=== PATIENT | female | born 1950 | race Two or more races ===

== ENCOUNTER 2020-10-02 12:38 | Emergency (ER) | payer MEDICARE, SELFPAY ==
--- NOTE | ~2020-10-02 | CT_ITS ---
EXAMINATION CT ABDOMEN AND PELVIS WITHOUT CONTRAST CT LUMBAR SPINE WITHOUT CONTRAST CLINICAL INFORMATION: Left back pain COMPARISON: CT abdomen/pelvis dated 05/14/2018c, 08/17/2013 and 06/09/2009. Abdominal ultrasound dated 07/09/2011. TECHNIQUE: Multidetector volumetric CT imaging of the abdomen and pelvis was obtained without the use of intravenous contrast. Coronal and sagittal reformats were reviewed. Dedicated reconstructions of the lumbar spine were created the primary data see. Coronal and sagittal reformats are reviewed. This CT examination was performed using dose optimization techniques as appropriate, variously including the following: *Automated exposure control *Adjustment of mA and/or kV according to patient size (this includes techniques or standardized protocols for targeted exams where dose is matched to indication/reason for exam; i.e. extremities or head) *Use of iterative reconstruction technique DLP: 348 mGy-cm. FINDINGS: IMAGED THORAX: Unremarkable. HEPATOBILIARY: Liver normal in size, contour and morphology. No suspicious lesions. No intra or extrahepatic biliary dilation. Gallbladder is abnormal in appearance demonstrating hyperdense nodular wall thickening (versus cholelithiasis) of the body and fundus, the largest nodular component measuring up to 9 mm. No pericholecystic fluid. PANCREAS: Unremarkable. SPLEEN: Unremarkable. ADRENAL GLANDS: Unremarkable. KIDNEYS, URETERS AND BLADDER: Kidneys normal in size, axis and morphology. No hydronephrosis or urinary calculi. Ureters normal in course and caliber. Bladder grossly unremarkable.. GASTROINTESTINAL TRACT: Left colonic diverticulosis most concentrated within sigmoid colon. No evidence of diverticulitis. PELVIC VISCERA: Calcified fibroid present within the left uterine fundus. Uterus and adnexa otherwise unremarkable. LYMPH NODES: No lymphadenopathy. PERITONEUM/BODY WALL: Unremarkable. VASCULAR STRUCTURES: Aorta is atherosclerotic. OSSEOUS STRUCTURES: No acute or suspicious osseous abnormalities. LUMBAR SPINE: No fracture or traumatic malalignment. Small endplate osteophytes present throughout the lumbar spine. Mild loss of disc space height at L2-L3. Mild facet arthropathy throughout the lumbar spine. Small diffuse disc bulges present at L2-L3, L3-L4, L4-L5 and L5-S1. No significant foraminal narrowing is evident. No significant central canal stenosis. Paraspinal soft tissues unremarkable. CT/CT abdomen pelvis wo con IMPRESSION: * No acute findings within the abdomen or pelvis to explain the patient's symptomatology. * Left colonic diverticulosis without evidence of diverticulitis. * Abnormal appearance of the gallbladder showing nodular hyperdense mural thickening of the body and fundus is stable since 2008, previously shown on ultrasound in 2010 to represent adenomyomatosis. Consider nonemergent repeat ultrasound to exclude underlying mass. * No acute fracture or traumatic malalignment with respect to the lumbar spine. There is mild discogenic degenerative disease with small disc bulges throughout the lumbar spine, however no significant foraminal or central canal stenosis.
[2020-10-02 12:56] VITALS: BP 159/64; PULSE 96; RESP 16; TEMP 36.7; O2SAT 99; BMI 25.5
--- NOTE | 2020-10-02 14:59 | ED_ITS ---
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 Pain has been constant, pressure sensation, radiating to her left lower quadrant. She states she had similar pain 2 years ago but is unsure what it was from. She denies injuries or falls. She denies fevers, chest pain, shortness of breath, vomiting, diarrhea, dysuria, hematuria, incontinence. She has not taken any medication for her pain. Onset (ago): day(s) (2) Radiation: back Severity: moderate Quality: constant Related Data Previous Rx's Medication Instructions Recorded famotidine 40 mg tablet 40 mg PO DAILY #30 tab 08/01/20 docusate sodium 100 mg capsule 100 mg PO DAILY 30 Days #30 cap 08/15/20 sennosides 8.6 mg tablet 17.2 mg PO BEDTIME PRN #60 tab 09/21/20 lidocaine [Lidoderm] 1 patch TOPICAL DAILY PRN 7 Days 10/02/20 #7 ea Allergies Allergy/AdvReac Type Severity Reaction Status Date / Time Penicillins [PENICILLINS] Allergy Severe THROAT Unverified 04/21/20 14:52 CLOSES/HIVES penicillin V Allergy Unknown hives and Verified 04/05/20 00:00 itching Review of Systems Constitutional: Constitutional: Denies fever(s) and Denies frequent falls Eyes: Eyes: Reports no additional eye complaints ENT: Denies dizziness Cardiovascular: Cardiovascular: Denies chest pain and Denies dyspnea Respiratory: Respiratory: Denies dyspnea Gastrointestinal: Gastrointestinal: Denies abdominal pain, Denies diarrhea and Denies vomiting Genitourinary: Genitourinary: Denies hematuria and Denies urinary incontinence Comments: denies dysuria Musculoskeletal: Musculoskeletal: Denies abnormal gait and Denies radiating pain into limb Neurologic: Denies abnormal gait, Denies dizziness and Denies frequent falls Hematologic/Lymphatic: Hematologic/Lymphatic: Denies easy bleeding [facility] Social History Social History (Updated 10/02/20 @ 17:35 by LAST Garcia) Use of substances other than those prescribed or required for medical reasons: No Advance Directives: No Advance Directives Information Provided: Yes Physical Exam Vital Signs: Vital Signs: Last Vital Signs Temp 98.0 F 10/02/20 12:56 Pulse 96 10/02/20 12:56 Resp 16 10/02/20 12:56 BP 159/64 H 10/02/20 12:56 Pulse Ox 99 10/02/20 12:56 Body Mass Index 25.5 Const: Other: sitting upright at the edge of the stretcher HENMT: Head: Yes atraumatic Eyes: Pupils: Equal, round and reactive pupils present Neck: Neck: Yes trachea midline and Yes supple Resp: Effort & Inspection: normal respiratory effort and able to speak in complete sentences Auscultation: clear to auscultation bilaterally Cardio: Rate: regular rate Rhythm: regular rhythm GI: Other: mild tenderness to left flank Inspection: No distended Palpation (GI): Soft to palpation and no guarding Back/Spine/Pelvis: Other: no midline thoracic or lumbar tenderness, tenderness to left paraspinous lumbar region, no rash, negative straight leg raise Skin: Other: warm, dry Neuro: Other: A&O x4, normal strength and sensation bilaterally, able to ambulate with a steady gait Cranial nerves: Yes Equal, round and reactive pupils present Extrem: General: Yes full ROM Psych: Appearance: well kempt Course Course Course Narrative: Patient ambulating in the ED, attempting to leave. I advised her to wait for her discharge instructions, pt. willing to stay. Discussed results. No acute findings, does have an abnormality to her gallbladder which she has had previously, recommended PCP follow up regarding this finding. Labs reveal nonspecific leukocytosis. UA negative. Will dc home with tylenol and lidocaine patches. Return precautions provided. Medical Decision Making [facility] Narrative Medical decision making narrative: 70-year-old female presenting to emergency department with lower back pain Vital significant for mild elevated blood pressure 159/64, nontoxic appearing, hemodynamically stable Will plan for basic labs to assess for leukocytosis, anemia, renal dysfunction. We will check UA for signs of infection. Given her age will plan for CT of her abdomen and pelvis to rule out underlying intra-abdominal process. Will obtain CT of her lumbar spine to rule out fracture. Reassuring she does not have midline tenderness. Pain is atraumatic. No red flags for cord compression. No IV drug use or spinal injections, afebrile, no history of diabetes, low concern for SEA. Renal stone is on the differential given left-sided pain, will assess for hematuria on her UA. Doubt this is AAA given she does not have midline tenderness, no pulsatile masses, will evaluate with CT. Will provide tylenol and lidocaine patch in the ED Lab Data Result diagrams: 10/02/20 15:41 10/02/20 15:41 Labs: Lab Results 10/02/20 10/02/20 10/02/20 Range/Units 15:41 15:41 15:41 WBC 12.0 H (4.8-10.8) X10*3/uL RBC 4.54 (4.20-5.50) X10*6/uL Hgb 12.7 (12.0-16.0) g/dl Hct 38.4 (37-47) % MCV 84.6 (80-98) fL MCH 28.0 (27.0-33.0) pg MCHC 33.1 (31.0-35.0) g/dl RDW 14.1 (11.0-16.0) % Plt Count 281 (160-400) X10*3/uL MPV 10.8 (9.4-12.3) fL Immature Gran % (Auto) 0.2 (0.0-0.4) % Neut % (Auto) 68.4 (45-73) % Lymph % (Auto) 18.1 L (20-40) % [place] % (Auto) 11.0 (2-11) % Eos % (Auto) 1.9 (0-4) % Baso % (Auto) 0.4 (0-2) % Lymph # (Auto) 2.2 (1.2-4.9) X10*3/uL [place] # (Auto) 1.3 H (0.1-1.2) X10*3/uL Eos # (Auto) 0.2 (0.0-0.4) X10*3/uL Baso # (Auto) 0.1 (0.0-0.2) X10*3/uL Abs Immat Gran (auto) 0.03 (0.00-0.03) X10*3/uL Absolute Neuts (auto) 8.2 (2.0-8.3) X10*3/uL Absolute Nucleated RBC 0.000 (0.0-0.012) X10*3/uL Nucleated RBC % (auto) 0.0 (0.0-0.2) /100WBC Sodium 138 (135-145) mmol/L Potassium 3.9 (3.3-5.1) mmol/L Chloride 107 (96-108) mmol/L Carbon Dioxide 21 L (22-29) mmol/L Anion Gap 14 (12-20) BUN 11 (9-16) mg/dL Creatinine 0.75 (0.5-1.4) mg/dL Estim Creat Clear Calc 48.1 Estimated GFR > 60 Random Glucose 94 (60-115) mg/dL Calcium 8.8 (8.4-10.2) mg/dL Urine Color YELLOW Urine Appearance CLEAR Urine pH 5.5 (5.0-8.0) Ur Specific [place] >= 1.030 H (1.005-1.025) Urine Protein NEG (NEG-TRACE) MG/DL Urine Glucose (UA) NEG (NEG) MG/DL Urine Ketones NEG (NEG) MG/DL Urine Blood NEG (NEG) Urine Nitrite NEG (NEG) Ur Leukocyte Esterase NEG (NEG) Urine RBC 0 (0) /HPF Urine WBC 1-4 (0-4) /HPF Ur Squamous Epith Cells 1+ /LPF Urine Bacteria NONE /LPF Urine Mucus TRACE /LPF Discharge Plan Discharge Clinical Impression: Back pain Patient Disposition: Home, Self-Care Instructions: Back Pain (ED) Additional Instructions: You were seen in the emergency department for back pain. Please call your doctor tomorrow to make a follow up appointment next week. Your lab test showed your white blood cell count was slightly elevated however this is nonspecific. Your urine showed you are a little bit dehydrated. Your CT imaging did not find a reason for your pain. Please return if your symptoms worsen, increased pain, fevers, vomiting, difficulty walking, weakness, numbness, tingling, loss of bladder/bowel function. Take tylenol for pain as directed if needed. Use lidocaine patches, remove after 12 hours, sent to your pharmacy. You will need to discuss with your doctor your abnormal appearance of your gallbladder to exclude a mass. Your CT findings: No acute findings within the abdomen or pelvis to explain the patient's symptomatology. * Left colonic diverticulosis without evidence of diverticulitis. * Abnormal appearance of the gallbladder showing nodular hyperdense mural thickening of the body and fundus is stable since 2008, previously shown on ultrasound in 2011 to represent adenomyomatosis. Consider nonemergent repeat ultrasound to exclude underlying mass. * No acute fracture or traumatic malalignment with respect to the lumbar spine. There is mild discogenic degenerative disease with small disc bulges throughout the lumbar spine, however no significant foraminal or central canal stenosis. Prescriptions: New lidocaine [Lidoderm] 5 % adhesive patch,medicated 1 patch topical DAILY PRN (Reason: pain ) 7 Days Qty: 7 RF: 0 No Action famotidine 40 mg tablet 40 mg PO DAILY Qty: 30 RF: 3 docusate sodium [Colace] 100 mg capsule 100 mg PO DAILY 30 Days Qty: 30 RF: 3 sennosides [senna] 8.6 mg tablet 17.2 mg PO BEDTIME PRN (Reason: for constipation) Qty: 60 RF: 2 Interventions: ED Discharge Assessment Last Done: 10/02/20 16:26 Discharge Date/Time: 10/02/20 16:26 Print Language: Croatian
[2020-10-02] MEDS: Lidocaine 4 % Patch ADH..PATCH 1 PATCH TRANSDERMA (15:19)
[2020-10-02] MEDS: Acetaminophen 325 MG TABLET 650 MG PO (15:19)
[2020-10-02 15:46] LABS: MANUAL DIFF FLAG NO
[2020-10-02 15:51] LABS: Basophils Absolute Auto 0.1 X10*3/uL (0.0-0.2); Basophils Percent Auto 0.4 % (0-2); Eosinophils Absolute Auto 0.2 X10*3/uL (0.0-0.4); Eosinophils Percent Auto 1.9 % (0-4); Hematocrit 38.4 % (37-47); Hemoglobin 12.7 g/dl (12.0-16.0); Imm Gran Abs Auto 0.03 X10*3/uL (0.00-0.03); Imm Gran Pct Auto 0.2 % (0.0-0.4); Lymphocytes Absolute Auto 2.2 X10*3/uL (1.2-4.9); Lymphocytes Percent Auto 18.1 % (20-40); Mean Corpuscular HGB Conc 33.1 g/dl (31.0-35.0); Mean Corpuscular Volume 84.6 fL (80-98); Mean Platelet Volume 10.8 fL (9.4-12.3); Monocytes Absolute Auto 1.3 X10*3/uL (0.1-1.2); Neutrophils Absolute Auto 8.2 X10*3/uL (2.0-8.3); Neutrophils Percent Auto 68.4 % (45-73); Platelet Count 281 X10*3/uL (160-400); Red Blood Count 4.54 X10*6/uL (4.20-5.50); Red Cell Distribution Width 14.1 % (11.0-16.0)
[2020-10-02 15:56] LABS: Glucose Urine UA NEG (NEG); Leukocyte Esterase Urine NEG (NEG); Nitrite Urine NEG (NEG); PH 5.5 (5.0-8.0); Specific Gravity - Urine >= 1.030 (1.005-1.025); Urine Blood NEG (NEG); Urine Ketones NEG (NEG); Urine Protein NEG (NEG-TRACE)
[2020-10-02 15:57] LABS: Appearance Urine CLEAR; Color Urine YELLOW
[2020-10-02 16:09] LABS: Anion Gap 14 (12-20); Blood Urea Nitrogen 11 mg/dL (9-16); Calcium 8.8 mg/dL (8.4-10.2); Carbon Dioxide 21 mmol/L (22-29); Chloride 107 mmol/L (96-108); Creatinine Clr Calc Pharmacy 48.1; Estimated Glomerular Filt Rate > 60; Glucose Random 94 mg/dL (60-115); Potassium 3.9 mmol/L (3.3-5.1); Sodium 138 mmol/L (135-145)
[2020-10-02 16:23] LABS: Mucus Urine TRACE /LPF; RBC Urine 0 /HPF (0); Squamous Epithelial Cell Urine 1+ /LPF
== END 2020-10-02 16:26 | disposition home or self-care (01) ==
PROVIDERS: Physician Assistant Medical; Emergency Provider Emergency Medicine Emergency Medical Services; PCP Internal Medicine
DX: M54.5 Low back pain (principal); Z79.899 Other long term (current) drug therapy
CPT/HCPCS: 36415; 72131; 74176; 80048; 81001; 85025; 99283

== ENCOUNTER → 2020-10-03 10:12 | Outpatient (BNVA) | payer MEDICARE, SELFPAY | PROVIDERS: PCP Internal Medicine; Visit Provider Nurse Practitioner | DX: Z13.89 Encounter for screening for other disorder (principal) | CPT/HCPCS: Q3014 ==

== ENCOUNTER 2020-10-04 18:24 | Emergency (ER) | payer MEDICARE, SELFPAY ==
--- NOTE | ~2020-10-04 | XR_ITS ---
EXAMINATION: XR ABDOMEN COMPLETE CLINICAL INDICATION: Abdominal pain COMPARISON: CT abdomen pelvis 10/02/2020 TECHNIQUE: 2 views of the abdomen. FINDINGS: The bowel gas pattern is normal with no evidence of ileus or obstruction. No unusual soft tissue calcifications are noted. Calcifications in left hemipelvis related to uterine fibroids seen on prior CT scan. The bones are unremarkable. XR/XR acute abdomen series IMPRESSION: Unremarkable examination. No acute disease.
--- NOTE | ~2020-10-04 | CT_ITS ---
EXAMINATION: CT ABDOMEN AND PELVIS WITH CONTRAST CLINICAL INFORMATION: Diffuse abdominal pain COMPARISON: CT abdomen 10/02/2020 TECHNIQUE: Multidetector volumetric images were obtained from the superior aspect of the liver through the pubic symphysis following administration 85 mL of Omnipaque 350 intravenous contrast. Sagittal and coronal reformatted images were obtained on the technologist's workstation. Oral contrast: No This CT examination was performed using dose optimization techniques as appropriate, variously including the following: *Automated exposure control *Adjustment of mA and/or kV according to patient size (this includes techniques or standardized protocols for targeted exams where dose is matched to indication/reason for exam; i.e. extremities or head) *Use of iterative reconstruction technique DLP: 375 mGy-cm FINDINGS: LUNG BASES: Findings of emphysema are present at the lung bases. No infiltrates or effusions. LIVER, GALLBLADDER, AND BILIARY TREE: The liver is normal in size, shape, and attenuation. No focal hepatic lesion or biliary ductal dilatation is present. Again seen is a nodular mass arising from the fundus of the gallbladder. Further workup with ultrasound is recommended as mentioned previously. PANCREAS: Unremarkable. SPLEEN: Unremarkable. ADRENAL GLANDS: Unremarkable. KIDNEYS AND URETERS: The kidneys are normal in size, shape, and attenuation. A tiny right renal cyst is present. No solid masses are seen. No hydronephrosis, hydroureter, or calculi seen. No perinephric stranding. BLADDER: Unremarkable. GASTROINTESTINAL TRACT: A small hiatal hernia is present. Of note, in the mid sigmoid there is an area of inflammatory change with wall thickening and pericolonic inflammatory change. There is one area where there appears to be a small 9 mm fluid collection in the lateral of the colon. These are new findings when compared to the 10/02/2020 study and are consistent with acute diverticulitis. The small and large bowel are otherwise unremarkable. The appendix is unremarkable. ABDOMINAL WALL: No significant hernia is appreciated. LYMPH NODES: No retroperitoneal lymphadenopathy. VASCULAR: Calcific plaque is present in the aorta and iliac vessels. No aneurysms. PELVIC VISCERA: Calcification in the uterus probably secondary to old fibroid. Ovaries are unremarkable. No free fluid is seen in the pelvis. OSSEOUS STRUCTURES: Unremarkable. CT/CT abdomen pelvis w con IMPRESSION: Acute uncomplicated sigmoid diverticulitis, Other incidental findings include emphysema, abnormal gallbladder which needs ultrasound follow-up, benign right renal cyst and old uterine fibroids
--- NOTE | ~2020-10-04 | XR_ITS ---
EXAMINATION: XR CHEST CLINICAL INFORMATION: Cough. Pain. COMPARISON: Chest x-ray 05/28/2012 TECHNIQUE: 2 views of the chest were obtained. FINDINGS: No significant abnormality is noted involving the heart, lungs, mediastinum, bony thorax or soft tissues. Orthopedic plate and screws at lower cervical spine. XR/XR chest 2V IMPRESSION: Unremarkable examination.
[2020-10-04 19:01] VITALS: BP 165/75; PULSE 96; RESP 20; TEMP 36.6; O2SAT 96; BMI 26.4
[2020-10-04 20:32] VITALS: BP 144/75; PULSE 92; RESP 14; TEMP 36.8; O2SAT 99
--- NOTE | 2020-10-04 21:26 | ED_ITS ---
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 She denies any associated fevers, chills, nausea, vomiting, diarrhea and states that she has continued to have regular bowel movements without noticing blood. She denies any shortness of breath, chest pain/palpitations, or urinary pain/burning/frequency. MD elicited complaint: abdominal pain Related Data Home Medications Medication Instructions Recorded Confirmed acetaminophen 500 mg tablet 500 mg PO Q6H PRN 10/03/20 atorvastatin 40 mg tablet 40 mg PO DAILY 10/03/20 quetiapine 25 mg tablet 25 mg PO BID 10/03/20 Previous Rx's Medication Instructions Recorded lidocaine [Lidoderm] 1 patch TOPICAL DAILY PRN 7 Days 10/02/20 #7 ea docusate sodium 100 mg capsule 100 mg PO DAILY 30 Days #30 cap 10/03/20 famotidine 40 mg tablet 40 mg PO DAILY #30 tab 10/03/20 xeupzd-[id number]-pionnit 1 cap PO QID 30 Days #120 cap 10/03/20 24,000-76,000-120,000 unit capsule,delayed rel sennosides 8.6 mg tablet 17.2 mg PO BEDTIME PRN #60 tab 10/03/20 sulfamethoxazole-trimethoprim 1 tab PO Q12H 7 Days #14 tab 10/05/20 [Bactrim DS] Allergies Allergy/AdvReac Type Severity Reaction Status Date / Time Penicillins [PENICILLINS] Allergy Severe THROAT Verified 10/03/20 10:13 CLOSES/HIVES Review of Systems Review of Systems Pertinent positives and negatives as stated in HPI 10 point review systems is otherwise negative. Physical Exam Vital Signs: Vital Signs: Last Vital Signs Temp 98.2 F 10/05/20 00:00 Pulse 94 10/05/20 04:00 Resp 15 10/05/20 04:00 BP 108/68 10/05/20 04:00 Pulse Ox 98 10/05/20 01:31 Body Mass Index 26.4 VITAL SIGNS: Reviewed. GENERAL: Initially patient appeared in no acute distress and sitting at the edge of the bed, well developed, well nourished. HEAD: Normocephalic/atraumatic, NOSE: Nares patent bilateral OROPHARYNX: no oral lesions noted, posterior pharynx clear NECK: Supple, no adenopathy LUNGS: Normal breath sounds. No adventitious sounds or accessory muscle use. SpO2<99> CARDIOVASCULAR: Regular rate and rhythm without noted murmurs ABDOMEN: Obese, Soft, diffusely tender on mild palpation, non-distended with bowel sounds. SKIN: Inspection of the skin reveals no rashes NEUROLOGIC: Alert and oriented x 4. Course Course Course Narrative: This is a 70-year-old female with history and clinical presentation of unclear etiology after a very extensive workup on 10/02. She was evaluated for the same complaints on 10/02 and on review all of her records it was an otherwise extensive, benign workup with the exception of a small leuko cytosis that was attributed as nonspecific. On review of all investigations at this visit the leukocytosis has increased and is accompanied by a left shift, but otherwise negative urinalysis. KUB was negative for pattern consistent with obstruction/constipation. Will evaluate with a two view chest x-ray although felt that this will not yield additional information. Unable to get adequate abdominal exam as patient jumps all over when the smallest amount of palpation is performed. On review of all investigations patient has acute diverticulitis (uncomplicated as per Radiology report) and will receive initial antibiotics here in the emergency department and then be discharged on remaining course. On re-evaluation patient states that she feels much better. MDM - Abdominal Pain Lab Data Result diagrams: 10/04/20 21:26 10/04/20 21:26 Labs: Lab Results 10/04/20 10/04/20 10/04/20 Range/Units 21:26 21:26 21:27 WBC 14.4 H (4.8-10.8) X10*3/uL RBC 4.49 (4.20-5.50) X10*6/uL Hgb 12.6 (12.0-16.0) g/dl Hct 38.5 (37-47) % MCV 85.7 (80-98) fL MCH 28.1 (27.0-33.0) pg MCHC 32.7 (31.0-35.0) g/dl RDW 13.8 (11.0-16.0) % Plt Count 309 (160-400) X10*3/uL MPV 11.0 (9.4-12.3) fL Immature Gran % (Auto) 0.3 (0.0-0.4) % Neut % (Auto) 75.4 H (45-73) % Lymph % (Auto) 12.8 L (20-40) % [place] % (Auto) 10.0 (2-11) % Eos % (Auto) 1.1 (0-4) % Baso % (Auto) 0.4 (0-2) % Lymph # (Auto) 1.9 (1.2-4.9) X10*3/uL [place] # (Auto) 1.4 H (0.1-1.2) X10*3/uL Eos # (Auto) 0.2 (0.0-0.4) X10*3/uL Baso # (Auto) 0.1 (0.0-0.2) X10*3/uL Abs Immat Gran (auto) 0.05 H (0.00-0.03) X10*3/uL Absolute Neuts (auto) 10.9 H (2.0-8.3) X10*3/uL Absolute Nucleated RBC 0.000 (0.0-0.012) X10*3/uL Nucleated RBC % (auto) 0.0 (0.0-0.2) /100WBC Sodium 139 (135-145) mmol/L Potassium 4.1 (3.3-5.1) mmol/L Chloride 106 (96-108) mmol/L Carbon Dioxide 22 (22-29) mmol/L Anion Gap 15 (12-20) BUN 8 L (9-16) mg/dL Creatinine 0.78 (0.5-1.4) mg/dL Estim Creat Clear Calc 44.7 Estimated GFR > 60 Random Glucose 112 (60-115) mg/dL Lactic Acid 1.1 (0.5-2.0) mmol/L Calcium 8.9 (8.4-10.2) mg/dL Total Bilirubin 0.6 (0.0-1.0) mg/dL AST 17 (5-31) U/L ALT 12 (0-31) U/L Alkaline Phosphatase 110 (39-117) U/L Total Protein 8.0 (6.5-8.0) g/dL Albumin 4.3 (3.5-5.0) g/dL Urine Color Urine Appearance Urine pH (5.0-8.0) Ur Specific [place] (1.005-1.025) Urine Protein (NEG-TRACE) MG/DL Urine Glucose (UA) (NEG) MG/DL Urine Ketones (NEG) MG/DL Urine Blood (NEG) Urine Nitrite (NEG) Ur Leukocyte Esterase (NEG) 10/04/20 Range/Units 21:52 WBC (4.8-10.8) X10*3/uL RBC (4.20-5.50) X10*6/uL Hgb (12.0-16.0) g/dl Hct (37-47) % MCV (80-98) fL MCH (27.0-33.0) pg MCHC (31.0-35.0) g/dl RDW (11.0-16.0) % Plt Count (160-400) X10*3/uL MPV (9.4-12.3) fL Immature Gran % (Auto) (0.0-0.4) % Neut % (Auto) (45-73) % Lymph % (Auto) (20-40) % [place] % (Auto) (2-11) % Eos % (Auto) (0-4) % Baso % (Auto) (0-2) % Lymph # (Auto) (1.2-4.9) X10*3/uL [place] # (Auto) (0.1-1.2) X10*3/uL Eos # (Auto) (0.0-0.4) X10*3/uL Baso # (Auto) (0.0-0.2) X10*3/uL Abs Immat Gran (auto) (0.00-0.03) X10*3/uL Absolute Neuts (auto) (2.0-8.3) X10*3/uL Absolute Nucleated RBC (0.0-0.012) X10*3/uL Nucleated RBC % (auto) (0.0-0.2) /100WBC Sodium (135-145) mmol/L Potassium (3.3-5.1) mmol/L Chloride (96-108) mmol/L Carbon Dioxide (22-29) mmol/L Anion Gap (12-20) BUN (9-16) mg/dL Creatinine (0.5-1.4) mg/dL Estim Creat Clear Calc Estimated GFR Random Glucose (60-115) mg/dL Lactic Acid (0.5-2.0) mmol/L Calcium (8.4-10.2) mg/dL Total Bilirubin (0.0-1.0) mg/dL AST (5-31) U/L ALT (0-31) U/L Alkaline Phosphatase (39-117) U/L Total Protein (6.5-8.0) g/dL Albumin (3.5-5.0) g/dL Urine Color YELLOW Urine Appearance CLEAR Urine pH 5.0 (5.0-8.0) Ur Specific [place] >= 1.030 H (1.005-1.025) Urine Protein NEG (NEG-TRACE) MG/DL Urine Glucose (UA) NEG (NEG) MG/DL Urine Ketones NEG (NEG) MG/DL Urine Blood NEG (NEG) Urine Nitrite NEG (NEG) Ur Leukocyte Esterase NEG (NEG) ECG Data Attestation: I personally reviewed and interpreted this ECG as follows: Prior ECG tracings: not available for review Interpretation: Normal sinus rhythm, HR-94, no evidence of acute ischemia, DE/QRS/QTC are within normal limits. Discharge Plan Discharge Clinical Impression: Diverticulitis Patient Disposition: Home, Self-Care Instructions: Diverticulitis (ED), Diverticulitis Diet (ED) Additional Instructions: 1. Reanude todos los medicamentos caseros seg?n lo prescrito. 2. Recomiende el uso de Tylenol o ibuprofeno de venta pool seg?n sea necesario para controlar el dolor y inderjit se indica en el empaque exterior. 3. Deber? regresar a gastroenterolog?a para informarles de ma nuevo diagn?stico de diverticulitis. No dude en volver al servicio de urgencias por cualquier empeoramiento corrina de jitendra s?ntomas, inderjit la imposibilidad de retener el agua o la comida. Prescriptions: New sulfamethoxazole-trimethoprim [Bactrim DS] 800-160 mg tablet 1 tab PO Q12H 7 Days Qty: 14 RF: 0 No Action lidocaine [Lidoderm] 5 % adhesive patch,medicated 1 patch topical DAILY PRN (Reason: pain ) 7 Days Qty: 7 RF: 0 Creon 24,000-76,000 -120,000 unit capsule,delayed release(DR/EC) 1 cap PO QID 30 Days Qty: 120 RF: 2 famotidine 40 mg tablet 40 mg PO DAILY Qty: 30 RF: 3 docusate sodium [Colace] 100 mg capsule 100 mg PO DAILY 30 Days Qty: 30 RF: 3 sennosides [senna] 8.6 mg tablet 17.2 mg PO BEDTIME PRN (Reason: for constipation) Qty: 60 RF: 6 Referrals: Chayo Yo ANP-C [Nurse Practitioner] - 2 days (Re-evaluation outpatient management after patient diagnosed with diverticulitis on 10/05 in the emergency department.) Anita Sarmiento MD [Primary Care Provider] - 2 days (Re-evaluation and outpatient management after diagnosed with diverticulitis on 10/05.) Print Language: Kinyarwanda [facility] Past Medical History Source: nursing notes reviewed Surgical History History of esophagogastroduodenoscopy (EGD) Hx of colonoscopy Hx of foot surgery Hx of laminectomy Hx of tubal ligation Family History Family History Family/Other No problems noted. Social History Social History Alcohol intake: never Smoking Status: Unknown if ever smoked Use of substances other than those prescribed or required for medical reasons: No Advance Directives: No Advance Directives Information Provided: Yes
[2020-10-04 21:36] LABS: MANUAL DIFF FLAG NO
[2020-10-04 21:38] LABS: Basophils Absolute Auto 0.1 X10*3/uL (0.0-0.2); Basophils Percent Auto 0.4 % (0-2); Eosinophils Absolute Auto 0.2 X10*3/uL (0.0-0.4); Eosinophils Percent Auto 1.1 % (0-4); Hematocrit 38.5 % (37-47); Hemoglobin 12.6 g/dl (12.0-16.0); Imm Gran Abs Auto 0.05 X10*3/uL (0.00-0.03); Imm Gran Pct Auto 0.3 % (0.0-0.4); Lymphocytes Absolute Auto 1.9 X10*3/uL (1.2-4.9); Lymphocytes Percent Auto 12.8 % (20-40); Mean Corpuscular HGB Conc 32.7 g/dl (31.0-35.0); Mean Corpuscular Hemoglobin 28.1 pg (27.0-33.0); Mean Corpuscular Volume 85.7 fL (80-98); Monocytes Absolute Auto 1.4 X10*3/uL (0.1-1.2); Neutrophils Absolute Auto 10.9 X10*3/uL (2.0-8.3); Neutrophils Percent Auto 75.4 % (45-73); Platelet Count 309 X10*3/uL (160-400); Red Blood Count 4.49 X10*6/uL (4.20-5.50); Red Cell Distribution Width 13.8 % (11.0-16.0); White Blood Count 14.4 X10*3/uL (4.8-10.8)
[2020-10-04 21:57] LABS: Lactic Acid 1.1 mmol/L (0.5-2.0)
[2020-10-04 22:01] LABS: Alanine Aminotransferase 12 U/L (0-31); Albumin Level 4.3 g/dL (3.5-5.0); Alkaline Phosphatase 110 U/L (39-117); Anion Gap 15 (12-20); Aspartate Amino Transferase 17 U/L (5-31); Bilirubin Total 0.6 mg/dL (0.0-1.0); Blood Urea Nitrogen 8 mg/dL (9-16); Calcium 8.9 mg/dL (8.4-10.2); Carbon Dioxide 22 mmol/L (22-29); Chloride 106 mmol/L (96-108); Creatinine Clr Calc Pharmacy 44.7; Estimated Glomerular Filt Rate > 60; Glucose Random 112 mg/dL (60-115); Potassium 4.1 mmol/L (3.3-5.1); Sodium 139 mmol/L (135-145)
[2020-10-04 22:06] LABS: Glucose Urine UA NEG (NEG); Leukocyte Esterase Urine NEG (NEG); Nitrite Urine NEG (NEG); Specific Gravity - Urine >= 1.030 (1.005-1.025); Urine Blood NEG (NEG); Urine Ketones NEG (NEG); Urine Protein NEG (NEG-TRACE)
[2020-10-04 22:07] LABS: Appearance Urine CLEAR; Color Urine YELLOW
[2020-10-04 22:37] VITALS: BP 147/60; PULSE 101; RESP 22; O2SAT 98
--- NOTE | 2020-10-04 23:16 | PC.NURSE ---
Addendum entered by Anni Flores 10/04/20 23:19: aware and will speak with patient. Original Note: Patient was informed that I need to put an iv in and that she needed a cat scan. Patient refused and stated she wanted to go home.
[2020-10-05] VITALS: PULSE 101; RESP 22; TEMP 36.8; O2SAT 98
[2020-10-05] MEDS: 0.9 % Sodium Chloride 1,000 ML 999 ML IV (00:16)
[2020-10-05] MEDS: iohexoL 350 MG/ML 100 ML INFUS..BTL 85 ML IV (00:19)
--- NOTE | 2020-10-05 00:54 | ECG_ITS ---
Test Reason : BASELINE Blood Pressure : / mmHG Vent. Rate : 094 BPM Atrial Rate : 094 BPM P-R Int : 128 ms QRS Dur : 066 ms QT Int : 368 ms P-R-T Axes : 070 081 074 degrees QTc Int : 460 ms Normal sinus rhythm Nonspecific ST abnormality Abnormal ECG When compared with ECG of 25-APR-2018 18:09, No significant change was found Referred By: Tangela Garcia Electronically Signed By:KRISTY MACIAS
[2020-10-05] MEDS: levoFLOXacin/D5W 750 MG/150 ML PIGGYBACK 100 MG IV (01:26)
[2020-10-05 01:31] VITALS: BP 113/69; PULSE 96; RESP 14; O2SAT 98
[2020-10-05] MEDS: ondansetron HCL 4 MG/2 ML VIAL IVPUSH (01:37)
[2020-10-05] MEDS: Ketorolac Tromethamine 15 MG/ML VIAL IVPUSH (01:37)
--- NOTE | 2020-10-05 01:58 | PC.NURSE ---
Patient complaint of pain and nausea. MD aware and patient medicated per emar as noted.
[2020-10-05] MEDS: metroNIDAZOLE/NS 500 MG/100 ML PIGGYBACK 100 MG IV (03:45)
--- NOTE | 2020-10-05 03:47 | PC.NURSE ---
Patient's first iv abx just finished due to it having to be paused so that she could use the bathroom x 6 times. 2nd antibiotc infusing now
[2020-10-05 04:00] VITALS: BP 108/68; PULSE 94; RESP 15
== END 2020-10-05 04:50 | disposition home or self-care (01) ==
PROVIDERS: Emergency Provider Student in an Organized Health Care Education/Training Program; PCP Internal Medicine
DX: K57.32 Diverticulitis of large intestine without perforation or abscess without bleeding (principal); R10.9 Unspecified abdominal pain; M54.5 Low back pain; Z79.899 Other long term (current) drug therapy
CPT/HCPCS: 36415; 71046; 74022; 74177; 80053; 81003; 83605; 85025; 93005; 96361; 96365; 96375; 99284; J1885; J1956; J2405; Q9967

== ENCOUNTER → 2020-10-13 13:38 | Outpatient (BNVA) | payer MEDICARE, SELFPAY | PROVIDERS: PCP Internal Medicine; Visit Provider Surgery | DX: D13.5 Benign neoplasm of extrahepatic bile ducts (principal); K57.92 Diverticulitis of intestine, part unspecified, without perforation or abscess without bleeding | CPT/HCPCS: 99202 ==

== ENCOUNTER 2020-10-24 08:40 | Outpatient (REF) | payer MEDICARE, SELFPAY ==
--- NOTE | ~2020-10-24 | US_ITS ---
EXAMINATION: US ABDOMEN LIMITED CLINICAL INFORMATION: Benign neoplasm of extrahepatic bile ducts. COMPARISON: CT abdomen and pelvis 10/05/2020. X-ray abdomen 10/04/2020. Ultrasound abdomen complete 07/09/2011. TECHNIQUE: Real-time imaging of the right upper quadrant abdominal viscera. FINDINGS: PANCREAS: Normal. LIVER: Normal. The liver is normal in size. The liver contour is normal. Parenchymal echogenicity is normal. No focal hepatic lesion. There is no intrahepatic biliary duct dilatation seen. GALLBLADDER: There is a small Phrygian cap seen. There is an echogenic lesion along the inner gallbladder wall with calcification and dirty shadowing, question adenomyomatosis. No echogenic stones or wall thickness seen. COMMON BILE DUCT: Normal in caliber measuring 0.5 cm in diameter. RIGHT KIDNEY: Normal. No hydronephrosis. No renal calculi or focal parenchymal lesions. The kidney measures 10.3 cm in maximum dimension. FREE FLUID: None. US/US abdomen limited IMPRESSION: Likely adenomyomatosis with echogenic wall calcification. 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 Visualized pancreas, liver, CBD, and right kidney are unremarkable.
== END 2020-10-24 08:41 | disposition home or self-care (01) ==
LOC: HO.US 08:40
PROVIDERS: Visit Provider Surgery
DX: D13.5 Benign neoplasm of extrahepatic bile ducts (principal)
CPT/HCPCS: 76705

== ENCOUNTER → 2020-10-31 10:47 | Outpatient (BNVA) | payer MEDICARE, SELFPAY | PROVIDERS: PCP Internal Medicine; Visit Provider Surgery | DX: D13.5 Benign neoplasm of extrahepatic bile ducts (principal) | CPT/HCPCS: 99212 ==

== ENCOUNTER 2021-01-03 08:50 | Outpatient (REF) | payer MEDICARE, SELFPAY ==
--- NOTE | ~2021-01-03 | XR_ITS ---
EXAMINATION: XR THORACOLUMBAR SPINE CLINICAL INFORMATION: Pain COMPARISON: None TECHNIQUE: 3 views of the thoracic spine including swimmer's view FINDINGS: Bone alignment is normal. No fracture or dislocation is seen. Disc spaces are normal. Paraspinal soft tissues are normal. There is postsurgical change with fusion hardware at C5-C6. There is degenerative spondylosis and degenerative disc disease at C4-C5 and C6-C7. XR/XR thoracic spine 2V IMPRESSION: Unremarkable thoracic spine. Postsurgical changes of the cervical spine.
== END 2021-01-03 08:51 | disposition home or self-care (01) ==
LOC: HO.XRAY 08:50
PROVIDERS: PCP Internal Medicine; Visit Provider Nurse Practitioner
DX: K21.9 Gastro-esophageal reflux disease without esophagitis (principal); D13.5 Benign neoplasm of extrahepatic bile ducts; K59.04 Chronic idiopathic constipation; M54.6 Pain in thoracic spine
CPT/HCPCS: 72070; Q3014

== ENCOUNTER → 2021-02-09 08:07 | Outpatient (REF) | payer MEDICARE, SELFPAY ==
--- NOTE | ~2021-02-09 | NM_ITS ---
EXAMINATION: NM BILIARY TRACT WITH ORAL FATTY MEAL CLINICAL INFORMATION: Nausea and abdominal pain. Gastroesophageal reflux disease without esophagitis. COMPARISON: The previous study dated 08/14/2011 performed with intravenous CCK analog is available for comparison. TECHNIQUE: Serial gamma scintillation camera images were obtained over the abdomen for a total observation period of 129 minutes following the intravenous administration of 5.0 mCi Tc-99m Mebrofenin. FINDINGS: There is good concentration of activity in the liver by 5 minutes post injection. Biliary activity is well visualized by 20 minutes postinjection and the gallbladder is well visualized by 30 minutes postinjection. There is no small bowel activity visualized up to 60 minutes. At 66 minutes post Mebrofenin injection, 8 ounces of Ensure-plus Brand was administered orally and an additional 60 minutes of images were obtained. Some gallbladder emptying occurs following ingestion of the fatty meal, but at the end of the study there is abnormal retention of activity in the gallbladder. At this time there is almost complete clearance of activity from the liver and visualization of diffuse small bowel activity. The calculated gallbladder ejection fraction is 26% (normal gallbladder ejection fraction using Ensure supplement orally is greater than 33%). NM/NM hepatobiliary wo pharm IMPRESSION: 1. Visualization of the gallbladder is evidence of a patent cystic duct and strong evidence against the diagnosis of acute cholecystitis. The common bile duct is patent. Liver function appears normal. 2. Poor gallbladder emptying and a low gallbladder ejection fraction are evidence of impaired gallbladder contractility and most likely due to chronic cholecystitis.
== END ==
LOC: HO.NUCMED 08:07
PROVIDERS: Visit Provider Nurse Practitioner
DX: K21.9 Gastro-esophageal reflux disease without esophagitis (principal)
CPT/HCPCS: 78226; A9537

== ENCOUNTER → 2021-03-17 12:58 | Outpatient (BNVA) | payer MEDICARE, SELFPAY | PROVIDERS: PCP Internal Medicine; Referring Provider Internal Medicine; Visit Provider Nurse Practitioner | DX: R10.9 Unspecified abdominal pain (principal); M54.6 Pain in thoracic spine; K57.92 Diverticulitis of intestine, part unspecified, without perforation or abscess without bleeding; K21.9 Gastro-esophageal reflux disease without esophagitis; D13.5 Benign neoplasm of extrahepatic bile ducts | CPT/HCPCS: 99212 ==

== ENCOUNTER 2021-05-12 07:30 | Outpatient (REF) | payer MEDICARE, SELFPAY ==
--- NOTE | ~2021-05-12 | XR_ITS ---
EXAMINATION: XR SHOULDER, LEFT CLINICAL INFORMATION: Pain COMPARISON: None TECHNIQUE: AP external rotation, Grashey, scapular Y, and axillary views of the left shoulder. FINDINGS: The bones and soft tissues are normal. No fracture. Glenohumeral and acromioclavicular alignment is anatomic with normal joint space. No abnormal soft tissue calcifications. XR/XR shoulder LT min 2V IMPRESSION: Unremarkable left shoulder.
== END 2021-05-12 07:31 | disposition home or self-care (01) ==
LOC: HO.HOSX 07:30
PROVIDERS: Visit Provider Physician Assistant
DX: M75.82 Other shoulder lesions, left shoulder (principal)
CPT/HCPCS: 20610; 73030; 99202; J1040

== ENCOUNTER → 2021-07-20 09:53 | Outpatient (BNVA) | payer MEDICARE, SELFPAY | PROVIDERS: Referring Provider Nurse Practitioner Primary Care; Visit Provider Nurse Practitioner | DX: K59.00 Constipation, unspecified (principal); K21.9 Gastro-esophageal reflux disease without esophagitis; D13.5 Benign neoplasm of extrahepatic bile ducts; D12.6 Benign neoplasm of colon, unspecified | CPT/HCPCS: 99212 ==

== ENCOUNTER 2021-07-25 11:35 | Outpatient (REF) | payer MEDICARE, SELFPAY ==
--- NOTE | ~2021-07-25 | MM_ITS ---
EXAMINATION: BONE DENSITOMETRY CLINICAL INDICATION: Menopause. COMPARISON: Previous BD dated 10/17/2010 and baseline BD dated 08/07/2005. TECHNIQUE: Using a [employer] DXA System (software version: 13.1) manufactured by [employer], dual-energy x-ray absorptiometry was performed of the lumbar spine and left hip. The images are of good technical quality. Summary results are attached. FINDINGS: AP SPINE L1-L4: Current: BMD 1.010 g/cm2, Z-score 0.6, T-score -1.4, osteopenia, 0.8% decrease from previous, 8.1% decrease from baseline (<5% change is not significant). Prior: BMD 1.018 g/cm2. Baseline: BMD 1.099 g/cm2. LEFT FEMUR, NECK: Current: BMD 0.871 g/cm2, Z-score 0.7, T-score -1.2, osteopenia. Prior: BMD 0.917 g/cm2. Baseline: BMD 0.961 g/cm2. LEFT FEMUR, TOTAL: Current: BMD 0.904 g/cm2, Z-score 0.9, T-score -0.8, normal, 4.6% decrease from previous, 5.9% decrease from baseline (<5% change is not significant). Prior: BMD 0.948 g/cm2. Baseline: BMD 0.961 g/cm2. IDENTIFIED RISK FACTORS: Menopause. HISTORY OF FRACTURE: None listed. MEDICATIONS: None listed. MM/XR DEXA axial skeleton IMPRESSION: 1. DIAGNOSIS: Osteopenia based on the lowest T-score value of -1.4 in the lumbar spine applying World Health Organization criteria. 2. 10-YEAR FRACTURE RISK PREDICTION, FRAX: Major osteoporotic fracture (clinical spine, forearm, hip or shoulder) 5.1%. Hip fracture 0.6%. 3. Treatment Recommendations: NOF guidelines recommend consideration for treatment in postmenopausal women and men age 50 and older presenting with the following: -A hip or vertebral (clinical or morphometric) fracture. -T-score less than or equal to -2.5 at the femoral neck or spine after appropriate evaluation to exclude secondary causes. -Low bone mass at the hip or spine and a 10-year fracture probability by FRAX of greater than or equal to 3% for hip fracture or greater than or equal to 20% for major osteoporotic fracture based on the [place] adapted WHO algorithm. 4. Other Recommendations: All treatment decisions require clinical judgment and consideration of individual patient factors, including patient preferences, comorbidities, previous drug use, risk factors not captured in the FRAX model (e.g. frailty, falls, vitamin D deficiency, increased bone turnover, interval significant decline in bone density) and possible under or overestimation of fracture risk by FRAX. Additional medical evaluation for secondary cause of low bone mineral density may be appropriate. FUTURE SCAN RECOMMENDATION: People with diagnosed cases of osteoporosis or at high risk for fracture should have regular bone mineral density tests. For patients eligible for Medicare, routine testing is allowed once every 2 years. The testing frequency can be increased to one year for patients who have rapidly progressing disease, those who are receiving or discontinuing medical therapy to restore bone mass, or have additional risk factors.
--- NOTE | ~2021-07-25 | MM_ITS ---
EXAMINATION: MM SCREENING DIGITAL BREAST TOMOSYNTHESIS, BILATERAL CLINICAL INFORMATION: Screening. Asymptomatic. The lifetime risk of breast cancer based on the Tyrer-Cuzick Model is 3%. COMPARISON: Mammography: 01/06/2019, 12/16/2017, 11/30/2016 TECHNIQUE: Digital breast tomosynthesis is performed in both the craniocaudal and mediolateral oblique views along with computer-aided detection (CAD). Synthesized 2D images are generated from the tomosynthesis. FINDINGS: There are scattered areas of fibroglandular density (ACR BI-RADS breast composition Category b). There are no significant masses, abnormal calcifications, or other abnormalities. Parenchymal pattern is similar to prior studies. There is no developing density or architectural abnormality. The axilla and skin contours are unremarkable. No significant changes. MM/MM tomosynthesis screening BI IMPRESSION: No mammographic evidence of malignancy. ASSESSMENT: BI-RADS 1: Negative RECOMMENDATION: Routine annual mammography screening. This patient's information was entered into a reminder system with a target due date for their next mammogram.
== END 2021-07-25 11:36 | disposition home or self-care (01) ==
LOC: HO.MAMMO 11:35
PROVIDERS: Visit Provider Nurse Practitioner Primary Care
DX: Z12.31 Encounter for screening mammogram for malignant neoplasm of breast (principal); Z13.820 Encounter for screening for osteoporosis; Z78.0 Asymptomatic menopausal state; M85.80 Other specified disorders of bone density and structure, unspecified site
CPT/HCPCS: 77063; 77067; 77080

== ENCOUNTER 2021-10-30 12:38 | Outpatient (REF) | payer MEDICARE, SELFPAY ==
--- NOTE | 2021-10-30 13:46 | MHC.AU.ANO ---
Adult Audiological Evaluation Date of Visit: 10/30/21 Piano Refinisher Used: Haitian- In Person Reason for Appointment: Patient reports long-standing difficulty hearing out of her right ear that is relieved by popping her ears. Ear History: Recent Ear Drainage: None Reported Recent Ear Pain: None Reported Family History of Hearing Loss?: No Recent Ear Infections: None Reported Ear Infections in Childhood: None Reported History of Ear Wax Buildup: Both Ears Bothersome Tinnitus/Ringing/Noises in Ears: None Reported Blocked/Full Sensation in Ear(s): Right Ear Medical History: Medical History: Per medical note, history of seizure disorder, migraine, GERD, allergies Otoscopy: Right Ear: Partially occluded with cerumen Left Ear: Partially occluded with cerumen Tympanometry: Tympanometry performed due to: To assess integrity of the middle ear system Right Ear: Normal Middle Ear System (Type A) Left Ear: Reduced Middle Ear Compliance (Type As) Hearing Evaluation: Transducer(s) Used: Circumaural Headphones Method: Conventional Audiometry Stimuli Used: Pure Tones Right Ear: Description of Hearing: Moderate to severe mixed hearing loss Left Ear: Description of Hearing: Moderate to severe mixed hearing loss Speech Recognition Threshold (SRT): Method Used: Recorded Lists Stimuli Used: Haitian Trisyllable Words Right Ear: 65 dBHL Left Ear: 70 dBHL Word Discrimination: Method: Recorded Lists Word Lists Used: Lista Bisil?bica (Haitian) Right Ear: 92% at 85 dBHL Left Ear: 96% at 85 dBHL Interpretation of Results: Patient presents with moderate to severe mixed hearing loss. Canals are partially occluded with deeply impacted cerumen. Patient also has history of allergies/congestion that contribute to fluctuations in hearing, worse in the right ear. Recommendations: Referral to Ear, Nose, and Throat is recommended. Audiological re-evaluation after medical management. Patient was advised to discontinue use of q-tips. Recommended ear drops, such as EarWaxMD or Debrox. Diagnosis: Primary Diagnosis: H90.6 Mixed Hearing Loss, Bilateral Signature: Provider: Velvet Paredes, [facility]
== END 2021-10-30 12:39 | disposition home or self-care (01) ==
LOC: HO.SH 12:38
PROVIDERS: Visit Provider Nurse Practitioner Primary Care
DX: Z01.118 Encounter for examination of ears and hearing with other abnormal findings (principal); H90.6 Mixed conductive and sensorineural hearing loss, bilateral
CPT/HCPCS: 92557; 92567

== ENCOUNTER → 2022-01-18 09:54 | Outpatient (BNVA) | payer MEDICARE, SELFPAY | PROVIDERS: Visit Provider Nurse Practitioner | DX: K21.9 Gastro-esophageal reflux disease without esophagitis (principal); K59.00 Constipation, unspecified; Z79.899 Other long term (current) drug therapy | CPT/HCPCS: 99212 ==

== ENCOUNTER → 2022-06-19 13:00 | Outpatient (BNVA) | payer MEDICARE, SELFPAY | PROVIDERS: PCP Nurse Practitioner Primary Care; Visit Provider Nurse Practitioner | DX: K21.9 Gastro-esophageal reflux disease without esophagitis (principal); K59.00 Constipation, unspecified; D13.5 Benign neoplasm of extrahepatic bile ducts | CPT/HCPCS: 99212 ==

== ENCOUNTER → 2022-07-31 09:01 | Outpatient (BNVA) | payer MEDICARE, SELFPAY | PROVIDERS: PCP Nurse Practitioner Primary Care; Visit Provider Nurse Practitioner | DX: K21.9 Gastro-esophageal reflux disease without esophagitis (principal); K58.9 Irritable bowel syndrome, unspecified; R10.9 Unspecified abdominal pain; Z79.899 Other long term (current) drug therapy | CPT/HCPCS: 99212 ==

== ENCOUNTER 2022-09-19 10:54 | Outpatient (REF) | payer MEDICARE, SELFPAY ==
--- NOTE | ~2022-09-19 | US_ITS ---
EXAMINATION: US EXTRACRANIAL CAROTID DUPLEX, BILATERAL CLINICAL INFORMATION: Carotid bruit. COMPARISON: None TECHNIQUE: Real-time ultrasound and Doppler techniques (integrating B-mode 2-D vascular images, Doppler spectral analysis and color-flow Doppler imaging) were utilized to interrogate the extracranial carotid arteries, the vertebral arteries and proximal subclavian arteries bilaterally. The degree of stenosis is determined by criteria similar to NASCET. FINDINGS: Right Side: 1. There is mild atherosclerotic plaque seen in the bifurcation/proximal ICA region. 2. The common carotid artery PSV proximally is 99 cm/s and distally 106 cm/s. There is soft plaque in the distal common carotid artery. 3. The proximal internal carotid artery velocities are 105 cm/s systolic and 40 cm/s diastolic. 4. The proximal external carotid artery PSV is 104 cm/s. 5. The vertebral artery shows antegrade flow. 6. The subclavian artery waveforms are normal. Left Side: 1. There is no atherosclerotic plaque seen in the bifurcation/proximal ICA region. 2. The common carotid artery PSV proximally is 122 cm/s and distally 113 cm/s. 3. The proximal internal carotid artery velocities are 165 cm/s systolic and 66 cm/s diastolic. 4. The proximal external carotid artery PSV is 118 cm/s. 5. The vertebral artery shows antegrade flow. 6. The subclavian artery waveforms are normal. US/US carotid duplex BI IMPRESSION: 1. RIGHT: Minimal, non-hemodynamically significant stenosis of the proximal right internal carotid artery corresponding to a 0-49% stenosis by velocity criteria. 2. LEFT: Normal left internal carotid artery without atherosclerotic plaque or hemodynamically significant stenosis.
== END 2022-09-19 10:55 | disposition home or self-care (01) ==
LOC: HO.US 10:54
PROVIDERS: PCP Nurse Practitioner Primary Care; Visit Provider Nurse Practitioner Primary Care
DX: R09.89 Other specified symptoms and signs involving the circulatory and respiratory systems (principal)
CPT/HCPCS: 93880

== ENCOUNTER 2022-10-27 08:04 | Inpatient (IN) | payer OTHER, SELFPAY ==
[2022-10-27] VITALS (11 sets, daily range): BP systolic 124–150; BP diastolic 57–78; PULSE 70–95; RESP 16–20; TEMP 36.1–36.8; O2SAT 97–100; BMI 25.4; BMI 26.1
--- NOTE | ~2022-10-27 | CT_ITS ---
EXAMINATION: CT ABDOMEN AND PELVIS WITHOUT CONTRAST CLINICAL INFORMATION: Anemia. Evaluate for colon mass, bleeding. COMPARISON: 10/05/2020. TECHNIQUE: Multidetector volumetric imaging was performed from the superior aspect of the liver through the pubic symphysis. Sagittal and coronal reformatted images were obtained on the technologist's workstation. This CT examination was performed using dose optimization techniques as appropriate, variously including the following: *Automated exposure control *Adjustment of mA and/or kV according to patient size (this includes techniques or standardized protocols for targeted exams where dose is matched to indication/reason for exam; i.e. extremities or head) *Use of iterative reconstruction technique DLP: 416 mGy-cm FINDINGS: LUNG BASES: The bronchial hickman within the visualized bases appear to be chronically thickened. The lung bases chronically have mosaic attenuation. Scattered linear opacities of mild atelectasis in the bases. No pulmonary consolidation or pleural effusion. LIVER: The liver has normal size, shape, and attenuation. No evidence of liver mass. GALLBLADDER AND BILIARY TREE: There appear to be a few small calcified stones of the gallbladder. Also, there are old nodular-appearing foci of wall thickening that remain similar in appearance compared to prior exams, including 05/14/2018. The long-term stability suggests that this is likely a benign observation and could represent changes related to adenomyomatosis and/or stable polyps. PANCREAS: Normal. No edema, pancreatic ductal dilatation or mass. SPLEEN: Normal. ADRENAL GLANDS: Normal. KIDNEYS AND URETERS: The kidneys have normal size and cortical thickness. No perinephric edema or fluid collection. No urolithiasis or hydroureteronephrosis. BLADDER: Normal. No calculi or wall thickening. BOWEL AND PERITONEUM: There appears to be a very small sliding-type hiatal hernia of the stomach. No dilated bowel loops. No focal bowel wall thickening, mesenteric fat stranding or free fluid. The appendix is normal. There are diverticula of the sigmoid colon without evidence of diverticulitis. ABDOMINAL WALL: Chronic diastases of rectus abdominis muscles without focal abdominal wall hernia. VASCULATURE: Atherosclerotic calcification of the abdominal aorta without aneurysm. LYMPH NODES: No pathologic sized lymph nodes in the abdomen or pelvis. No inguinal lymphadenopathy. PELVIC VISCERA: 1 cm calcified leiomyoma of the uterine fundus. No adnexal mass. No pelvic free fluid. MUSCULOSKELETAL: Unremarkable. CT/CT abdomen pelvis wo IV con IMPRESSION: * No acute imaging abnormalities in the abdomen or pelvis. No intraperitoneal or retroperitoneal hemorrhage. * Chronic foci of nodular-appearing wall thickening of the gallbladder and likely mild cholelithiasis. The nodularity of the gallbladder wall might be secondary to stable polyps and/or foci of adenomyomatosis. The stability since 05/14/2018 is reassuring this is likely benign. If not already performed, obtain correlation with gallbladder ultrasound and if necessary intermittent sonographic surveillance to ensure continued stability. * Diverticulosis of the sigmoid colon without diverticulitis. No overt colonic mass.
--- NOTE | 2022-10-27 09:22 | ED_ITS ---
HPI - General Adult General Chief complaint: Recheck/Abnormal Lab/Rx Stated complaint: hemoglobin low - pt tired feeling Time Seen by Provider: 10/27/22 08:47 Source: patient Mode of arrival: ambulatory Limitations: no limitations History of Present Illness HPI narrative: This is a 72 years old female presented to the emergency department because of normal outpatient labs she was told that she has low hemoglobin. Patient denies any chest pain shortness of breath, she denies any hematochezia any melena. Onset (ago): day(s) (2) Radiation: non-radiation Severity: moderate Relieving factors: none Exacerbating factors: none Associated symptoms: denies other symptoms Related Data Home Medications Medication Instructions Recorded Confirmed acetaminophen 500 mg tablet 500 mg PO Q6H PRN 10/03/20 10/31/20 (Tylenol Extra Strength) atorvastatin 40 mg tablet 40 mg PO DAILY 10/03/20 10/31/20 quetiapine 25 mg tablet 25 mg PO BID 10/03/20 10/31/20 fluticasone propionate 50 1 spray intranasal DAILY 10/13/20 10/31/20 mcg/actuation nasal spray,suspension calcium carbonate 600 mg-vitamin 1 tab PO BID 06/19/22 D3 5 mcg (200 unit) tablet Previous Rx's Medication Instructions Recorded lidocaine 5 % topical patch 1 patch topical DAILY PRN pain 7 10/02/20 (Lidoderm) days #7 ea docusate sodium 100 mg capsule 100 mg PO DAILY 30 days #30 caps 07/31/22 (Colace) [id number]-[id number] 1 cap PO QID #120 caps 07/31/22 24,000-76,000-120,000 unit capsule,delayed rel (Creon) omeprazole 40 mg capsule,delayed 40 mg PO QAM #90 caps 07/31/22 release sennosides 8.6 mg capsule (senna) 17.2 mg PO BEDTIME constipation 30 07/31/22 days #60 caps Allergies Allergy/AdvReac Type Severity Reaction Status Date / Time Penicillins [PENICILLINS] Allergy Severe THROAT Verified 07/31/22 09:07 CLOSES/HIVES [facility]LY [facility] Past Medical History Medical History Diverticulitis GERD (gastroesophageal reflux disease) Hyperlipidemia Surgical History History of esophagogastroduodenoscopy (EGD) Hx of colonoscopy Hx of foot surgery Hx of laminectomy Hx of tubal ligation Family History Family History Family/Other No problems noted. Social History Social History Alcohol intake: never Patient Tobacco Use Status: Never used Tobacco Smoked in Last 30 Days: No Use of substances other than those prescribed or required for medical reasons: No Advance Directives: No Physical Exam ED Vital Signs: Vital Signs - 24 hr 10/27/22 08:27 10/27/22 08:54 10/27/22 10:00 Temperature 97.7 F 97.9 F Pulse Rate 95 93 86 Respiratory Rate 16 18 18 Blood Pressure 142/75 H 150/61 H 140/57 H Pulse Oximetry 98 99 100 Oxygen Delivery Method Room Air Room Air Room Air BMI result Body Mass Index 25.4 Const General: cooperative and healthy appearing Orientation/consciousness: patient oriented x3 HENMT Head: Yes normal to inspection General nose exam: Normal external nose present Face and sinus: Yes normal facial exam Mouth: Normal oral and palatal mucosa present Throat: Yes posterior oropharynx normal Neck Neck: Yes normal visual inspection Chest Chest palpation & inspection: normal inspection of the chest Resp Effort & Inspection: normal respiratory effort Auscultation: clear to auscultation bilaterally Cardio Rate: regular rate Rhythm: regular rhythm GI Inspection: Yes normal to inspection Palpation (GI): Soft to palpation Rectal Exam - Female: visual inspection normal, normal sphincter tone and No Abnormal stool present Neuro General: patient oriented x3 Course Reevaluation(s) Reevaluation #1: Remained hemodynamically stable will proceed with admission and transfusion Time: 11:15 Medical Decision Making Medical Decision Making MDM Narrative: Patient presented with anemia low H&H negative stool for blood, hemoglobin 6.1, the anemia is microcytic and hypochromic most likely consistent with iron deficiency anemia. Differential Diagnosis Differential Diagnoses: The differential diagnosis associated with the presentation includes GI loss/iron deficiency Admission/Observation Consideration of admission/observation: Escalation of care including admission/observation considered Consult Healthcare Provider Management of the patient was discussed with: Hospitalist Lab Data [facility] Lab Attestation statement: I reviewed the patient's lab results. 10/27/22 10:23 10/27/22 10:23 Labs: Lab Results 10/27/22 10/27/22 10/27/22 Range/Units 09:45 10:23 10:23 WBC 8.7 (4.8-10.8) X10*3/uL RBC 3.76 L (4.20-5.50) X10*6/uL Hgb 6.1 L* (12.0-16.0) g/dl Hct 21.3 L (37.0-47.0) % MCV 56.6 L (80.0-98.0) fL MCH 16.2 L (27.0-33.0) pg MCHC 28.6 L (31.0-35.0) g/dl RDW 19.5 H (11.0-16.0) % Plt Count 426 H (160-400) X10*3/uL MPV 10.0 (9.4-12.3) fL Immature Gran % (Auto) 0.5 H (0.0-0.4) % Neut % (Auto) 61.3 (45-73) % Lymph % (Auto) 22.4 (20-40) % [place] % (Auto) 12.3 H (2-11) % Eos % (Auto) 2.5 (0-4) % Baso % (Auto) 1.0 (0-2) % Lymph # (Auto) 1.9 (1.2-4.9) X10*3/uL [place] # (Auto) 1.1 (0.1-1.2) X10*3/uL Eos # (Auto) 0.2 (0.0-0.4) X10*3/uL Baso # (Auto) 0.1 (0.0-0.2) X10*3/uL Abs Immat Gran (auto) 0.04 H (0.00-0.03) X10*3/uL Absolute Neuts (auto) 5.3 (2.0-8.3) x10*3/uL Absolute Nucleated RBC 0.000 (0.0-0.012) X10*3/uL Nucleated RBC % (auto) 0.0 (0.0-0.2) /100WBC PT (10.0-13.1) SEC INR (0.9-1.1) APTT (26.0-36.4) SEC Sodium 140 (135-145) mmol/L Potassium 4.0 (3.3-5.1) mmol/L Chloride 110 H (96-108) mmol/L Carbon Dioxide 18 L (22-29) mmol/L Anion Gap 16 (12-20) BUN 11 (9-16) mg/dL Creatinine 0.76 (0.5-1.4) mg/dL Estim Creat Clear Calc 53.0 Estimated GFR > 60 Random Glucose 105 (60-115) mg/dL Calcium 9.2 (8.4-10.2) mg/dL Total Bilirubin 0.5 (0.0-1.0) mg/dL AST 28 (5-31) U/L ALT 20 (0-31) U/L Alkaline Phosphatase 98 (39-117) U/L Total Protein 7.8 (6.5-8.0) g/dL Albumin 4.1 (3.5-5.0) g/dL Stool Occult Blood NEGATIVE (NEGATIVE) Blood Type Antibody Screen Crossmatch 10/27/22 10/27/22 Range/Units 10:23 10:23 WBC (4.8-10.8) X10*3/uL RBC (4.20-5.50) X10*6/uL Hgb (12.0-16.0) g/dl Hct (37.0-47.0) % MCV (80.0-98.0) fL MCH (27.0-33.0) pg MCHC (31.0-35.0) g/dl RDW (11.0-16.0) % Plt Count (160-400) X10*3/uL MPV (9.4-12.3) fL Immature Gran % (Auto) (0.0-0.4) % Neut % (Auto) (45-73) % Lymph % (Auto) (20-40) % [place] % (Auto) (2-11) % Eos % (Auto) (0-4) % Baso % (Auto) (0-2) % Lymph # (Auto) (1.2-4.9) X10*3/uL [place] # (Auto) (0.1-1.2) X10*3/uL Eos # (Auto) (0.0-0.4) X10*3/uL Baso # (Auto) (0.0-0.2) X10*3/uL Abs Immat Gran (auto) (0.00-0.03) X10*3/uL Absolute Neuts (auto) (2.0-8.3) x10*3/uL Absolute Nucleated RBC (0.0-0.012) X10*3/uL Nucleated RBC % (auto) (0.0-0.2) /100WBC PT 12.0 (10.0-13.1) SEC INR 1.0 (0.9-1.1) APTT 26.7 (26.0-36.4) SEC Sodium (135-145) mmol/L Potassium (3.3-5.1) mmol/L Chloride (96-108) mmol/L Carbon Dioxide (22-29) mmol/L Anion Gap (12-20) BUN (9-16) mg/dL Creatinine (0.5-1.4) mg/dL Estim Creat Clear Calc Estimated GFR Random Glucose (60-115) mg/dL Calcium (8.4-10.2) mg/dL Total Bilirubin (0.0-1.0) mg/dL AST (5-31) U/L ALT (0-31) U/L Alkaline Phosphatase (39-117) U/L Total Protein (6.5-8.0) g/dL Albumin (3.5-5.0) g/dL Stool Occult Blood (NEGATIVE) Blood Type A Positive Antibody Screen NEGATIVE Crossmatch See Detail Independent Historian daughter External Record Review External record reviewed: Inpatient record Discharge Plan Discharge Clinical Impression: Anemia Patient Disposition: Admitted As Inpatient
[2022-10-27 10:03] LABS: OBS Int Ctl Valid YES; OBS1 NEGATIVE (NEGATIVE)
--- NOTE | 2022-10-27 10:14 | PC.NURSE ---
this nurse assisted provider while doing rectal exam sample obtained to sent to lab
--- NOTE | 2022-10-27 10:26 | PC.NURSE ---
pt aox3, burmese speaking. reports for recheck after labs drawn yesterday indicated low hgb. labs drawn. call bates within reach, will cont to latesha.
[2022-10-27 10:27] LABS: MANUAL DIFF FLAG NO
[2022-10-27 10:29] LABS: Lymphocytes Percent Auto 22.4 % (20-40)
[2022-10-27 10:33] LABS: Basophils Absolute Auto 0.1 X10*3/uL (0.0-0.2); Eosinophils Absolute Auto 0.2 X10*3/uL (0.0-0.4); Eosinophils Percent Auto 2.5 % (0-4); Hematocrit 21.3 % (37.0-47.0); Imm Gran Abs Auto 0.04 X10*3/uL (0.00-0.03); Imm Gran Pct Auto 0.5 % (0.0-0.4); Lymphocytes Absolute Auto 1.9 X10*3/uL (1.2-4.9); Mean Corpuscular HGB Conc 28.6 g/dl (31.0-35.0); Mean Corpuscular Hemoglobin 16.2 pg (27.0-33.0); Monocytes Absolute Auto 1.1 X10*3/uL (0.1-1.2); Monocytes Percent Auto 12.3 % (2-11); Neutrophils Absolute Auto 5.3 x10*3/uL (2.0-8.3); Neutrophils Percent Auto 61.3 % (45-73); Platelet Count 426 X10*3/uL (160-400); Red Blood Count 3.76 X10*6/uL (4.20-5.50); Red Cell Distribution Width 19.5 % (11.0-16.0); White Blood Count 8.7 X10*3/uL (4.8-10.8)
[2022-10-27 10:34] LABS: Mean Corpuscular Volume 56.6 fL (80.0-98.0)
[2022-10-27 10:37] LABS: Hemoglobin 6.1 g/dl (12.0-16.0)
[2022-10-27 10:44] LABS: Partial Thromboplastin Time 26.7 SEC (26.0-36.4)
[2022-10-27 11:04] LABS: Alanine Aminotransferase 20 U/L (0-31); Albumin Level 4.1 g/dL (3.5-5.0); Alkaline Phosphatase 98 U/L (39-117); Anion Gap 16 (12-20); Aspartate Amino Transferase 28 U/L (5-31); Bilirubin Total 0.5 mg/dL (0.0-1.0); Blood Urea Nitrogen 11 mg/dL (9-16); Calcium 9.2 mg/dL (8.4-10.2); Carbon Dioxide 18 mmol/L (22-29); Chloride 110 mmol/L (96-108); Estimated Glomerular Filt Rate > 60; Glucose Random 105 mg/dL (60-115); Sodium 140 mmol/L (135-145); Total Protein 7.8 g/dL (6.5-8.0)
[2022-10-27 12:08] LABS: COVID-19 Test Negative (Negative); IDNOW Serial# BCCEAD1C
--- NOTE | 2022-10-27 12:11 | PC.NURSE ---
IV inserted. blood transfusion consent signed. Vitals stable.
--- NOTE | 2022-10-27 12:24 | PM.IMHP ---
History of Present Illness Date of Service: 10/27/22 Attending physician on admission: Isauro Pratt Chief Complaint: Abnormal labs/anemia This is a 72 year old female with history of gerd who was sent to the ED after routine lab work revealed anemia. Patient was seen in follow-up by her PCP earlier in the week who ordered routine lab work. She was call last evening and told that she had anemia and she should present herself to the emergency department. H/H was noted to be 6.1/21.3. She denies any rectal or vaginal bleeding. She denies any changes in stool color or caliber. She denies recent weight loss. She denies use of alcohol and rarely uses Aleve for mild pain. Her last colonoscopy was in September of 2019 which showed focal AVMs of ascending colon, internal hemorrhoids. Does have history of tubular adenoma. EGD done 2018 with small hiatal hernia, early shcatzki's ring. She has no previous history of anemia and has never taken iron replacement. For the past one month she reports generalized fatigue and some dyspnea with exertion. He does report some mild, intermittent epigastric abdominal pain. Stool occult from ED was negative. Review of Systems Review of Systems: Yes all other systems are reviewed and are negative Constitutional: Constitutional: Denies chills and Denies fever(s) ENT: Denies dizziness Cardiovascular: Cardiovascular: Denies chest pain and Denies dyspnea Respiratory: Respiratory: Denies dyspnea Gastrointestinal: Gastrointestinal: Denies melena, Denies change in stool character, Denies coffee ground emesis, Reports constipation, Denies nausea and Denies vomiting Neurologic: Denies dizziness [facility] Medical History (Updated 10/27/22 @ 12:31 by LAST Metz) Adenomyomatosis of gallbladder Constipation Diverticulitis GERD (gastroesophageal reflux disease) Hyperlipidemia IBS (irritable bowel syndrome) Tubular adenoma of colon Family History Family/Other No problems noted. Pertinent family history: denies history of bleeding or clotting disorders Surgical History History of esophagogastroduodenoscopy (EGD) Hx of colonoscopy Hx of foot surgery Hx of laminectomy Hx of tubal ligation Social History Alcohol intake: never Patient Tobacco Use Status: Never used Tobacco Smoked in Last 30 Days: No Use of substances other than those prescribed or required for medical reasons: No Advance Directives: No Meds Allergies Allergy/AdvReac Type Severity Reaction Status Date / Time Penicillins [PENICILLINS] Allergy Severe THROAT Verified 07/31/22 09:07 CLOSES/HIVES Active Medications: Current Medications Acetaminophen (Acetaminophen 325 Mg Tablet) 650 mg PO Q6H PRN PRN Reason: Pain, Mild (Pain Scale 1-3) Docusate Sodium (Docusate Sodium 100 Mg Capsule) 100 mg PO DAILY PRN PRN Reason: Constipation Pharmacy Consult (Consult Rx Perform Med Rec) 1 each MISCELLANE ONCE PRN PRN Reason: Consult order Sodium Chloride (0.9 % Sodium Chloride Flush 3 Ml Syringe) [facility] Medications Medication Instructions Recorded Confirmed Last Taken Type acetaminophen 500 mg tablet 500 mg PO Q6H PRN Pain 10/03/20 10/27/22 10/26/22 History (Tylenol Extra Strength) atorvastatin 40 mg tablet 40 mg PO BEDTIME 10/03/20 10/27/22 10/26/22 History quetiapine 25 mg tablet 12.5 mg PO BEDTIME 10/03/20 10/27/22 10/26/22 History fluticasone propionate 50 1 spray intranasal DAILY 10/13/20 10/27/22 10/26/22 History mcg/actuation nasal spray,suspension calcium carbonate 600 mg-vitamin 1 tab PO DAILY 06/19/22 10/27/22 10/26/22 History D3 5 mcg (200 unit) tablet omeprazole 40 mg capsule,delayed 40 mg PO DAILY@0630 10/27/22 10/27/22 10/27/22 History release Physical Exam Vital Signs and Narrative: Vital Signs: Last Vital Signs Temp 97.8 F 10/27/22 12:00 Pulse 77 10/27/22 12:00 Resp 20 10/27/22 12:00 BP 138/61 10/27/22 12:00 Pulse Ox 100 10/27/22 12:00 O2 Del Method Room Air 10/27/22 12:00 BMI result Body Mass Index 25.4 Const: General: cooperative, comfortable, no acute distress, alert and awake Nutritional Appearance: average body habitus Resp: Effort & Inspection: normal respiratory effort and able to speak in complete sentences Auscultation: clear to auscultation bilaterally Cardio: Rate: regular rate Heart sounds: S1 normal heart sound present and S2 normal heart sound present GI: Inspection: No distended Palpation (GI): Soft to palpation and nontender Neuro: General: CN's II-XI intact bilaterally Extrem: General: Yes no pedal edema Results Labs 10/27/22 10:23 10/27/22 10:23 Labs: Laboratory Results - last 24 hr 10/27/22 10/27/22 10/27/22 09:45 10:23 10:23 MCV 56.6 L MCH 16.2 L MCHC 28.6 L RDW 19.5 H Plt Count 426 H MPV 10.0 Immature Gran % (Auto) 0.5 H Neut % (Auto) 61.3 Lymph % (Auto) 22.4 [place] % (Auto) 12.3 H Eos % (Auto) 2.5 Baso % (Auto) 1.0 Lymph # (Auto) 1.9 [place] # (Auto) 1.1 Eos # (Auto) 0.2 Baso # (Auto) 0.1 Abs Immat Gran (auto) 0.04 H Absolute Neuts (auto) 5.3 Absolute Nucleated RBC 0.000 Nucleated RBC % (auto) 0.0 PT INR APTT Anion Gap 16 Estim Creat Clear Calc 53.0 Estimated GFR > 60 Random Glucose 105 Calcium 9.2 Total Bilirubin 0.5 AST 28 ALT 20 Alkaline Phosphatase 98 Total Protein 7.8 Albumin 4.1 Stool Occult Blood NEGATIVE COVID-19 (JADE) COVID-19 Clin Com Blood Type Antibody Screen Crossmatch 10/27/22 10/27/22 10/27/22 10:23 10:23 11:52 MCV MCH MCHC RDW Plt Count MPV Immature Gran % (Auto) Neut % (Auto) Lymph % (Auto) [place] % (Auto) Eos % (Auto) Baso % (Auto) Lymph # (Auto) [place] # (Auto) Eos # (Auto) Baso # (Auto) Abs Immat Gran (auto) Absolute Neuts (auto) Absolute Nucleated RBC Nucleated RBC % (auto) PT 12.0 INR 1.0 APTT 26.7 Anion Gap Estim Creat Clear Calc Estimated GFR Random Glucose Calcium Total Bilirubin AST ALT Alkaline Phosphatase Total Protein Albumin Stool Occult Blood COVID-19 (JADE) Negative COVID-19 Clin Com See Note Blood Type A Positive Antibody Screen NEGATIVE Crossmatch See Detail Assessment and Plan (1) Anemia: Status: Acute Plan This is a 72-year-old Qatari-speaking female who was sent to the emergency department after routine lab work revealed anemia Symptomatic microcytic anemia no recent baseline for comparison h/o AVMs - last colonoscopy 2019 will check iron studies, b12, folate, LDH stool occult done in ED negative CT abdomen to eval for possible source of bleeding 1U RBC ordered in ED follow CBC GI eval gerd continue omeprazole chronic constipation continue colace, senna HLD continue statin h/o IBS follows [facility] continue creon dvt ppx - mechanical devices HCP - sonyen Castillo Code status - full code Attending-Dr. García Patient requires 2 midnight stay in the hospital for further workup associated with symptomatic anemia Time Spent With Patient Time: Total time managing care of this patient today ____ minutes. Quality Stroke Does the patient have a stroke diagnosis?: No VTE Prior VTE?: No VTE Risk Level:: Medical - moderate - high VTE Device Contraindication: N/A - Device Ordered VTE Drug Contraindication: Treatment Not Indicated
[2022-10-27 12:39] LABS: Iron 12 mcg/dL (30-160); Lactate Dehydrogenase 192 U/L (122-220); Percent Iron Saturation 3 % (15-50); Total Iron Binding Capacity 403 mcg/dL (228-428); Unsaturated Iron Binding 391 ug/dL
--- NOTE | 2022-10-27 12:54 | PC.NURSE ---
transfusion started per [facility]. vitals stable. will continue to monitor.
--- NOTE | 2022-10-27 13:23 | PHA.MEDREC ---
Pharmacy Consult ? Medication Reconciliation Pharmacy has completed the medication reconciliation. Utilized automotive collision repair instructor services. Confirmed meds with patient, son at bedside had photo of med list as well.
--- NOTE | 2022-10-27 13:36 | PM.GICN ---
History of Present Illness Data of Consult Service Date: 10/27/22 Requesting physician: Jess Sandhu Primary Care Provider: Aster Valle NP HPI Reason for consult: Iron deficiency anemia 72 YF with GERD sent to [facility] ED after routine lab work revealed anemia.? Patient was by her PCP earlier in the week and routine lab work was ordered.? She was called yesterday evening and advised to go to the ER since H/H was noted to be 6.1/21.3.? History obtained with the help of patient's daughter who was at the bedside Pt has noted worsening fatigue with shortness of breath on exertion for the past 3 months. She complains of intermittent periumbilical pain and was prescribed Creon by her instructor extension work (Chayo Yo NP). Pt takes Omeprazole 40 mg daily for GERD and denies dysphagia symptoms. Pt denies recent change in bowel habits, black stools, rectal or vaginal bleeding, changes in stool color or caliber or weight loss.? She admits to chronic constipation and takes a stool softener and senna. Patient quitted smoking several years ago and denies EtOH use. She rarely uses Aleve for mild hip pain.? She has no previous history of anemia and has never taken iron replacement.? Patient denies major cardiac or pulmonary problems. Patient reports she is unable to breathe when sleeping on her back so on her side. Patient is single and lives independently by herself. She has 3 children Her son helps with grocery shopping and drives her to her appointments. One of her sons, Luciano, works in housekeeping at [facility] Stool occult from ED was negative. ENDOSCOPIC STUDIES: September of 2019 colonoscopy was performed by Dr. Dixon and showed focal AVMs in the cecum and ascending colon, melanosis coli and 1+ internal hemorrhoids Of note pt has a history of tubular adenomas removed during colonoscopies in 2008 and 2014.? 2017 EGD was performed by Dr. Dixon and showed a small hiatal hernia, early schatzki's ring. IMAGING STUDIES: 10/[address] SCAN SHOWED: LIVER, GALLBLADDER, AND BILIARY TREE: The liver is normal in size, shape, and attenuation. No focal hepatic lesion or biliary ductal dilatation is present. Again seen is a nodular mass arising from the fundus of the gallbladder. Further workup with ultrasound is recommended as mentioned previously.? KIDNEYS AND URETERS: The kidneys are normal in size, shape, and attenuation. A tiny right renal cyst is present. No solid masses are seen. No hydronephrosis, hydroureter, or calculi seen. No perinephric stranding. ? GASTROINTESTINAL TRACT: A small hiatal hernia is present. Of note, in the mid sigmoid there is an area of inflammatory change with wall thickening and pericolonic inflammatory change. There is one area where there appears to be a small 9 mm fluid collection in the lateral of the colon. These are new findings when compared to the 10/02/2020 study and are consistent with acute diverticulitis. The small and large bowel are otherwise unremarkable. The appendix is unremarkable.? 10/2020 ABD US SHOWED: Likely adenomyomatosis with echogenic wall calcification. 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 ? Visualized pancreas, liver, CBD, and right kidney are unremarkable. Review of Systems Review of Systems: Yes all other systems are reviewed and are negative Constitutional: Constitutional: Denies chills and Denies fever(s) ENT: Denies dizziness Cardiovascular: Cardiovascular: Denies chest pain and Denies dyspnea Respiratory: Respiratory: Denies dyspnea Gastrointestinal: Gastrointestinal: Denies melena, Denies change in stool character, Denies coffee ground emesis, Reports constipation, Denies nausea and Denies vomiting Neurologic: Denies dizziness [facility] Past Medical History Medical History (Updated 10/28/22 @ 17:11 by Abbey Underwood MD) Adenomyomatosis of gallbladder Constipation Diverticulitis GERD (gastroesophageal reflux disease) Hyperlipidemia IBS (irritable bowel syndrome) Tubular adenoma of colon Family History Family History Family/Other No problems noted. Surgical History Surgical History History of esophagogastroduodenoscopy (EGD) Hx of colonoscopy Hx of foot surgery Hx of laminectomy Hx of tubal ligation Social History Social History Household Members: None Housing: Apartment Do you presently have visiting nurse or other home services: Yes Alcohol intake: never Patient Tobacco Use Status: Never used Tobacco service: No Current occupational status: retired [employer] Allergies Allergy/AdvReac Type Severity Reaction Status Date / Time Penicillins [PENICILLINS] Allergy Severe THROAT Verified 07/31/22 09:07 CLOSES/HIVES Active Medications: Current Medications Acetaminophen (Acetaminophen 325 Mg Tablet) 650 mg PO Q6H PRN PRN Reason: Pain, Mild (Pain Scale 1-3) Lipase/Protease/Amylase (Lipase/Prot/Amylase 24/76/120k 1 Cap Capsule.) 1 cap PO QID [facility] Atorvastatin Calcium (Atorvastatin Calcium 40 Mg Tablet) 40 mg PO BEDTIME [facility] Docusate Sodium (Docusate Sodium 100 Mg Capsule) 100 mg PO DAILY [facility] Fluticasone Propionate (Fluticasone Propionate Nasal 16 Gm [place]) 1 spray NOSTRIL-B DAILY [facility] Non-Formulary Medication (Sennosides [Senna]) 17.2 mg PO BEDTIME [facility] Omeprazole (Omeprazole 40 Mg Capsule.) 40 mg PO DAILY@0630 [facility] Pharmacy Consult (Consult Rx Perform Med Rec) 1 each MISCELLANE ONCE PRN PRN Reason: Consult order Quetiapine Fumarate (Quetiapine Fumarate 25 Mg Tablet) 12.5 mg PO BEDTIME [facility] Sodium Chloride (0.9 % Sodium Chloride Flush 3 Ml Syringe) 3 ml IVFLUSH QSHIFT [facility] Home Medications Medication Instructions Recorded Confirmed Last Taken Type acetaminophen 500 mg tablet 500 mg PO Q6H PRN Pain 10/03/20 10/27/22 10/26/22 History (Tylenol Extra Strength) atorvastatin 40 mg tablet 40 mg PO BEDTIME 10/03/20 10/27/22 10/26/22 History quetiapine 25 mg tablet 12.5 mg PO BEDTIME 10/03/20 10/27/22 10/26/22 History fluticasone propionate 50 1 spray intranasal DAILY 10/13/20 10/27/22 10/26/22 History mcg/actuation nasal spray,suspension calcium carbonate 600 mg-vitamin 1 tab PO DAILY 06/19/22 10/27/22 10/26/22 History D3 5 mcg (200 unit) tablet omeprazole 40 mg capsule,delayed 40 mg PO DAILY@0630 10/27/22 10/27/22 10/27/22 History release Physical Exam Vital Signs: Vital Signs: Last Vital Signs Temp 98.3 F 10/27/22 12:52 Pulse 81 10/27/22 12:52 Resp 20 10/27/22 12:52 BP 124/64 10/27/22 12:52 Pulse Ox 100 10/27/22 12:00 O2 Del Method Room Air 10/27/22 12:00 BMI result Body Mass Index 25.4 Const: General: healthy appearing and no acute distress Nutritional Appearance: overweight Orientation/consciousness: patient oriented x3 Limitations: language barrier HEENT: Head: Yes normal to inspection Ears: hearing grossly normal bilaterally Eyes: Sclerae: sclerae normal Pupils: Equal, round and reactive pupils present Neck: Neck: Yes normal visual inspection Chest: Chest palpation & inspection: normal inspection of the chest Resp: Effort & Inspection: normal respiratory effort Auscultation: clear to auscultation bilaterally Cardio: Palpation: normal PMI Rate: regular rate Rhythm: regular rhythm Heart sounds: S1 normal heart sound present, S2 normal heart sound present and no murmurs GI: Palpation (GI): Soft to palpation, nontender and No hepatosplenomegaly present Auscultation: normal bowel sounds Rectal Exam - Female: deferred Skin: General skin exam: no rashes or lesions noted Neuro: General: patient oriented x3, gait normal and moves all extremities Cranial nerves: Yes Equal, round and reactive pupils present Psych: Appearance: grossly normal Mental Status: mental status grossly normal Results Labs 10/27/22 10:23 10/27/22 10:23 Labs: Short CBC 10/27/22 Range/Units 10:23 WBC 8.7 (4.8-10.8) X10*3/uL Hgb 6.1 L* (12.0-16.0) g/dl Hct 21.3 L (37.0-47.0) % Plt Count 426 H (160-400) X10*3/uL BMP 10/27/22 10:23 Sodium 140 Potassium 4.0 Chloride 110 H Carbon Dioxide 18 L BUN 11 Creatinine 0.76 Calcium 9.2 Liver Function 10/27/22 Range/Units 10:23 Total Bilirubin 0.5 (0.0-1.0) mg/dL AST 28 (5-31) U/L ALT 20 (0-31) U/L Alkaline Phosphatase 98 (39-117) U/L Albumin 4.1 (3.5-5.0) g/dL Assessment and Plan (1) Anemia: Status: Acute (2) GERD (gastroesophageal reflux disease): Status: Acute (3) Chronic constipation: Status: Acute Plan 72 YF with GERD sent to [facility] ED after routine lab work revealed severe iron def anemia.? Patient was by her PCP earlier in the week and routine lab work was ordered.? She was called yesterday evening and advised to go to the ER since H/H was noted to be 6.1/21.3.? Pt has noted worsening fatigue with shortness of breath on exertion for the past 3 months. Pt denies overt bleeding and Stool occult from ED was negative yesterday and positive today on repeat testing. PEDRO PABLO is likely due to Upper (PUD, erosive esophagitis or gastritis, AVMs) or LGI source (colon polyp, or possble slow blood loss from AVMs seen on past colonoscopy). September of 2019 colonoscopy was performed by Dr. Dixon and showed focal AVMs in the cecum and ascending colon, melanosis coli and 1+ internal hemorrhoids Of note pt has a history of tubular adenomas removed during colonoscopies in 2008 and 2014.? 2018 EGD was performed by Dr. Dixon and showed a small hiatal hernia, early schatzki's ring. RECOMMENDATIONS 1. Transfuse 1 more Unit of PRBC and monitor CBC daily 2. Continue omeprazole p.o. daily. 3. Colonoscopy prep today for EGD and colon on 10/29/2022. Both procedures and potential complications including bleeding, perforation, reaction to anesthetic and aspiration were reviewed with the patient and her daughter. Time Spent With Patient Time: Total time managing care of this patient today ____ minutes. Procedures Date of Service Date of Service: 10/27/22
[2022-10-27 13:57] LABS: Ferritin < 2 ng/mL (10-250); Folate 14.4 ng/mL (> or = 4.0); Vitamin B12 534 pg/mL (200-900)
--- NOTE | 2022-10-27 14:57 | MHC.CM.PN ---
CM met with Patient and her Son/HCP at bedside and addressed IMM with them, providing them with the original and placing a copy on the chart. 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 CM has initiated and will follow for dc planning. Patient is Kofi watson and her PCP is Dr. Aster Valle.
[2022-10-27] MEDS: Lipase/Prot/Amylase 24/76/120K 1 CAP CAPSULE.DR PO (18:22)
[2022-10-27] MEDS: 0.9 % Sodium Chloride Flush 3 ML SYRINGE IVFLUSH ×2 (18:22→20:52)
[2022-10-27] MEDS: QUEtiapine Fumarate 25 MG TABLET 12.5 MG PO (20:51)
[2022-10-27] MEDS: Sennosides 8.6 MG TABLET 17.2 MG PO (20:51)
[2022-10-27] MEDS: Atorvastatin Calcium 40 MG TABLET PO (20:51)
[2022-10-28] VITALS (7 sets, daily range): BP systolic 132–149; BP diastolic 59–74; PULSE 79–94; RESP 16–18; TEMP 36.6–37; O2SAT 98–99
[2022-10-28 04:27] LABS: OBS Int Ctl Valid YES; OBS1 POSITIVE (NEGATIVE)
[2022-10-28] MEDS: Omeprazole 40 MG CAPSULE.DR PO (05:52)
[2022-10-28 05:55] LABS: Hematocrit 24.5 % (37.0-47.0); Hemoglobin 7.1 g/dl (12.0-16.0); Mean Corpuscular Hemoglobin 17.4 pg (27.0-33.0); Mean Corpuscular Volume 60.2 fL (80.0-98.0); Mean Platelet Volume 10.2 fL (9.4-12.3); NRBC Pct Auto 0.5 /100WBC (0.0-0.2); Platelet Count 379 X10*3/uL (160-400); Red Blood Count 4.07 X10*6/uL (4.20-5.50); White Blood Count 11.4 X10*3/uL (4.8-10.8)
--- NOTE | 2022-10-28 06:18 | PC.NURSE ---
Pt transferred to unit at beginning of the shift. Belongings list completed. VSS. Pt slept comfortably throughout night with no c/o dizziness/weakness/comfort. Pt ambulates independently with a steady gait. Will continue to monitor.
[2022-10-28] MEDS: Lipase/Prot/Amylase 24/76/120K 1 CAP CAPSULE.DR PO ×4 (08:38→20:21)
[2022-10-28] MEDS: Docusate Sodium 100 MG CAPSULE PO (08:38)
[2022-10-28] MEDS: 0.9 % Sodium Chloride Flush 3 ML SYRINGE IVFLUSH ×3 (08:39→20:24)
--- NOTE | 2022-10-28 08:56 | HO.PM.IMPN ---
Subjective Subjective Date of Service: 10/28/22 Physical Exam Vital Signs: Vital Signs: Last Vital Signs Temp 98.3 F 10/28/22 07:18 Pulse 86 10/28/22 07:18 Resp 16 10/28/22 07:18 BP 148/67 H 10/28/22 07:18 Pulse Ox 98 10/28/22 07:18 O2 Del Method Room Air 10/28/22 07:18 BMI result Body Mass Index 26.1 Objective Data Active Medications Acetaminophen (Acetaminophen 325 Mg Tablet) 650 mg PO Q6H PRN PRN Reason: Pain, Mild (Pain Scale 1-3) Lipase/Protease/Amylase (Lipase/Prot/Amylase 24/76/120k 1 Cap Capsule.) 1 cap PO QID [facility] Last Admin: 10/28/22 08:38 Dose: 1 cap Documented By: STACY Atorvastatin Calcium (Atorvastatin Calcium 40 Mg Tablet) 40 mg PO BEDTIME [facility] Last Admin: 10/27/22 20:51 Dose: 40 mg Documented By: ADMARIS Docusate Sodium (Docusate Sodium 100 Mg Capsule) 100 mg PO DAILY [facility] Last Admin: 10/28/22 08:38 Dose: 100 mg Documented By: STACY Fluticasone Propionate (Fluticasone Propionate Nasal 16 Gm [place]) 1 spray NOSTRIL-B DAILY [facility] Last Admin: 10/28/22 08:33 Dose: Not Given Documented By: STACY Non-Admin Reason: Med Not Available Omeprazole (Omeprazole 40 Mg Capsule.) 40 mg PO DAILY@0630 [facility] Last Admin: 10/28/22 05:52 Dose: 40 mg Documented By: DAMARIS Pharmacy Consult (Consult Rx Perform Med Rec) 1 each MISCELLANE ONCE PRN PRN Reason: Consult order Quetiapine Fumarate (Quetiapine Fumarate 25 Mg Tablet) 12.5 mg PO BEDTIME [facility] Last Admin: 10/27/22 20:51 Dose: 12.5 mg Documented By: DAMARIS Senna (Sennosides 8.6 Mg Tablet) 17.2 mg PO BEDTIME [facility] Last Admin: 10/27/22 20:51 Dose: 17.2 mg Documented By: DAMARIS Sodium Chloride (0.9 % Sodium Chloride Flush 3 Ml Syringe) 3 ml IVFLUSH QSHIFT [facility] Last Admin: 10/28/22 08:39 Dose: 3 ml Documented By: URBANOEMA Labs 10/28/22 05:11 10/27/22 10:23 Labs: Laboratory Results - last 24 hr 10/27/22 10/27/22 10/27/22 09:45 10:23 10:23 MCV 56.6 L MCH 16.2 L MCHC 28.6 L RDW 19.5 H Plt Count 426 H MPV 10.0 Immature Gran % (Auto) 0.5 H Neut % (Auto) 61.3 Lymph % (Auto) 22.4 [place] % (Auto) 12.3 H Eos % (Auto) 2.5 Baso % (Auto) 1.0 Lymph # (Auto) 1.9 [place] # (Auto) 1.1 Eos # (Auto) 0.2 Baso # (Auto) 0.1 Abs Immat Gran (auto) 0.04 H Absolute Neuts (auto) 5.3 Absolute Nucleated RBC 0.000 Nucleated RBC % (auto) 0.0 PT INR APTT Anion Gap 16 Estim Creat Clear Calc 53.0 Estimated GFR > 60 Random Glucose 105 Calcium 9.2 Iron 12 L TIBC 403 % Saturation 3 L Unsat Iron Binding 391 Ferritin < 2 L Total Bilirubin 0.5 AST 28 ALT 20 Alkaline Phosphatase 98 Lactate Dehydrogenase 192 Total Protein 7.8 Albumin 4.1 Vitamin B12 534 Folate 14.4 Stool Occult Blood NEGATIVE COVID-19 (JADE) COVID-[facility] Clin Com Blood Type Antibody Screen Crossmatch 10/27/22 10/27/22 10/27/22 10:23 10:23 11:52 MCV MCH MCHC RDW Plt Count MPV Immature Gran % (Auto) Neut % (Auto) Lymph % (Auto) [place] % (Auto) Eos % (Auto) Baso % (Auto) Lymph # (Auto) [place] # (Auto) Eos # (Auto) Baso # (Auto) Abs Immat Gran (auto) Absolute Neuts (auto) Absolute Nucleated RBC Nucleated RBC % (auto) PT 12.0 INR 1.0 APTT 26.7 Anion Gap Estim Creat Clear Calc Estimated GFR Random Glucose Calcium Iron TIBC % Saturation Unsat Iron Binding Ferritin Total Bilirubin AST ALT Alkaline Phosphatase Lactate Dehydrogenase Total Protein Albumin Vitamin B12 Folate Stool Occult Blood COVID-19 (JADE) Negative COVID-19 Clin Com See Note Blood Type A Positive Antibody Screen NEGATIVE Crossmatch See Detail 10/28/22 10/28/22 04:01 05:11 MCV 60.2 L MCH 17.4 L MCHC 29.0 L RDW 22.0 H Plt Count 379 MPV 10.2 Immature Gran % (Auto) Neut % (Auto) Lymph % (Auto) [place] % (Auto) Eos % (Auto) Baso % (Auto) Lymph # (Auto) [place] # (Auto) Eos # (Auto) Baso # (Auto) Abs Immat Gran (auto) Absolute Neuts (auto) Absolute Nucleated RBC 0.060 H Nucleated RBC % (auto) 0.5 H PT INR APTT Anion Gap Estim Creat Clear Calc Estimated GFR Random Glucose Calcium Iron TIBC % Saturation Unsat Iron Binding Ferritin Total Bilirubin AST ALT Alkaline Phosphatase Lactate Dehydrogenase Total Protein Albumin Vitamin B12 Folate Stool Occult Blood POSITIVE COVID-19 (JADE) COVID-19 Clin Com Blood Type Antibody Screen Crossmatch Assessment and Plan (1) Anemia: Status: Acute Plan This is a 72-year-old Burkinan-speaking female who was sent to the emergency department after routine lab work revealed anemia Symptomatic microcytic Iron deficiency anemia, +occult blood Acute and chronic blood loss anemia no recent baseline for comparison h/o AVMs - last colonoscopy 2019 iron 12, nl folate and B12 CT abdomen --no source of bleed s/p 1U RBC ordered in ED, H/H is better follow CBC GI to perform EGD/Colonoscopy 10/29 GERD continue omeprazole chronic constipation continue colace, senna HLD continue statin h/o IBS follows with [facility] [place] GI continue creon dvt ppx - mechanical devices HCP - son's Monica Castillo Code status - full code Need for inpatient: severe anemia, awaiting EGD and colonoscopy Time Spent With Patient Time: Total time managing care of this patient today ____ minutes. Quality Stroke Does the patient have a stroke diagnosis?: No VTE Prior VTE?: No VTE Risk Level:: Medical - moderate - high VTE Device Contraindication: N/A - Device Ordered VTE Drug Contraindication: Treatment Not Indicated
[2022-10-28] MEDS: bisacodyL 5 MG TABLET.DR 10 MG PO (14:04)
[2022-10-28] MEDS: PEG 3350/Na Sulf,Bicarb,Cl/KCL 4,000 ML SOLN.RECON 4000 ML PO ×7 (14:05→18:32)
[2022-10-28] MEDS: Atorvastatin Calcium 40 MG TABLET PO (20:21)
[2022-10-28] MEDS: QUEtiapine Fumarate 25 MG TABLET 12.5 MG PO (20:21)
[2022-10-28] MEDS: Sennosides 8.6 MG TABLET 17.2 MG PO (20:21)
[2022-10-29 04:00] VITALS: BP 138/75; PULSE 94; RESP 18; TEMP 36.9; O2SAT 97
[2022-10-29] MEDS: Omeprazole 40 MG CAPSULE.DR PO (05:54)
[2022-10-29 06:20] LABS: Red Cell Distribution Width 27.6 % (11.0-16.0)
[2022-10-29 06:21] LABS: Hematocrit 30.3 % (37.0-47.0); Hemoglobin 9.1 g/dl (12.0-16.0); Mean Corpuscular Hemoglobin 19.3 pg (27.0-33.0); Mean Platelet Volume 10.2 fL (9.4-12.3); NRBC Pct Auto 0.4 /100WBC (0.0-0.2); Platelet Count 364 X10*3/uL (160-400); Red Blood Count 4.71 X10*6/uL (4.20-5.50); White Blood Count 10.7 X10*3/uL (4.8-10.8)
[2022-10-29 06:28] LABS: Mean Corpuscular Volume 64.3 fL (80.0-98.0)
[2022-10-29 07:28] VITALS: BP 127/68; PULSE 79; RESP 18; TEMP 37; O2SAT 98
--- NOTE | 2022-10-29 09:51 | HO.PM.IMPN ---
Subjective Subjective Date of Service: 10/29/22 Interval History: f/u on gib acute blood loss anemia Physical Exam Vital Signs: Vital Signs: Last Vital Signs Temp 98.6 F 10/29/22 07:28 Pulse 79 10/29/22 07:28 Resp 18 10/29/22 07:28 BP 127/68 10/29/22 07:28 Pulse Ox 98 10/29/22 07:28 O2 Del Method Room Air 10/29/22 07:28 BMI result Body Mass Index 26.1 Const: Other: General: AO X 3, no acute distress Resp: CTA bilateral CVS: S1,S2,RRR GI: +BS, NT, no distention Skin: No rash Neuro: motor grossly intact Psych: appropriate affect Objective Data Active Medications Acetaminophen (Acetaminophen 325 Mg Tablet) 650 mg PO Q6H PRN PRN Reason: Pain, Mild (Pain Scale 1-3) Lipase/Protease/Amylase (Lipase/Prot/Amylase 24/76/120k 1 Cap Capsule.) 1 cap PO QID [facility] Last Admin: 10/29/22 09:38 Dose: Not Given Documented By: GABRIELA Non-Admin Reason: NPO Atorvastatin Calcium (Atorvastatin Calcium 40 Mg Tablet) 40 mg PO BEDTIME [facility] Last Admin: 10/28/22 20:21 Dose: 40 mg Documented By: REYNALDO Bisacodyl (Bisacodyl 5 Mg Tablet.) 10 mg PO ONCE ONE Stop: 10/29/22 13:01 Last Admin: 10/28/22 14:04 Dose: 10 mg Documented By: STACY Comments: per to give now Docusate Sodium (Docusate Sodium 100 Mg Capsule) 100 mg PO DAILY [facility] Last Admin: 10/29/22 09:24 Dose: Not Given Documented By: GABRIELA Non-Admin Reason: NPO Fluticasone Propionate (Fluticasone Propionate Nasal 16 Gm [place]) 1 spray NOSTRIL-B DAILY [facility] Last Admin: 10/29/22 09:24 Dose: Not Given Documented By: GABRIELA Non-Admin Reason: Patient Refused Omeprazole (Omeprazole 40 Mg Capsule.) 40 mg PO DAILY@0630 [facility] Last Admin: 10/29/22 05:54 Dose: 40 mg Documented By: REYNALDO Pharmacy Consult (Consult Rx Perform Med Rec) 1 each MISCELLANE ONCE PRN PRN Reason: Consult order Quetiapine Fumarate (Quetiapine Fumarate 25 Mg Tablet) 12.5 mg PO BEDTIME [facility] Last Admin: 10/28/22 20:21 Dose: 12.5 mg Documented By: REYNALDO Senna (Sennosides 8.6 Mg Tablet) 17.2 mg PO BEDTIME [facility] Last Admin: 10/28/22 20:21 Dose: 17.2 mg Documented By: REYNALDO Sodium Chloride (0.9 % Sodium Chloride Flush 3 Ml Syringe) 3 ml IVFLUSH QSHIFT [facility] Last Admin: 10/29/22 07:23 Dose: Not Given Documented By: VERONICA-SOFFA Non-Admin Reason: See Note Labs 10/29/22 05:34 10/27/22 10:23 Labs: Laboratory Results - last 24 hr 10/27/22 10/29/22 10:23 05:34 MCV 64.3 L MCH 19.3 L MCHC 30.0 L RDW 27.6 H Plt Count 364 MPV 10.2 Absolute Nucleated RBC 0.040 H Nucleated RBC % (auto) 0.4 H Blood Type A Positive Antibody Screen NEGATIVE Crossmatch See Detail Assessment and Plan (1) Anemia: Status: Acute Plan This is a 72-year-old Swedish-speaking female who was sent to the emergency department after routine lab work revealed anemia Symptomatic microcytic Iron deficiency anemia, +occult blood Acute and chronic blood loss anemia no recent baseline for comparison h/o AVMs - last colonoscopy 2019 iron 12, nl folate and B12 CT abdomen --no source of bleed s/p 2 U RBC ordered in ED, H/H is better follow CBC GI to perform EGD/Colonoscopy 10/29 GERD continue omeprazole chronic constipation continue colace, senna HLD continue statin h/o IBS follows with [facility] [place] GI continue creon dvt ppx - mechanical devices HCP - son's Monica Castillo Code status - full code Need for inpatient: severe anemia, awaiting EGD and colonoscopy Time Spent With Patient Time: Total time managing care of this patient today ____ minutes. Quality Stroke Does the patient have a stroke diagnosis?: No VTE Prior VTE?: No VTE Risk Level:: Medical - moderate - high VTE Device Contraindication: N/A - Device Ordered VTE Drug Contraindication: Treatment Not Indicated
--- NOTE | 2022-10-29 10:30 | MHC.CLN ---
NUTRITION CONSULT FOR WEIGHT GAIN. REVIEW OF WEIGHT HX SHOWS WEIGHT GAIN+10.4% X 9 MONTHS. CURRENTLY NPO FOR EGD/COLONOSCOPY TODAY. WILL FOLOW UP 10/31
--- NOTE | 2022-10-29 12:47 | MHC.CM.PN ---
EGD AND COLONOSCOPY TODAY
[2022-10-29 14:42] VITALS: BP 152/65; PULSE 83; RESP 18; TEMP 36.6; O2SAT 100
--- NOTE | 2022-10-29 15:09 | P.CONAN_ITS ---
HPI - Anesthesia Eval Consult details Narrative: 72 F for EGD and colonoscopy no chest pain , SOB PMFSH Active Problems Active Problems: All Active Problems (Updated 10/28/22 @ 17:11 by Abbey Underwood MD) Chronic constipation (Acute) Anemia (Acute) Tendinitis of left rotator cuff (Acute) Thoracic back pain (Acute) Abdominal cramping (Acute) Diverticulitis (Acute) GERD (gastroesophageal reflux disease) (Acute) Hyperlipidemia (Acute) Past Medical History Medical History (Updated 10/28/22 @ 17:11 by Abbey Underwood MD) Adenomyomatosis of gallbladder Constipation Diverticulitis GERD (gastroesophageal reflux disease) Hyperlipidemia IBS (irritable bowel syndrome) Tubular adenoma of colon Functional capacity: independent ambulation Family History Family History Family/Other No problems noted. Family history of problems with anesthesia: No Surgical History Surgical History History of esophagogastroduodenoscopy (EGD) Hx of colonoscopy Hx of foot surgery Hx of laminectomy Hx of tubal ligation History of Problems with Anesthesia: No Social History Social History Household Members: None Housing: Apartment Do you presently have visiting nurse or other home services: Yes Alcohol intake: never Patient Tobacco Use Status: Never used Tobacco service: No Current occupational status: retired Meds Allergies Allergy/AdvReac Type Severity Reaction Status Date / Time Penicillins [PENICILLINS] Allergy Severe THROAT Verified 07/31/22 09:07 CLOSES/HIVES Active Medications: Current Medications Acetaminophen (Acetaminophen 325 Mg Tablet) 650 mg PO Q6H PRN PRN Reason: Pain, Mild (Pain Scale 1-3) Lipase/Protease/Amylase (Lipase/Prot/Amylase 24/76/120k 1 Cap Capsule.Dr) 1 cap PO QID [facility] Last Admin: 10/29/22 10:43 Dose: Not Given Atorvastatin Calcium (Atorvastatin Calcium 40 Mg Tablet) 40 mg PO BEDTIME [facility] Last Admin: 10/28/22 20:21 Dose: 40 mg Docusate Sodium (Docusate Sodium 100 Mg Capsule) 100 mg PO DAILY [facility] Last Admin: 10/29/22 09:24 Dose: Not Given Fluticasone Propionate (Fluticasone Propionate Nasal 16 Gm [place]) 1 spray NOSTRIL-B DAILY [facility] Last Admin: 10/29/22 09:24 Dose: Not Given Lactated Ringer's (Lr) 1,000 mls @ 50 mls/hr IVCONT .Q20H [facility] Omeprazole (Omeprazole 40 Mg Capsule.) 40 mg PO DAILY@0630 [facility] Last Admin: 10/29/22 05:54 Dose: 40 mg Pharmacy Consult (Consult Rx Perform Med Rec) 1 each MISCELLANE ONCE PRN PRN Reason: Consult order Quetiapine Fumarate (Quetiapine Fumarate 25 Mg Tablet) 12.5 mg PO BEDTIME [facility] Last Admin: 10/28/22 20:21 Dose: 12.5 mg Senna (Sennosides 8.6 Mg Tablet) 17.2 mg PO BEDTIME [facility] Last Admin: 10/28/22 20:21 Dose: 17.2 mg Sodium Chloride (0.9 % Sodium Chloride Flush 3 Ml Syringe) 3 ml IVFLUSH QSHIFT [facility] Last Admin: 10/29/22 14:33 Dose: Not Given Home Medications Medication Instructions Recorded Confirmed Last Taken Type acetaminophen 500 mg tablet 500 mg PO Q6H PRN Pain 10/03/20 10/27/22 10/26/22 History (Tylenol Extra Strength) atorvastatin 40 mg tablet 40 mg PO BEDTIME 10/03/20 10/27/22 10/26/22 History quetiapine 25 mg tablet 12.5 mg PO BEDTIME 10/03/20 10/27/22 10/26/22 History fluticasone propionate 50 1 spray intranasal DAILY 10/13/20 10/27/22 10/26/22 History mcg/actuation nasal spray,suspension calcium carbonate 600 mg-vitamin 1 tab PO DAILY 06/19/22 10/27/22 10/26/22 History D3 5 mcg (200 unit) tablet omeprazole 40 mg capsule,delayed 40 mg PO DAILY@0630 10/27/22 10/27/22 10/27/22 History release Exam Exam Date and Time: October 29, 2022 1509 Height,Weight and Vital Signs: Height 4 ft 11 in Weight 58.6 kg Last Vital Signs Temp 97.9 F 10/29/22 14:42 Pulse 83 10/29/22 14:42 Resp 18 10/29/22 14:42 BP 152/65 H 10/29/22 14:42 Pulse Ox 100 10/29/22 14:42 O2 Del Method Room Air 10/29/22 14:42 Pertinent Lab Results Pertinent Lab Results: Laboratory Tests 10/27/22 10/27/22 10/27/22 09:45 10:23 10:23 WBC 8.7 RBC 3.76 L Hgb 6.1 L* Hct 21.3 L MCV 56.6 L MCH 16.2 L MCHC 28.6 L RDW 19.5 H Plt Count 426 H MPV 10.0 Immature Gran % (Auto) 0.5 H Neut % (Auto) 61.3 Lymph % (Auto) 22.4 [place] % (Auto) 12.3 H Eos % (Auto) 2.5 Baso % (Auto) 1.0 Lymph # (Auto) 1.9 [place] # (Auto) 1.1 Eos # (Auto) 0.2 Baso # (Auto) 0.1 Abs Immat Gran (auto) 0.04 H Absolute Neuts (auto) 5.3 Absolute Nucleated RBC 0.000 Nucleated RBC % (auto) 0.0 Smear Path Review SEE NOTE PT INR APTT Sodium 140 Potassium 4.0 Chloride 110 H Carbon Dioxide 18 L Anion Gap 16 BUN 11 Creatinine 0.76 Estim Creat Clear Calc 53.0 Estimated GFR > 60 Random Glucose 105 Calcium 9.2 Iron 12 L TIBC 403 % Saturation 3 L Unsat Iron Binding 391 Ferritin < 2 L Total Bilirubin 0.5 AST 28 ALT 20 Alkaline Phosphatase 98 Lactate Dehydrogenase 192 Total Protein 7.8 Albumin 4.1 Vitamin B12 534 Folate 14.4 Stool Occult Blood NEGATIVE COVID-19 (JADE) COVID-19 Clin Com Blood Type Antibody Screen Crossmatch 10/27/22 10/27/22 10/27/22 10:23 10:23 11:52 WBC RBC Hgb Hct MCV MCH MCHC RDW Plt Count MPV Immature Gran % (Auto) Neut % (Auto) Lymph % (Auto) [place] % (Auto) Eos % (Auto) Baso % (Auto) Lymph # (Auto) [place] # (Auto) Eos # (Auto) Baso # (Auto) Abs Immat Gran (auto) Absolute Neuts (auto) Absolute Nucleated RBC Nucleated RBC % (auto) Smear Path Review PT 12.0 INR 1.0 APTT 26.7 Sodium Potassium Chloride Carbon Dioxide Anion Gap BUN Creatinine Estim Creat Clear Calc Estimated GFR Random Glucose Calcium Iron TIBC % Saturation Unsat Iron Binding Ferritin Total Bilirubin AST ALT Alkaline Phosphatase Lactate Dehydrogenase Total Protein Albumin Vitamin B12 Folate Stool Occult Blood COVID-19 (JADE) Negative COVID-19 Clin Com See Note Blood Type A Positive Antibody Screen NEGATIVE Crossmatch See Detail 10/28/22 10/28/22 10/29/22 04:01 05:11 05:34 WBC 11.4 H 10.7 RBC 4.07 L 4.71 Hgb 7.1 L 9.1 L D Hct 24.5 L 30.3 L D MCV 60.2 L 64.3 L MCH 17.4 L 19.3 L MCHC 29.0 L 30.0 L RDW 22.0 H 27.6 H Plt Count 379 364 MPV 10.2 10.2 Immature Gran % (Auto) Neut % (Auto) Lymph % (Auto) [place] % (Auto) Eos % (Auto) Baso % (Auto) Lymph # (Auto) [place] # (Auto) Eos # (Auto) Baso # (Auto) Abs Immat Gran (auto) Absolute Neuts (auto) Absolute Nucleated RBC 0.060 H 0.040 H Nucleated RBC % (auto) 0.5 H 0.4 H Smear Path Review PT INR APTT Sodium Potassium Chloride Carbon Dioxide Anion Gap BUN Creatinine Estim Creat Clear Calc Estimated GFR Random Glucose Calcium Iron TIBC % Saturation Unsat Iron Binding Ferritin Total Bilirubin AST ALT Alkaline Phosphatase Lactate Dehydrogenase Total Protein Albumin Vitamin B12 Folate Stool Occult Blood POSITIVE COVID-19 (JADE) COVID-19 Clin Com Blood Type Antibody Screen Crossmatch Narrative Narrative: Date of Service: 10/05/20 Procedure(s): ECG 12 lead EKG Vent. Rate : 094 BPM ? ? Atrial Rate : 094 BPM ?? P-R Int : 128 ms? QRS Dur : 066 ms ? ? QT Int : 368 ms ? ? ? P-R-T Axes : 070 081 074 degrees ?? QTc Int : 460 ms ? Normal sinus rhythm Nonspecific ST abnormality Abnormal ECG When compared with ECG of 25-APR-2018 18:09, No significant change was found Airway Mallampati Class: IV TM Dist: >3cm Neck ROM: Full Loose/Missing/Broken Teeth: Yes (poor ) Heart: S1,S2 Lungs: b/l breath sounds Assessment and Plan Assessment Anesthesia Assessment: Anesthesia Plan Discussed and Chart Reviewed Final Anesthetic Review Family History of Problems with Anesthesia: No History of Problems with Anesthesia: No NPO: Yes ASA Class: III and Emergency Final Preanesthetic Review: Meds/Allgs Chart Reviewed, Consent Obtained/Reviewed and Anes Risks/Benef Reviewed Patient Risk: Intermediate Procedure Risk: Intermediate Anesthetic Plan Anesthetic Plan: MAC: Disposition: Standard PACU
--- NOTE | 2022-10-29 15:17 | MHC.SHP ---
Pre-Procedural Eval Section A Date of Service: 10/29/22 The patient is an INPATIENT: Yes Changes since office visit: Yes New Medical Problems, Yes Changes in Medication and Yes Patient answered all questions; No Cold of Flu in the past 2 weeks The History & Physical has been completed within 30 days and I have reviewed it.: Yes Section B Chief Complaint: Anemia Allergies: Allergies Allergy/AdvReac Type Severity Reaction Status Date / Time Penicillins [PENICILLINS] Allergy Severe THROAT Verified 07/31/22 09:07 CLOSES/HIVES Plan I have reviewed the history and physical and performed a pertinent physical examination on my patient. No changes have occurred unless specified. Time Spent With Patient Time: Total time managing care of this patient today ____ minutes.
--- NOTE | 2022-10-29 15:18 | PM.OP ---
Brief Operative Note Date of Service: 10/29/22 Pre-op diagnosis: iron deficiency anemia, abdominal pain Post-op diagnosis: other ( hiatal hernia, gastritis, gastric antral nodule, colon polyp, diverticulosis, hemorrhoids) Procedure: FLEXIBLE TRANSORAL UPPER GASTROINTESTINAL ENDOSCOPY WITH BIOPSIES AND COLONOSCOPY TILL CECUM WITH BIOPSIES AND APC OF RT COLON AVMS Surgeon: Abbey Underwood MD Anesthesia: MAC Was an Manager Cosmetic used for this Procedure?: Yes Manager Cosmetic: Steve French Estimated blood loss (mL): 2 Pathology: other (A) BX Small Bowel (R/O Celiac's) B) BX Gastric Antrum (R/O H.Pylori) C) BX Gastric Antrum Nodule D) BX Right Colon (R/O Microscopic Colitis) E) BX Left Colon (R/O Microscopic Colitis) ) Condition: stable Disposition: PACU
[2022-10-29] MEDS: Lactated Ringers 1,000 ML 50 ML IVCONT (15:22)
--- NOTE | 2022-10-29 15:50 | W.PM.OPN ---
Operative Note Operative Note Date of Service: 10/29/22 Narrative: FLEXIBLE TRANSORAL UPPER GASTROINTESTINAL ENDOSCOPY WITH BIOPSIES AND COLONOSCOPY TILL CECUM WITH BIOPSIES AND APC OF RT COLON AVMS Pre-op diagnosis: Iron deficiency anemia,? abdominal pain Post-op diagnosis: hiatal hernia, gastritis, gastric antral nodule, colon polyp, diverticulosis, hemorrhoids Surgeon: Abbey Underwood MD Anesthesia: MAC UPPER ENDOSCOPY Consent: Indications for the procedure and potential complications of bleeding, perforation, reaction to medications and missed diagnosis were discussed with the patient and informed consent was obtained. Instrument: Olympus GIF H 190 mid size upper endoscope Monitoring: Vital signs and clinical assessment, continuous EKG monitoring, Pulse oximetry, Carbon Dioxide monitoring and blood pressure monitoring were done throughout the procedure. Procedure: The patient was placed in the left lateral decubitis position and pre-procedure medications were administered and a bite block was placed. The endoscope was inserted into the mouth and advanced under direct vision to the third part of duodenum. A careful inspection was made as the upper endoscope was withdrawn including a retroflexed examination of the proximal stomach; Findings and interventions are described below. Findings: Larynx: Normal Esophagus: GE junction at 32 cms, hiatal hernia 32 to 35 cms. A non-obstructing Schatzki's ring at GE junction. No esophagitis or Bob's. Stomach: Mild gastric erythema. Biopsies were obtained. A 9 to 10 mm benign appearing nodule in the antrum - biopsied. Grade 2 flap valve on retroflexed examination of the cardia. Duodenum: Normal bulb and descending duodenum. Biopsies obtained from 3rd part of the duodenum to check for celiac sprue. Intervention: Biopsies as noted above COLONOSCOPY PROCEDURE NOTE Consent: Indications for the procedure and potential complications of bleeding, perforation, reaction to medications and missed diagnosis were discussed with the patient and informed consent was obtained. Instrument: Olympus PCF H 190 L variable stiffness pediatric colonoscope Monitoring: Vital signs and clinical assessment, intermittent blood pressure monitoring, continuous EKG monitoring, Pulse oximetry and Carbon Dioxide monitoring were done throughout the procedure. Colon withdrawl time was 19 minutes. Procedure: The patient was placed in the left lateral decubitis position and pre-procedure medications were administered. After a digital rectal examination of the ano-rectum, the video colonoscope was inserted into the rectum and advanced through the colon to the cecum. The colonoscope was slowly withdrawn in a retrograde panoramic fashion and the colon mucosa was carefully examined including a retroflexed view of the rectum. Findings and interventions are described below. Procedure Difficulty: Colon was long and tortuous and there was spasm and recurrent loop formation. No maneuvers were required. Findings: Terminal Ileum: Not evaluated Cecum: A cluster of three 9 to 10 mm AVMs - ablated with APC Ascending Colon: Two clusters of three to four 8 to 9 mm AVMs in the proximal AC - ablated with APC Transverse Colon: Moderate diverticulosis Descending Colon: Moderate diverticulosis Sigmoid Colon: A 3-4 mm diminutive appearing polyp removed with a cold biopsy Severe diverticulosis with luminal narrowing. Rectum: Normal Ano-rectum: Small internal hemorrhoids Colon preparation: Good after copious irrigation Impression and Post Procedure Diagnosis: Endoscopy Findings: ESOPHAGUS: GE junction at 32 cms, small hiatal hernia 32 to 35 cms. A non-obstructing Schatzki's ring at GE junction. No esophagitis or Bob's. STOMACH: Gastritis and benign appearing gastric antral nodule DUODENUM: Normal - biopsied to check for celiac sprue Colonoscopy Findings: One diminutive appearing polyp removed Random biopsies were obtained from right and left colon to check for microscopic colitis. Moderate diverticulosis seen in the transverse and left colon Small hemorrhoids on retroflexed exam. Plan: Ok to discharge home on oral iron and FU with PCP in 1-2 weeks with repeat CBC and ferritin. I will contact the patient with pathology results Patient has an appointment on 01/29/23 in the GI Clinic with Chayo Yo NP. Repeat Colonoscopy interval based on path results - in 5 years if polyp is adenomatous and can discontinue colon cancer screening if polyps are hyperplastic. Above findings were reviewed with the patient's son. BIOPSIES SHOWED: A.? Small bowel, biopsy:? Small bowel mucosa with preserved villi and no specific change; no evidence of celiac disease. B.? Gastric antrum, biopsy:? Gastric antral mucosa with reactive changes and focal minimal chronic inactive inflammation; negative for H pylori, intestinal metaplasia and dysplasia. C.? Gastric antrum, nodule, biopsy:? Superficial fragments of gastric antral mucosa with reactive changes and minimal chronic inactive inflammation; negative for intestinal metaplasia and dysplasia. D.? Colon, right, biopsy:? Colonic mucosa with pigmented lamina propria macrophages suggesting melanosis coli, otherwise no specific change; no evidence of microscopic colitis.? E.? Colon, left, biopsy:? Colonic mucosa with pigmented lamina propria macrophages suggesting melanosis coli, otherwise no specific change; no evidence of microscopic colitis. F.? Colon, sigmoid, polyp:? Benign polypoid colonic mucosa with pigmented lamina propria macrophages suggesting melanosis coli; negative for adenomatous dysplasia.
[2022-10-29 17:15] VITALS: BP 133/53; PULSE 87; RESP 16; TEMP 36.6; O2SAT 99
[2022-10-29 17:30] VITALS: BP 129/63; PULSE 81; RESP 16; TEMP 36.7; O2SAT 94
[2022-10-29 17:46] VITALS: BP 142/67; PULSE 79; RESP 16; O2SAT 94
--- NOTE | 2022-10-29 18:13 | PM.DS ---
DS: Providers Provider Date of Service: 10/29/22 Date of admission: 10/27/22 12:09 Primary care physician: Aster Valle NP Consults: 10/27/22 13:26 Consult to Gastroenterology Routine Consulting Provider: Abbey Underwood Reason for consultation: iron deficiency anemia Has provider been notified: No DS: Diagnosis Discharge Diagnosis (1) Anemia: Status: Acute DS: Summary Hospital Course Hospital Course: Admission HPI Chief Complaint: Abnormal labs/anemia This is a 72 year old female with history of gerd who was sent to the ED after routine lab work revealed anemia.? Patient was seen in follow-up by her PCP earlier in the week who ordered routine lab work.? She was call last evening and told that she had anemia and she should present herself to the emergency department.? H/H was noted to be 6.1/21.3.? She denies any rectal or vaginal bleeding.? She denies any changes in stool color or caliber.? She denies recent weight loss.? She denies use of alcohol and rarely uses Aleve for mild pain.? Her last colonoscopy was in September of 2019 which showed focal AVMs of ascending colon, internal hemorrhoids. Does have history of tubular adenoma.? EGD done 2018 with small hiatal hernia, early shcatzki's ring. She has no previous history of anemia and has never taken iron replacement.? For the past one month she reports generalized fatigue and some dyspnea with exertion. He does report some mild, intermittent epigastric abdominal pain. Stool occult from ED was negative. Hospital course: Symptomatic microcytic Iron deficiency anemia, +occult blood on top of chronic anenia. Hemoglobin was 6. She was transfused 2 units of RBCs and hemoglobin is now 9. Iron study showed Iron deficiency, B12, Folate were normal. EGD and Colonoscopy on 10/[address] Underwood revealed the following finding and recommendation: EGD showed gastritis and a hiatal hernia. Colon showed diverticulosis. AVMs in the right colon were ablated. She can be discharged on oral iron and fu with PCP in 1-2 weeks with repeat cbc. She's been discharged with Iron, colace to prevent constipation and vitaminc to increase iron absorption. GERD continue omeprazole chronic constipation continue colace, senna HLD continue statin h/o IBS follows with [facility] continue creon for pancreatic insuficiency Time Spent with Patient Time attestation: Total time managing care of this patient today ____ minutes. Discharge coordination time: Greater than 30 minutes Quality: Safe Use of Opioids Does Pt have an Active Cancer Diagnosis on the Problem List?: No Quality: Stroke Does the patient have a stroke diagnosis?: No Physical Exam Vital Signs: Vital Signs: Last Vital Signs Temp 98.0 F 10/29/22 17:30 Pulse 79 10/29/22 17:46 Resp 16 10/29/22 17:46 BP 142/67 H 10/29/22 17:46 Pulse Ox 94 10/29/22 17:46 O2 Del Method Room Air 10/29/22 17:46 BMI result Body Mass Index 26.1 Const: Other: see progress note DS: Data Data Completed and Pending Pending studies at discharge: Pending at discharge 10/29/22 16:24 Surgical [PTH] Routine Labs on day of discharge: Laboratory Results - last 24 hr 10/27/22 10/27/22 10/29/22 10:23 10:23 05:34 WBC 10.7 RBC 4.71 Hgb 9.1 L D Hct 30.3 L D MCV 64.3 L MCH 19.3 L MCHC 30.0 L RDW 27.6 H Plt Count 364 MPV 10.2 Absolute Nucleated RBC 0.040 H Nucleated RBC % (auto) 0.4 H Smear Path Review SEE NOTE Blood Type A Positive Antibody Screen NEGATIVE Crossmatch See Detail Discharge Plan Discharge Anticipated Discharge Date/Time: 10/29/22 18:05 Patient Disposition: Home, Self-Care Discharge Diagnosis: Acute blood loss anemia, gib, gastritis, diverticulosis Referrals: Abbey Underwood MD [Physician] - 2 Weeks (Call for appointment) Aster Valle NP [Primary Care Provider] - 1 Week Discharge Medications: New ferrous sulfate [Iron (ferrous sulfate)] 325 mg (65 mg iron) tablet 325 mg PO DAILY Qty: 30 1RF ascorbic acid (vitamin C) [Vitamin C] 500 mg capsule, extended release 500 mg PO DAILY Qty: 30 0RF docusate sodium [DOK] 100 mg capsule 100 mg PO BID Qty: 60 1RF Continued omeprazole 40 mg capsule,delayed release(DR/EC) 40 mg PO DAILY@0630 fluticasone propionate 50 mcg/actuation spray,suspension 1 spray intranasal DAILY Rx Instructions: administer into each nostril atorvastatin 40 mg tablet 40 mg PO BEDTIME acetaminophen [Tylenol Extra Strength] 500 mg tablet 500 mg PO Q6H PRN (Reason: Pain) quetiapine 25 mg tablet 12.5 mg PO BEDTIME calcium carbonate-vitamin D3 600 mg-5 mcg (200 unit) tablet 1 tab PO DAILY Creon 24,000-76,000 -120,000 unit capsule,delayed release(DR/EC) 1 cap PO QID Qty: 120 6RF docusate sodium [Colace] 100 mg capsule 100 mg PO DAILY 30 Days Qty: 30 6RF senna 8.6 mg capsule 17.2 mg PO BEDTIME 30 Days Qty: 60 6RF Discharge Orders: Discharge Order (Routine); Ordered 10/29/22 Ordered By: Sukh Arroyo Diet: Regular diet Activity on Discharge: As tolerated Stand Alone Forms: Patient Portal Discharge page Care Plan Goals: Resolution of anenia, GI bleeding Health Concerns: iron deficiency anemiam Gastritis, diverticulosis Plan of Treatment: Take Iron, Vitamin C and colace as directed, Follow up with Dr Underwood in 1 to 2 weeks, call office Avoid Motrin or Advil or other over the counter pain medications besides tylenol Assessment: As above
[2022-10-30 15:04] LABS: Immunoglobulin A 363 mg/dL (70-320)
[2022-11-02 09:18] LABS: Transglutaminase IgA <1.0 U/mL
== END 2022-10-29 18:49 | disposition home or self-care (01) | DRG 394 ==
LOC: HO.ED 11:14 → HO.EDOVER 12:20 → HO.IMC 13:14 → HO.S3 19:24
PROVIDERS: Internal Medicine Gastroenterology; Admitting Provider Physician Assistant Medical; Emergency Provider Emergency Medicine; PCP Nurse Practitioner Primary Care; Visit Provider Internal Medicine
PROC: 0DB98ZX Excision of Duodenum, Via Natural or Artificial Opening Endoscopic, Diagnostic (ICD-10-PCS; CPT 43239; principal; 2022-10-29 16:00)
DX: K55.20 Angiodysplasia of colon without hemorrhage (principal); D62 Acute posthemorrhagic anemia; K21.9 Gastro-esophageal reflux disease without esophagitis; K29.70 Gastritis, unspecified, without bleeding; K44.9 Diaphragmatic hernia without obstruction or gangrene; K64.8 Other hemorrhoids; K63.5 Polyp of colon; K59.09 Other constipation; E78.5 Hyperlipidemia, unspecified; Z20.822 Contact with and (suspected) exposure to COVID-19; Z88.0 Allergy status to penicillin; Z79.51 Long term (current) use of inhaled steroids; Z79.899 Other long term (current) drug therapy
CPT/HCPCS: 43239; 45388; 45380; 36415; 74176; 80053; 82272; 82607; 82728; 82746; 82784; 83540; 83615; 85025; 85027; 85610; 85730; 86364; 86850; 86900; 86901; 86923; 87635; 88305; 88342; 99221; 99285; J3010; P9016

== ENCOUNTER → 2022-11-21 11:12 | Outpatient (BNVA) | payer OTHER, SELFPAY | PROVIDERS: PCP Nurse Practitioner Primary Care; Visit Provider Nurse Practitioner | DX: D12.6 Benign neoplasm of colon, unspecified (principal); K21.9 Gastro-esophageal reflux disease without esophagitis; K58.9 Irritable bowel syndrome, unspecified | CPT/HCPCS: 99212 ==

== ENCOUNTER 2023-02-28 13:39 | Emergency (ER) | payer OTHER, SELFPAY ==
--- NOTE | ~2023-02-28 | XR_ITS ---
EXAMINATION: XR LUMBOSACRAL SPINE CLINICAL INFORMATION: Back pain. COMPARISON: Lumbar spine radiographs dated 02/21/2015. TECHNIQUE: Three views of the lumbosacral spine. FINDINGS: The vertebral bodies and posterior elements are normal. The disc spaces are preserved and the vertebral alignment is normal. The paraspinal soft tissues are normal. Moderate to severe atherosclerosis in the inferior abdominal aorta and common iliac vessels. XR/XR lumbar spine 2-3V IMPRESSION: Unremarkable lumbar spine.
--- NOTE | ~2023-02-28 | XR_ITS ---
EXAMINATION: XR SACRUM AND COCCYX CLINICAL INFORMATION: Back pain. COMPARISON: None available. TECHNIQUE: 2 views of the sacrum and 2 views of the coccyx were obtained. FINDINGS: There are no fractures. No bone, joint or soft tissue abnormality is demonstrated. XR/XR sacrum coccyx min 2V IMPRESSION: Unremarkable sacrum/coccyx.
--- NOTE | ~2023-02-28 | CT_ITS ---
EXAMINATION: CT ABDOMEN AND PELVIS WITH CONTRAST CLINICAL INFORMATION: Left pelvic pain, question hernia COMPARISON: CT abdomen and pelvis from 10/27/2022 TECHNIQUE: Multidetector volumetric images were obtained from the superior aspect of the liver through the pubic symphysis following administration 85 mL of Omnipaque 350 intravenous contrast. Sagittal and coronal reformatted images were obtained on the technologist's workstation. Oral contrast: No This CT examination was performed using dose optimization techniques as appropriate, variously including the following: *Automated exposure control *Adjustment of mA and/or kV according to patient size (this includes techniques or standardized protocols for targeted exams where dose is matched to indication/reason for exam; i.e. extremities or head) *Use of iterative reconstruction technique DLP: 375 mGy-cm FINDINGS: LUNG BASES: Emphysematous changes. LIVER, GALLBLADDER, AND BILIARY TREE: The liver is normal in size and shape. Slightly decreased hepatic attenuation suggesting hepatic steatosis. No focal hepatic lesion or biliary ductal dilatation is present. Redemonstration of gallbladder wall thickening with calcifications suggesting elements of adenomyomatosis, stable. PANCREAS: Unremarkable. SPLEEN: Unremarkable. 6 mm splenule. ADRENAL GLANDS: Unremarkable. KIDNEYS AND URETERS: Bilateral renal hypodense foci demonstrating fluid attenuation statistically representing cysts. No right-sided nephrolithiasis or hydronephrosis. Left extrarenal pelvis. No left-sided nephrolithiasis or hydronephrosis. BLADDER: Decompressed, limiting evaluation. GASTROINTESTINAL TRACT: Colonic diverticulosis with bowel wall thickening and trace pericolonic inflammatory changes involving the sigmoid colon suggesting diverticulitis. The small and large bowel are unremarkable. The appendix is unremarkable. ABDOMINAL WALL: Diastases rectae. LYMPH NODES: Normal. VASCULAR: Abdominal aorta is nonaneurysmal. Atherosclerotic calcifications of the abdominal aorta and its branches. PELVIC VISCERA: Anteverted uterus. Redemonstration of calcified uterine fibroid involving the fundus. OSSEOUS STRUCTURES: Multilevel degenerative changes of the thoracolumbar lumbosacral spine. Degenerative changes of the left sacroiliac joint. CT/CT abdomen pelvis w IV con IMPRESSION: 1. Colonic diverticulosis with bowel wall thickening and trace pericolonic inflammatory changes involving the sigmoid colon suggesting diverticulitis. 2. Slightly decreased hepatic attenuation suggesting hepatic steatosis. 3. Redemonstration of gallbladder wall thickening with calcifications suggesting elements of adenomyomatosis, stable. 4. Bilateral renal hypodense foci demonstrating fluid attenuation statistically representing cysts. 5. Redemonstration of calcified uterine fibroid involving the fundus.
--- NOTE | 2023-02-28 13:42 | ED.GENADULT ---
HPI - General Adult General Chief complaint: Back Pain/Injury Stated complaint: back pain Time Seen by Provider: 02/28/23 15:23 Source: patient Mode of arrival: ambulatory Limitations: no limitations History of Present Illness HPI narrative: 73 year old female with history significant for IBS, diverticulitis, tubular adenoma of colon, GERD, HDL, and left rotator cuff tendinitis presents to the ED today with atraumatic left-sided low back pain with radiation to the left groin x2 days. States the left groin area will swell up and then go down . Reports previous left inguinal hernia diagnosed by per GI doctor which did not require surgery. Denies fever, chills, abdominal pain, dysuria, hematuria, saddle paraesthesias, bowel/ bladder incontinence or retention, IVDU. Patients son at bedside to assist with slovak interpretation. MD complaint: left lower back pain radiating to the left groin Onset (ago): day(s) (2) Location: back Radiation: other (groin) Severity: severe Severity scale (1-10): 10 Quality: sharp Pain Consistency: intermittent Relieving factors: movement Exacerbating factors: rest Associated symptoms: other ( left anterior thigh pain) Treatments prior to arrival: NSAID Related Data Home Medications Medication Instructions Recorded Confirmed acetaminophen 500 mg tablet 500 mg PO Q6H PRN Pain 10/03/20 10/27/22 (Tylenol Extra Strength) atorvastatin 40 mg tablet 40 mg PO BEDTIME 10/03/20 10/27/22 quetiapine 25 mg tablet 12.5 mg PO BEDTIME 10/03/20 10/27/22 fluticasone propionate 50 1 spray intranasal DAILY 10/13/20 10/27/22 mcg/actuation nasal spray,suspension Previous Rx's Medication Instructions Recorded ascorbic acid (vitamin C) 500 mg 500 mg PO DAILY #30 caps 10/29/22 capsule,extended release (Vitamin C) ferrous sulfate 325 mg (65 mg 325 mg PO DAILY #30 tabs 10/29/22 iron) tablet (Iron (ferrous sulfate)) docusate sodium 100 mg capsule 100 mg PO BID #60 caps 11/21/22 (DOK) [id number] 1 cap PO QID #120 caps 11/21/22 24,000-76,000-120,000 unit capsule,delayed rel (Creon) omeprazole 40 mg capsule,delayed 40 mg PO DAILY@0630 #30 caps 11/21/22 release sennosides 8.6 mg capsule (senna) 17.2 mg PO BEDTIME constipation 30 11/21/22 days #60 caps levofloxacin 750 mg tablet 750 mg PO DAILY #6 tabs 02/28/23 metronidazole 500 mg tablet 500 mg PO TID 7 days #20 tabs 02/28/23 Allergies Allergy/AdvReac Type Severity Reaction Status Date / Time Penicillins [PENICILLINS] Allergy Severe THROAT Verified 11/21/22 11:23 CLOSES/HIVES Review of Systems Review of Systems: Yes all other systems are reviewed and are negative [facility] Past Medical History Attestation statement: The following information was validated with the patient. Source: old records reviewed and nursing notes reviewed Medical History Adenomyomatosis of gallbladder Constipation Diverticulitis GERD (gastroesophageal reflux disease) Hyperlipidemia IBS (irritable bowel syndrome) Tubular adenoma of colon Surgical History History of esophagogastroduodenoscopy (EGD) Hx of colonoscopy Hx of foot surgery Hx of laminectomy Hx of tubal ligation Family History Family History Family/Other No problems noted. Social History Social History Household Members: None Housing: Apartment Do you presently have visiting nurse or other home services: Yes Alcohol intake: never Patient Tobacco Use Status: Never used Tobacco Smoked in Last 30 Days: Yes Use of substances other than those prescribed or required for medical reasons: No Advance Directives: No Advance Directives Information Provided: No service: No Current occupational status: retired Physical Exam ED Vital Signs: Vital Signs - 24 hr 02/28/23 13:43 02/28/23 17:34 02/28/23 18:48 Temperature 98.2 F 97.7 F 98.2 F Pulse Rate 102 H 78 66 Respiratory Rate 18 16 18 Blood Pressure 176/90 H 142/60 H 150/68 H Pulse Oximetry 96 100 99 Oxygen Delivery Method Room Air Room Air Room Air BMI result Body Mass Index 24.8 Appearance: Alert. Oriented X3. No acute distress. Head: normocephalic, atraumatic. Eyes: Pupils equal, round and reactive to light. ENT: Pharynx normal. No tonsillar swelling or exudate. Neck: Normal inspection. Neck supple. CVS: Normal heart rate and rhythm. Pulses normal. Respiratory: No respiratory distress. Breath sounds normal. Abdomen: Soft with moderate tenderness of the left pubic area, no palpable mass or hernia. +BS x4 Back: normal inspection, no midline tenderness. There is left-sided upper lumbar and lower thoracic soft tissue tenderness. No CVA tenderness. Skin: Skin warm and dry. Normal skin color. Normal skin turgor. No rashes. Extremities: No lower extremity edema. No joint swelling. Neuro/psych: Oriented X 3. No motor deficit. No sensory deficit. CN II-XII intact. Normal speech and cognition. Course Course Course Narrative: This is an RME: Additional HPI, ROS, PE not included below will be deferred to primary provider. This is a 65-[id number]-female, past medical history of hyperlipidemia and GERD, presenting to the ER with complaints of left low back pain x 2 days. No urinary symptoms. VSS. Tenderness to palpation in the left lumbar musculature. VSS. Plan: X-rays Reevaluation(s) Reevaluation #1: signed out to Wilma SHAIKH who will f/u CT scan results and determine dispo plan Time: 18:53 Reevaluation #2: CT of the abdomen and pelvis reveals diverticulitis of the sigmoid colon. Patient is tolerating oral intake. ABD is without rigidity or guarding. Discussed plan of care for discharge home, received 1st dose of metronidazole and Levaquin in the emergency department, sent additional prescription to pharmacy. Advised outpatient follow-up with her primary care provider. Reviewed worrisome signs and symptoms that would warrant re-evaluation in the emergency department. All questions answered. Stable for discharge. Time: 22:01 Medications Administered Discontinued Medications Generic Name Dose Route Start Last Admin Trade Name Toña PRN Reason Stop Dose Admin Acetaminophen 975 mg 02/28/23 16:38 02/28/23 17:26 Acetaminophen 325 Mg Tablet PO 02/28/23 16:39 975 mg ONCE ONE Administration Iohexol 100 ml 02/28/23 18:34 02/28/23 18:35 Iohexol 350 Mg/Ml 100 Ml Infus..Btl IV 02/28/23 18:35 85 ml ONCE ONE Administration Lidocaine 1 patch 02/28/23 16:38 02/28/23 17:27 Lidocaine 4 % Patch Adh..Patch TRANSDERMA 02/28/23 16:39 1 patch ONCE ONE Administration Protocol Medical Decision Making Medical Decision Making [facility] Narrative: 73 year old female with history significant for IBS, diverticulitis, tubular adenoma of colon, GERD, HDL, and left rotator cuff tendinitis presents to the ED today with atraumatic left-sided low back pain with radiation to the left groin x2 days. States the left groin area will swell up and then go down . Reports previous left inguinal hernia diagnosed by per GI doctor which did not require surgery. Vital signs stable. Physical exam significant for tenderness to palpation of the left lumbar and left sacral region without midline spinous tenderness, abdomen soft and TTP to the left suprapubic region without palpable mass. Plan: labs, UA, lumbar and sacral xrays Patient reports history of left inguinal hernia, no mass palpated, will order CT abd pelvis w/ contrast given tenderness in the area. Differential Diagnosis Differential Diagnoses: The differential diagnosis associated with the presentation includes diverticulitis, muscle sprain/ strain, nerve compression, spinal stenosis, nephrolithiasis, cauda equina, inguinal hernia Admission/Observation Consideration of admission/observation: Escalation of care including admission/observation considered severe pain in elderly female, considered admission Lab Data [facility] Lab Attestation statement: I reviewed the patient's lab results. CBC with mild leukocytosis, no anemia. CMP without acute electrolyte abnormalities. UA without infection or blood. 02/28/23 14:55 02/28/23 14:55 Labs: Lab Results 02/28/23 02/28/23 02/28/23 Range/Units 14:55 14:55 16:29 WBC 11.5 H (4.8-10.8) X10*3/uL RBC 4.95 (4.20-5.50) X10*6/uL Hgb 14.0 D (12.0-16.0) g/dl Hct 41.4 D (37.0-47.0) % MCV 83.6 (80.0-98.0) fL MCH 28.3 (27.0-33.0) pg MCHC 33.8 (31.0-35.0) g/dl RDW 13.8 (11.0-16.0) % Plt Count 271 D (160-400) X10*3/uL MPV 10.5 (9.4-12.3) fL Immature Gran % (Auto) 0.5 H (0.0-0.4) % Neut % (Auto) 72.9 (45-73) % Lymph % (Auto) 15.0 L (20-40) % [place] % (Auto) 10.3 (2-11) % Eos % (Auto) 0.9 (0-4) % Baso % (Auto) 0.4 (0-2) % Lymph # (Auto) 1.7 (1.2-4.9) X10*3/uL [place] # (Auto) 1.2 (0.1-1.2) X10*3/uL Eos # (Auto) 0.1 (0.0-0.4) X10*3/uL Baso # (Auto) 0.1 (0.0-0.2) X10*3/uL Abs Immat Gran (auto) 0.06 H (0.00-0.03) X10*3/uL Absolute Neuts (auto) 8.4 H (2.0-8.3) x10*3/uL Absolute Nucleated RBC 0.000 (0.0-0.012) X10*3/uL Nucleated RBC % (auto) 0.0 (0.0-0.2) /100WBC Sodium 140 (135-145) mmol/L Potassium 3.9 (3.3-5.1) mmol/L Chloride 109 H (96-108) mmol/L Carbon Dioxide 19 L (22-29) mmol/L Anion Gap 16 (12-20) BUN 9 (9-16) mg/dL Creatinine 0.71 (0.5-1.4) mg/dL Estim Creat Clear Calc 57.7 Estimated GFR > 60 Random Glucose 103 (60-115) mg/dL Calcium 10.0 D (8.4-10.2) mg/dL Urine Color Yellow Urine Appearance Clear Urine pH 5.5 (5.0-9.0) Ur Specific [place] <= 1.005 (1.005-1.025) Urine Protein Negative (Neg-Trace) mg/dL Urine Glucose (UA) Negative (Negative) mg/dL Urine Ketones Negative (Negative) mg/dL Urine Blood Negative (Negative) Urine Nitrite Negative (Negative) Ur Leukocyte Esterase Negative (Negative) Independent Interpretation I performed an independent interpretation of an: Plain X-Ray Interpretation: Xray lumbar spine: no fracture or soft tissue abnormality noted, agree with radiologists interpretation. Xray sacrum: no fracture or soft tissue abnormality noted, agree with radiologists interpretation. Radiology Impression Discussion of test interpretation with radiology: I have reviewed the radiologist's reading. Radiologist Impression: XR lumbar spine 2-3V IMPRESSION: Unremarkable lumbar spine. XR sacrum coccyx min 2V IMPRESSION: Unremarkable sacrum/coccyx. CT/CT abdomen pelvis w IV con IMPRESSION: 1.? Colonic diverticulosis with bowel wall thickening and trace pericolonic inflammatory changes involving the sigmoid colon suggesting diverticulitis. 2.? Slightly decreased hepatic attenuation suggesting hepatic steatosis. 3.? Redemonstration of gallbladder wall thickening with calcifications suggesting elements of adenomyomatosis, stable. 4.? Bilateral renal hypodense foci demonstrating fluid attenuation statistically representing cysts. 5.? Redemonstration of calcified uterine fibroid involving the fundus. Independent Historian Clinical information obtained from an independent historian. History obtained from or confirmed by: Other (son) External Record Review External record reviewed: Inpatient record and Outpatient record Prescription Management I considered prescription management with: Pain Medication Chronic Conditions Patient?s care impacted by: Other (diverticulitis) Critical Care Time Critical Care Time Critical Care Time: No Discharge Plan Discharge Clinical Impression: Diverticulitis Patient Disposition: Home, Self-Care Instructions: Diverticulitis (ED), Diverticulitis Diet (ED) Prescriptions: New metronidazole 500 mg tablet 500 mg PO TID 7 Days Qty: 20 0RF levofloxacin 750 mg tablet 750 mg PO DAILY Qty: 6 0RF No Action ferrous sulfate [Iron (ferrous sulfate)] 325 mg (65 mg iron) tablet 325 mg PO DAILY Qty: 30 1RF ascorbic acid (vitamin C) [Vitamin C] 500 mg capsule, extended release 500 mg PO DAILY Qty: 30 0RF fluticasone propionate 50 mcg/actuation spray,suspension 1 spray intranasal DAILY Rx Instructions: administer into each nostril atorvastatin 40 mg tablet 40 mg PO BEDTIME acetaminophen [Tylenol Extra Strength] 500 mg tablet 500 mg PO Q6H PRN (Reason: Pain) quetiapine 25 mg tablet 12.5 mg PO BEDTIME omeprazole 40 mg capsule,delayed release(DR/EC) 40 mg PO DAILY@0630 Qty: 30 6RF Creon 24,000-76,000 -120,000 unit capsule,delayed release(DR/EC) 1 cap PO QID Qty: 120 6RF senna 8.6 mg capsule 17.2 mg PO BEDTIME 30 Days Qty: 60 6RF docusate sodium [DOK] 100 mg capsule 100 mg PO BID Qty: 60 6RF Referrals: Aster Valle [employer] [Primary Care Provider] - Interventions: ED Discharge Assessment Last Done: 02/28/23 21:57
[2023-02-28 13:43] VITALS: BP 176/90; PULSE 102; RESP 18; TEMP 36.8; O2SAT 96; BMI 24.8
[2023-02-28 15:01] LABS: MANUAL DIFF FLAG NO
[2023-02-28 15:04] LABS: Basophils Absolute Auto 0.1 X10*3/uL (0.0-0.2); Basophils Percent Auto 0.4 % (0-2); Eosinophils Absolute Auto 0.1 X10*3/uL (0.0-0.4); Eosinophils Percent Auto 0.9 % (0-4); Hematocrit 41.4 % (37.0-47.0); Imm Gran Abs Auto 0.06 X10*3/uL (0.00-0.03); Imm Gran Pct Auto 0.5 % (0.0-0.4); Lymphocytes Absolute Auto 1.7 X10*3/uL (1.2-4.9); Mean Corpuscular HGB Conc 33.8 g/dl (31.0-35.0); Mean Corpuscular Hemoglobin 28.3 pg (27.0-33.0); Mean Corpuscular Volume 83.6 fL (80.0-98.0); Mean Platelet Volume 10.5 fL (9.4-12.3); Monocytes Absolute Auto 1.2 X10*3/uL (0.1-1.2); Monocytes Percent Auto 10.3 % (2-11); Neutrophils Absolute Auto 8.4 x10*3/uL (2.0-8.3); Neutrophils Percent Auto 72.9 % (45-73); Platelet Count 271 X10*3/uL (160-400); Red Blood Count 4.95 X10*6/uL (4.20-5.50); Red Cell Distribution Width 13.8 % (11.0-16.0); White Blood Count 11.5 X10*3/uL (4.8-10.8)
[2023-02-28 16:28] LABS: Anion Gap 16 (12-20); Blood Urea Nitrogen 9 mg/dL (9-16); Carbon Dioxide 19 mmol/L (22-29); Chloride 109 mmol/L (96-108); Creatinine Clr Calc Pharmacy 57.7; Estimated Glomerular Filt Rate > 60; Glucose Random 103 mg/dL (60-115); Potassium 3.9 mmol/L (3.3-5.1); Sodium 140 mmol/L (135-145)
[2023-02-28 16:42] LABS: Appearance Urine Clear; Color Urine Yellow; Glucose Urine UA Negative (Negative); Leukocyte Esterase Urine Negative (Negative); Nitrite Urine Negative (Negative); PH 5.5 (5.0-9.0); Specific Gravity - Urine <= 1.005 (1.005-1.025); Urine Blood Negative (Negative); Urine Ketones Negative (Negative); Urine Protein Negative (Neg-Trace)
[2023-02-28] MEDS: Acetaminophen 325 MG TABLET 975 MG PO ×2 (17:26→22:03)
[2023-02-28] MEDS: Lidocaine 4 % Patch ADH..PATCH 1 PATCH TRANSDERMA (17:27)
[2023-02-28 17:34] VITALS: BP 142/60; PULSE 78; RESP 16; TEMP 36.5; O2SAT 100
[2023-02-28] MEDS: iohexoL 350 MG/ML 100 ML INFUS..BTL IV (18:35)
[2023-02-28 18:48] VITALS: BP 150/68; PULSE 66; RESP 18; TEMP 36.8; O2SAT 99
--- NOTE | 2023-02-28 21:06 | PC.NURSE ---
waiting for provider with ct result. sitting on stretcher/calm/cooperative. anxious to be dc. family at bedside.
[2023-02-28] MEDS: levoFLOXacin 750 MG TABLET PO (22:16)
[2023-02-28] MEDS: metroNIDAZOLE 500 MG TABLET PO (22:16)
== END 2023-02-28 22:25 | disposition home or self-care (01) ==
PROVIDERS: Physician Assistant Medical; Emergency Provider Emergency Medicine Emergency Medical Services; PCP Nurse Practitioner Primary Care
DX: K57.32 Diverticulitis of large intestine without perforation or abscess without bleeding (principal); M54.50 Low back pain, unspecified; R10.2 Pelvic and perineal pain; M53.3 Sacrococcygeal disorders, not elsewhere classified; Z79.899 Other long term (current) drug therapy
CPT/HCPCS: 36415; 72100; 72220; 74177; 80048; 81003; 85025; 99284; Q9967

== ENCOUNTER 2023-03-27 10:33 | Outpatient (AMB) | payer OTHER, SELFPAY ==
--- NOTE | 2023-03-27 10:36 | A.OFFVIS_ITS ---
Intake Vital Signs 03/27/23 10:39 Height 4 ft 11 in Weight 118 lb 9.739 oz BMI 24.0 BP 139/74 Blood Pressure Location Lt brachial Position Sitting Pulse 69 Intake Visit Reasons: Follow Up Intake Note: Pt presents in office today for her 6 months follow up appointment. CC: Patient was seen in the ER on 03/01 with abdominal and was diagnosed with diverticulitis. Denies having any GI symptoms. Coverstitch Machine Operator Required: Yes Coverstitch Machine Operator Name: Son Information Interpreted: clinical only Accompanied by: Son Allergies Penicillins [PENICILLINS] Allergy (Severe, Verified 03/27/23 10:43) THROAT CLOSES/HIVES HPI Follow Up HPI Details Assessment & Plan (1) Tubular adenoma of colon: Comment: 2022 equals negative scope repeat in 5 years Code(s): D12.6 - Benign neoplasm of colon, unspecified Plan: Bah[place]ian #Stella Live She is here today with a male family member who is supportive. She is agreeable to the 5 year repeat of her colonoscopy since she had a TA in 2019. The procedure was well tolerated. The results were explained and the patient is agreeable to the follow-up interval as stated. The bowel pattern has returned to normal. Education was provided to tell any 1st degree relatives about their findings to be sure that they are screened by age 45. Educated that they will be put on a recall list when it is time for their repeat scope but should they move out of state or away from the hospital they will need to remember along with their primary to repeat the procedure in a timely fashion to avoid any adverse complications. She continues to be stable and doing well on her Creon, omeprazole, colace, and senna. ROV 6 mos. (2) GERD (gastroesophageal reflux disease): Code(s): K21.9 - Gastro-esophageal reflux disease without esophagitis (3) IBS (irritable bowel syndrome): Comment: Well controlled on Creon Code(s): K58.9 - Irritable bowel syndrome without diarrhea Medications: New omeprazole 40 mg PO DAILY@0630 30 caps 6RF Refilled amuczp-acugypny-hxikdie 24,000-76,000 -120,000 unit (Creon) 1 cap PO QID 120 caps 6RF K58.9 - Irritable bowel syndrome without diarrhea sennosides (senna) 17.2 mg (2 x 8.6 mg) PO BEDTIME 30 days 60 caps 6RF constipation K59.00 - Constipation, unspecified docusate sodium (DOK) 100 mg PO BID 60 caps 6RF Discontinued omeprazole 40 mg PO QAM 90 caps 2RF. K21.9 - Gastro-esophageal reflux disease without esophagitis REVIEW OF 02/28/2023 ER NOTES MPRESSION: Unremarkable sacrum/coccyx. CT/CT abdomen pelvis w IV con IMPRESSION: 1.? Colonic diverticulosis with bowel wall thickening and trace pericolonic inflammatory changes involving the sigmoid colon suggesting diverticulitis. 2.? Slightly decreased hepatic attenuation suggesting hepatic steatosis. 3.? Redemonstration of gallbladder wall thickening with calcifications suggesting elements of adenomyomatosis, stable. 4.? Bilateral renal hypodense foci demonstrating fluid attenuation statistically representing cysts. 5.? Redemonstration of calcified uterine fibroid involving the fundus. Independent Historian Clinical information obtained from an independent historian. History obtained from or confirmed by: Other (son) External Record Review External record reviewed: Inpatient record and Outpatient record Prescription Management I considered prescription management with: Pain Medication Chronic Conditions Patient?s care impacted by: Other (diverticulitis) Critical Care Time Critical Care Time Critical Care Time: No Discharge Plan Discharge Clinical Impression: ?Diverticulitis Patient Disposition: Home, Self-Care Instructions:? Diverticulitis (ED), Diverticulitis Diet (ED) Prescriptions: New ? metronidazole 500 mg tablet ?? 500 mg PO TID 7 Days Qty: 20 0RF ? levofloxacin 750 mg tablet ?? 750 mg PO DAILY Qty: 6 0RF TODAY'S VISIT Bahamian #son translates per pt request She is feeling well now and had completed the abx. I have her literature on tics and possible foods to avoid. She likes nuts in chocolate so this is part of the possible problem. They are educated to call the office if she has a return of sx and I will send abx to try to spare her an ER visit. She is PCN allergic. She continues on Creon, omeprazole, colace, and senna. She is [place] and they are having trouble getting them, the [facility] provider mistakenly thought they cancelled. I will try referring them to our speech and Hearing Department; hopefully her insurance will be covered here as that seems to be a limiting factor. Keep May appt. [facility] Medical History (Updated 03/27/23 @ 11:02 by LUZ Stahl) Adenomyomatosis of gallbladder Constipation Diverticulitis GERD (gastroesophageal reflux disease) Hyperlipidemia IBS (irritable bowel syndrome) Tubular adenoma of colon Surgical History History of esophagogastroduodenoscopy (EGD) Hx of colonoscopy Hx of foot surgery Hx of laminectomy Hx of tubal ligation Family History Family/Other No problems noted. Social History Household Members: None Housing: Apartment Do you presently have visiting nurse or other home services: Yes Alcohol intake: never Patient Tobacco Use Status: Never used Tobacco service: No Current occupational status: retired Review of Systems Const Denies fatigue, Denies fever(s), Denies night sweats, Denies poor appetite and Denies weight loss ENT Denies dental pain, Denies dysphagia, Reports hearing loss, Denies mouth pain, Denies odynophagia, Denies throat swelling, Denies tongue swelling and Reports other (Dentition adequate) Card Reports no additional complaints Resp Reports no additional complaints GI Denies abdominal pain, Denies melena, Denies bloating, Denies hematochezia, Reports constipation, Denies GI cramping, Denies dysphagia, Denies excessive flatus, Denies early satiety, Reports heartburn, Denies diarrhea, Denies nausea, Denies odynophagia, Denies vomiting and Denies hematemesis Skin/Breast Denies pruritus, Denies lesions, Denies rash and Denies jaundice Neuro Denies Abnormal speech present Endo Denies fatigue Aller/Immun Denies throat swelling and Denies tongue swelling Physical Exam Vital Signs: Last Vital Signs Pulse 69 03/27/23 10:39 BP 139/74 03/27/23 10:39 BMI result Body Mass Index 24.0 Const General: cooperative, no acute distress, well developed and well groomed Nutritional Appearance: average body habitus and well nourished Orientation/consciousness: oriented to person, oriented to place and oriented to time Limitations: language barrier HEENT Head: Yes normocephalic and Yes atraumatic Eyes General: appearance normal, both eyes and all related structures Pupils: Equal, round and reactive pupils present Neck Neck: Yes normal visual inspection and Yes no lymphadenopathy Thyroid: Thyroid normal Resp Effort & Inspection: normal respiratory effort and able to speak in complete sentences Auscultation: clear to auscultation bilaterally Cardio Rate: regular rate Rhythm: regular rhythm Heart sounds: Normal, physiologic split S2 sound present Peripheral pulses: radial pulses present and posterior tibial pulses present GI Inspection: No distended and No Abdominal panniculus present Palpation (GI): Soft to palpation, nontender, no guarding, not rigid and No hepatosplenomegaly present Percussion: Yes normal to percussion Auscultation: normal bowel sounds Rectal Exam - Female: deferred Skin General skin exam: no rashes or lesions noted, turgor normal, skin not dry, no jaundice, No spider nevi and no striae Rashes: no rashes Nails: normal Neuro General: oriented to person, oriented to place and oriented to time Cranial nerves: Yes Equal, round and reactive pupils present Speech: No Abnormal speech present Extrem General: Yes normal to inspection, No clubbing, No cyanosis and No edema Psych Appearance: grossly normal and well kempt Mental Status: mental status grossly normal Speech and movement: Normal speech and movement present Affect: normal affect Attitude: cooperative Thought process: Normal thought process present and not confabulating Thought content: Normal thought content present Insight: Limited insight present (Psych) Judgement: Limited judgement present (Psych) Assessment & Plan Assessment & Plan (1) Diverticulitis: Code(s): K57.92 - Diverticulitis of intestine, part unspecified, without perforation or abscess without bleeding Plan: Bahamian #son translates per pt request She is feeling well now and had completed the abx. I have her literature on tics and possible foods to avoid. She likes nuts in chocolate so this is part of the possible problem. They are educated to call the office if she has a return of sx and I will send abx to try to spare her an ER visit. She is PCN allergic. She continues on Creon, omeprazole, colace, and senna. I thoroughly review her stooling and she says that she has multiple soft stools and that she is compliant with both her senna and her Colace twice a day. I educate them that keeping the stool moving as 1 of the ways prevented diverticulitis and that the research is mixed but some people find that helpful to avoid things that her difficult to digest such as seeds or nuts. She is [place] and they are having trouble getting them, the [facility] provider mistakenly thought they cancelled. I will try referring them to our speech and Hearing Department; hopefully her insurance will be covered here as that seems to be a limiting factor. Keep May appt. (2) IBS (irritable bowel syndrome): Comment: Well controlled on Creon Code(s): K58.9 - Irritable bowel syndrome without diarrhea (3) GERD (gastroesophageal reflux disease): Code(s): K21.9 - Gastro-esophageal reflux disease without esophagitis (4) Abdominal cramping: Code(s): R10.9 - Unspecified abdominal pain (5) Constipation: Code(s): K59.00 - Constipation, unspecified (6) Hearing loss: Code(s): H91.90 - Unspecified hearing loss, unspecified ear Orders: Referrals Speech and Hearing Referral H91.90 - Unspecified hearing loss, unspecified ear Medications: New sennosides (senna) 17.2 mg (2 x 8.6 mg) PO BEDTIME 60 tabs 6RF constipation K59.00 - Constipation, unspecified Refilled dgchoi-fwhkjpgg-nsauhip 24,000-76,000 -120,000 unit (Creon) 1 cap PO QID 120 caps 6RF K58.9 - Irritable bowel syndrome without diarrhea sennosides (senna) 17.2 mg (2 x 8.6 mg) PO BEDTIME 30 days 60 caps 6RF constipation K59.00 - Constipation, unspecified omeprazole 40 mg PO DAILY@0630 30 caps 6RF Discontinued levofloxacin Discontinued Reason: Patient Completed Course 750 mg PO DAILY 6 tabs 0RF omeprazole 40 mg PO QAM 90 caps 2RF K21.9 - Gastro-esophageal reflux disease without esophagitis Coding Level of Care Code Est Pt Level 3 (35690) Diagnoses Diverticulitis K57.92 IBS (irritable bowel syndrome) K58.9 GERD (gastroesophageal reflux disease) K21.9 Abdominal cramping R10.9 Constipation K59.00 Hearing loss H91.90
[2023-03-27 10:39] VITALS: BP 139/74; PULSE 69; BMI 24.0
== END 2023-03-27 11:12 | disposition home or self-care (01) ==
PROVIDERS: PCP Nurse Practitioner Primary Care; Visit Provider Nurse Practitioner
DX: K57.92 Diverticulitis of intestine, part unspecified, without perforation or abscess without bleeding (principal); K58.9 Irritable bowel syndrome, unspecified; K21.9 Gastro-esophageal reflux disease without esophagitis; R10.9 Unspecified abdominal pain; K59.00 Constipation, unspecified; H91.90 Unspecified hearing loss, unspecified ear
CPT/HCPCS: 99213

== ENCOUNTER → 2023-03-27 10:33 | Outpatient (BNVA) | payer OTHER, SELFPAY | PROVIDERS: PCP Nurse Practitioner Primary Care; Visit Provider Nurse Practitioner | DX: K57.92 Diverticulitis of intestine, part unspecified, without perforation or abscess without bleeding (principal); K58.9 Irritable bowel syndrome, unspecified; K21.9 Gastro-esophageal reflux disease without esophagitis; K59.00 Constipation, unspecified; R10.9 Unspecified abdominal pain; H91.90 Unspecified hearing loss, unspecified ear | CPT/HCPCS: 99212 ==

== ENCOUNTER 2023-05-15 11:09 | Outpatient (AMB) | payer OTHER, SELFPAY ==
--- NOTE | 2023-05-15 11:15 | A.OFFVIS_ITS ---
Intake Vital Signs 05/15/23 11:17 Height 4 ft 11 in Weight 114 lb 3.191 oz BMI 23.1 BP 142/67 H Blood Pressure Location Lt brachial Position Sitting Pulse 66 Intake Visit Reasons: 6 month follow up Intake Note: Pt presents in office today for her 6 months follow up of IBS. CC: Patient reports doing well today. Denies having any new GI symptoms or concerns. National Business Director Required: Yes National Business Director Name: Son Information Interpreted: clinical only Accompanied by: Son Allergies Penicillins [PENICILLINS] Allergy (Severe, Verified 05/15/23 11:19) THROAT CLOSES/HIVES HPI 6 month follow up HPI Details Assessment & Plan (1) Diverticulitis: Code(s): K57.92 - Diverticulitis of intestine, part unspecified, without perforation or abscess without bleeding Plan: Korean #son translates per pt request She is feeling well now and had completed the abx. I have her literature on tics and possible foods to avoid. She likes nuts in chocolate so this is part of the possible problem. They are educated to call the office if she has a return of sx and I will send abx to try to spare her an ER visit. She is PCN allergic. She continues on Creon, omeprazole, colace, and senna. I thoroughly review her stooling and she says that she has multiple soft stools and that she is compliant with both her senna and her Colace twice a day. I educate them that keeping the stool moving as 1 of the ways prevented diverticulitis and that the research is mixed but some people find that helpful to avoid things that her difficult to digest such as seeds or nuts. She is [place] and they are having trouble getting them, the [facility] provider mistakenly thought they cancelled. I will try referring them to our speech and Hearing Department; hopefully her insurance will be covered here as that seems to be a limiting factor. Keep May appt. (2) IBS (irritable bowel syndrome): Comment: Well controlled on Creon Code(s): K58.9 - Irritable bowel syndrome without diarrhea (3) GERD (gastroesophageal reflux diseas e): Code(s): K21.9 - Gastro-esophageal reflux disease without esophagitis (4) Abdominal cramping: Code(s): R10.9 - Unspecified abdominal pain (5) Constipation: Code(s): K59.00 - Constipation, unspecified (6) Hearing loss: Code(s): H91.90 - Unspecified hearing loss, unspecified ear Orders: Referrals Speech and Hearing Referral H91.90 - Unspecifi ed hearing loss, u nspecified ear Medications: New sennosides (senna) 17.2 mg (2 x 8.6 m g) PO BEDTIME 60 t abs 6RF constipati on K59.00 - Constipat ion, unspecified Refilled hjqync-lvmpsdwy-ip ylase 24,000-76,00 0 -120,000 unit (C reon) 1 cap PO QID 120 caps 6RF K58.9 - Irritable bowel syndrome wit hout diarrhea sennosides (senna) 17.2 mg (2 x 8.6 m g) PO BEDTIME 30 d ays 60 caps 6RF co nstipation K59.00 - Constipat ion, unspecified omeprazole 40 mg PO DAILY@06 30 30 caps 6RF Discontinued levofloxacin Di scontinued Reason: Patient Complete d Course 750 mg PO DAILY 6 tabs 0RF omeprazole 40 mg PO QAM 90 c aps 2RF K21.9 - Gastro-eso phageal reflux dis ease without esoph agitis TODAY'S VISIT Korean #son translates per pt request They just received the paper for hearing evaluations and they need to call to get an appt (insurance determined). She continues to do well on her GI regimen. She continues on Creon, omeprazole, colace, and senna ROV 6 mos. [facility] Medical History IBS (irritable bowel syndrome) Tubular adenoma of colon Diverticulitis Hyperlipidemia Adenomyomatosis of gallbladder Constipation GERD (gastroesophageal reflux disease) Surgical History Hx of laminectomy Hx of colonoscopy Hx of foot surgery History of esophagogastroduodenoscopy (EGD) Hx of tubal ligation Family History Family/Other No problems noted. Social History Household Members: None Housing: Apartment Do you presently have visiting nurse or other home services: Yes Alcohol intake: never Patient Tobacco Use Status: Never used Tobacco service: No Current occupational status: retired Review of Systems Const Denies fatigue, Denies fever(s), Denies night sweats, Denies poor appetite and Denies weight loss ENT Reports Normal hearing present, Denies dental pain, Denies dysphagia, Denies hearing loss, Denies mouth pain, Denies odynophagia, Denies throat swelling, Denies tongue swelling and Reports other (Dentition adequate) Card Reports no additional complaints Resp Reports no additional complaints GI Denies abdominal pain, Denies melena, Denies bloating, Denies hematochezia, Reports constipation, Denies GI cramping, Denies dysphagia, Denies excessive flatus, Denies early satiety, Reports heartburn, Denies diarrhea, Denies nausea, Denies odynophagia, Denies vomiting and Denies hematemesis Skin/Breast Denies pruritus, Denies lesions, Denies rash and Denies jaundice Neuro Reports Normal hearing present and Denies Abnormal speech present Endo Denies fatigue Aller/Immun Denies throat swelling and Denies tongue swelling Physical Exam Vital Signs: Last Vital Signs Pulse 66 05/15/23 11:17 BP 142/67 H 05/15/23 11:17 BMI result Body Mass Index 23.1 Const General: cooperative, no acute distress, well developed and well groomed Nutritional Appearance: average body habitus and well nourished Orientation/consciousness: oriented to person, oriented to place and oriented to time Limitations: language barrier HEENT Head: Yes normocephalic and Yes atraumatic Eyes General: appearance normal, both eyes and all related structures Pupils: Equal, round and reactive pupils present Neck Neck: Yes normal visual inspection and Yes no lymphadenopathy Thyroid: Thyroid normal Resp Effort & Inspection: normal respiratory effort and able to speak in complete sentences Auscultation: clear to auscultation bilaterally Cardio Rate: regular rate Rhythm: regular rhythm Heart sounds: Normal, physiologic split S2 sound present Peripheral pulses: radial pulses present and posterior tibial pulses present GI Inspection: No distended and No Abdominal panniculus present Palpation (GI): Soft to palpation, nontender, no guarding, not rigid and No hepatosplenomegaly present Percussion: Yes normal to percussion Auscultation: normal bowel sounds Rectal Exam - Female: deferred Skin General skin exam: no rashes or lesions noted, turgor normal, skin not dry, no jaundice, No spider nevi and no striae Rashes: no rashes Nails: normal Neuro General: oriented to person, oriented to place and oriented to time Cranial nerves: Yes Equal, round and reactive pupils present and Yes Normal hearing present Speech: No Abnormal speech present Extrem General: Yes normal to inspection, No clubbing, No cyanosis and No edema Psych Appearance: grossly normal and well kempt Mental Status: mental status grossly normal Speech and movement: Normal speech and movement present Affect: normal affect Attitude: cooperative Thought process: Normal thought process present and not confabulating Thought content: Normal thought content present Insight: Limited insight present (Psych) Judgement: Limited judgement present (Psych) Assessment & Plan Assessment & Plan (1) Constipation: Code(s): K59.00 - Constipation, unspecified Plan: Korean #son translates per pt request They just received the paper for hearing evaluations and they need to call to get an appt (insurance determined). She continues to do well on her GI regimen. She continues on Creon, omeprazole, colace, and senna ROV 6 mos. (2) IBS (irritable bowel syndrome): Comment: Well controlled on Creon Code(s): K58.9 - Irritable bowel syndrome without diarrhea (3) Diverticulitis: Code(s): K57.92 - Diverticulitis of intestine, part unspecified, without perforation or abscess without bleeding Coding Level of Care Code Est Pt Level 3 (82829) Diagnoses Constipation K59.00 IBS (irritable bowel syndrome) K58.9 Diverticulitis K57.92
[2023-05-15 11:17] VITALS: BP 142/67; PULSE 66; BMI 23.1
== END 2023-05-15 11:35 | disposition home or self-care (01) ==
PROVIDERS: Visit Provider Nurse Practitioner
DX: K59.00 Constipation, unspecified (principal); K58.9 Irritable bowel syndrome, unspecified; K57.92 Diverticulitis of intestine, part unspecified, without perforation or abscess without bleeding
CPT/HCPCS: 99213

== ENCOUNTER → 2023-05-15 11:09 | Outpatient (BNVA) | payer OTHER, SELFPAY | PROVIDERS: Visit Provider Nurse Practitioner | DX: K58.9 Irritable bowel syndrome, unspecified (principal); K59.00 Constipation, unspecified; K57.92 Diverticulitis of intestine, part unspecified, without perforation or abscess without bleeding | CPT/HCPCS: 99212 ==

== ENCOUNTER 2023-07-11 11:37 | Emergency (ER) | payer OTHER, SELFPAY ==
--- NOTE | ~2023-07-11 | CT_ITS ---
EXAMINATION: CT ABDOMEN AND PELVIS WITH CONTRAST CLINICAL INFORMATION: Abdominal pain, history of diverticulitis. COMPARISON: CT abdomen/pelvis 02/28/2023. TECHNIQUE: Multidetector volumetric images were obtained from the superior aspect of the liver through the pubic symphysis following administration 85 mL of Omnipaque 350 intravenous contrast. Sagittal and coronal reformatted images were obtained on the technologist's workstation. Oral contrast: No This CT examination was performed using dose optimization techniques as appropriate, variously including the following: *Automated exposure control *Adjustment of mA and/or kV according to patient size (this includes techniques or standardized protocols for targeted exams where dose is matched to indication/reason for exam; i.e. extremities or head) *Use of iterative reconstruction technique DLP: 301 mGy-cm FINDINGS: LUNG BASES: The visualized lung bases are unremarkable. LIVER, GALLBLADDER, AND BILIARY TREE: The liver is normal in size, shape, and attenuation. No focal hepatic lesion or biliary ductal dilatation is present. Chronic fundal gallbladder wall thickening with associated calcifications. No significant inflammatory changes to suspect acute cholecystitis. PANCREAS: Unremarkable. SPLEEN: Unremarkable. ADRENAL GLANDS: Unremarkable. KIDNEYS AND URETERS: The kidneys are normal in size, shape, and attenuation. A few too small to characterize cortical hypodensities are statistically favored to represent simple cysts for which no imaging follow-up is recommended. No hydronephrosis, hydroureter, or calculi seen. No perinephric stranding. BLADDER: Decompressed limiting evaluation. No significant perivesical fat stranding or free fluid. GASTROINTESTINAL TRACT: The stomach and the small bowel are nondilated. Equivocal wall thickening of the gastric rugae. Normal appendix. Colonic diverticulosis with wall thickening and mild pericolonic fatty haziness in the sigmoid (images 46 through 50, series 3). No bowel obstruction. No pneumatosis or free air. No organized extraluminal collection. ABDOMINAL WALL: No significant hernia is appreciated. LYMPH NODES: No lymphadenopathy. VASCULAR: Severe atherosclerotic disease. Abdominal aorta is normal in caliber. PELVIC VISCERA: Redemonstration of coarse calcification in the fundus of the uterus most likely related with a degenerative fibroid. OSSEOUS STRUCTURES: No acute or aggressive appearing osseous findings. Degenerative changes of the spine. CT/CT abdomen pelvis w IV con IMPRESSION: 1. Findings most consistent with acute uncomplicated diverticulitis of the sigmoid. If not recently obtained, correlation with outpatient colonoscopy is recommended after resolution of the acute flare to evaluate for underlying lesions. 2. Equivocal wall thickening of the gastric rugae which could be seen in the setting of gastritis. 3. Additional chronic findings as above.
[2023-07-11 11:47] VITALS: BP 135/99; PULSE 92; RESP 16; TEMP 36.4; O2SAT 98; BMI 28.0
--- NOTE | 2023-07-11 11:49 | ED_ITS ---
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 Related Data Home Medications Medication Instructions Recorded Confirmed acetaminophen 500 mg tablet 500 mg PO Q6H PRN Pain 10/03/20 10/27/22 (Tylenol Extra Strength) atorvastatin 40 mg tablet 40 mg PO BEDTIME 10/03/20 10/27/22 quetiapine 25 mg tablet 12.5 mg PO BEDTIME 10/03/20 10/27/22 fluticasone propionate 50 1 spray intranasal DAILY 10/13/20 10/27/22 mcg/actuation nasal spray,suspension calcium carbonate 200 mg calcium 200 mg PO BID 03/27/23 (500 mg) chewable tablet (Brian-Gest Antacid) Previous Rx's Medication Instructions Recorded ascorbic acid (vitamin C) 500 mg 500 mg PO DAILY #30 caps 10/29/22 capsule,extended release (Vitamin C) ferrous sulfate 325 mg (65 mg 325 mg PO DAILY #30 tabs 10/29/22 iron) tablet (Iron (ferrous sulfate)) docusate sodium 100 mg capsule 100 mg PO BID #60 caps 11/21/22 (DOK) [id number]-[id number] 1 cap PO QID #120 caps 03/27/23 24,000-76,000-120,000 unit capsule,delayed rel (Creon) omeprazole 40 mg capsule,delayed 40 mg PO DAILY@0630 #30 caps 03/27/23 release sennosides 8.6 mg capsule (senna) 17.2 mg (2 x 8.6 mg) PO BEDTIME 03/27/23 constipation 30 days #60 caps cefdinir 300 mg capsule 300 mg PO BID 10 days #20 caps 07/11/23 Allergies Allergy/AdvReac Type Severity Reaction Status Date / Time Penicillins [PENICILLINS] Allergy Severe THROAT Verified 05/15/23 11:19 CLOSES/HIVES Review of Systems Review of Systems Pertinent positives and negatives as stated in HPI PMFSH Past Medical History Source: nursing notes reviewed Medical History IBS (irritable bowel syndrome) Tubular adenoma of colon Diverticulitis Hyperlipidemia Adenomyomatosis of gallbladder Constipation GERD (gastroesophageal reflux disease) Surgical History Hx of laminectomy Hx of colonoscopy Hx of foot surgery History of esophagogastroduodenoscopy (EGD) Hx of tubal ligation Family History Family History Family/Other No problems noted. Social History Social History Household Members: None Housing: Apartment Do you presently have visiting nurse or other home services: Yes Alcohol intake: never Comment: 1 Patient Tobacco Use Status: Never used Tobacco Advance Directives: No Advance Directives Information Provided: No service: No Current occupational status: retired Physical Exam ED Vital Signs: Vital Signs - 24 hr 07/11/23 11:47 07/11/23 21:18 07/11/23 23:08 Temperature 97.6 F 98.1 F 98.4 F Pulse Rate 92 98 72 Respiratory Rate 16 18 16 Blood Pressure 135/99 H 164/70 H 157/78 H Pulse Oximetry 98 94 99 Oxygen Delivery Method Room Air Room Air Room Air BMI result Body Mass Index 28.0 VITAL SIGNS: Reviewed. GENERAL: Well developed, well nourished, in no acute distress. HEAD: Normocephalic/atraumatic EYES: PERRLA, EOMI LUNGS: Normal breath sounds. No adventitious sounds or accessory muscle use. SpO2<98> CARDIOVASCULAR: Regular rate and rhythm without noted murmurs ABDOMEN: Soft, mild tenderness to palpation left lower quadrant, non-distended with bowel sounds. MUSCULOSKELETAL: No tenderness, deformities, or effusions noted on gross inspection. EXTREMITIES: No cyanosis, clubbing or edema. SKIN: Inspection of the skin reveals no rashes NEUROLOGIC: Alert and oriented x 4. Strength and sensation to light touch were grossly intact x 4. Course Course Course Narrative: This is an RME: Additional HPI, ROS, PE not included below will be deferred to primary provider 73 year old Norwegian-speaking female with history significant for IBS, diverticulitis, tubular adenoma of colon, GERD, HDL, and left rotator cuff tendinitis presents to the ED today with complaints of lower abdominal pain for the last 2 days. Patient reporting some chills, no fevers. Also endorsing nausea, no vomiting, diarrhea. Has had some constipation. No urinary symptoms. Plan: Labs, UA, patient will likely need a CT scan with IV contrast, will place order but unable to have this done until patient has a room and an IV. Medical Decision Making Medical Decision Making [facility] Narrative: 73-year-old female with history and clinical presentation, DDX: Diverticulitis, renal colic, UTI. I reviewed all investigations and hematologic indices are negative for leukocytosis rule of shift, there is no anemia or thrombocytopenia. Chemistry indices are negative for CHRISTOS/electrolyte abnormalities/liver enzyme derangements. Urinalysis demonstrates moderate leukocyte esterase but in the presence RBCs unlikely to be infection. CT scan does not demonstrate any other acute findings other than uncomplicated diverticulitis. Suspect that there is a possibility that the levofloxacin and Flagyl that have been prescribed are not getting rid of the infection, patient has a penicillin allergy so cannot use Augmentin, will discharge after giving 1 g of Rocephin on cefdinir for 10 days. My interpretation is that patient has known diverticulitis may not be resolving with levofloxacin/Flagyl and I will switch her medications. Differential Diagnosis Differential Diagnoses: The differential diagnosis associated with the presentation includes Please see the discussion above Admission/Observation Consideration of admission/observation: Escalation of care including admission/observation considered Please see the discussion above Lab Data [facility] Lab Attestation statement: I reviewed the patient's lab results. Please see the discussion above 07/11/23 13:42 07/11/23 13:42 Labs: Lab Results 07/11/23 07/11/23 Range/Units 13:42 20:42 WBC 9.8 (4.8-10.8) X10*3/uL RBC 5.25 (4.20-5.50) X10*6/uL Hgb 15.2 (12.0-16.0) g/dl Hct 44.9 (37.0-47.0) % MCV 85.5 (80.0-98.0) fL MCH 29.0 (27.0-33.0) pg MCHC 33.9 (31.0-35.0) g/dl RDW 13.5 (11.0-16.0) % Plt Count 248 (160-400) X10*3/uL MPV 10.9 (9.4-12.3) fL Immature Gran % (Auto) 0.3 (0.0-0.4) % Neut % (Auto) 69.0 (45-73) % Lymph % (Auto) 17.2 L (20-40) % Banks % (Auto) 11.6 H (2-11) % Eos % (Auto) 1.4 (0-4) % Baso % (Auto) 0.5 (0-2) % Lymph # (Auto) 1.7 (1.2-4.9) X10*3/uL [place] # (Auto) 1.1 (0.1-1.2) X10*3/uL Eos # (Auto) 0.1 (0.0-0.4) X10*3/uL Baso # (Auto) 0.1 (0.0-0.2) X10*3/uL Abs Immat Gran (auto) 0.03 (0.00-0.03) X10*3/uL Absolute Neuts (auto) 6.8 (2.0-8.3) x10*3/uL Absolute Nucleated RBC 0.000 (0.0-0.012) X10*3/uL Nucleated RBC % (auto) 0.0 (0.0-0.2) /100WBC Sodium 140 (135-145) mmol/L Potassium 4.3 (3.3-5.1) mmol/L Chloride 106 (96-108) mmol/L Carbon Dioxide 25 (22-29) mmol/L Anion Gap 13 (12-20) BUN 8 L (9-16) mg/dL Creatinine 0.86 (0.5-1.4) mg/dL Estim Creat Clear Calc 42.1 Estimated GFR > 60 Random Glucose 100 (60-115) mg/dL Calcium 10.5 H (8.4-10.2) mg/dL Total Bilirubin 0.6 (0.0-1.0) mg/dL Direct Bilirubin 0.3 (0.0-0.5) mg/dL AST 20 (5-31) U/L ALT 16 (0-31) U/L Alkaline Phosphatase 110 (39-117) U/L Total Protein 9.0 H (6.5-8.0) g/dL Albumin 4.6 (3.5-5.0) g/dL Lipase 12 (8-78) U/L Urine Color Dark Yellow Urine Appearance Clear Urine pH 5.0 (5.0-9.0) Ur Specific [place] 1.025 (1.005-1.025) Urine Protein Trace (Neg-Trace) mg/dL Urine Glucose (UA) Negative (Negative) mg/dL Urine Ketones 15 (Negative) mg/dL Urine Blood Negative (Negative) Urine Nitrite Negative (Negative) Ur Leukocyte Esterase Moderate (2+) H (Negative) Urine RBC 6-10 H (0-2) /HPF Urine WBC 0-5 (0-5) /HPF Ur Squamous Epith Cells 3-5 (0-2) /HPF Calcium Oxalate Crystal Present Urine Bacteria None Seen (None Seen) Hyaline Casts 0-2 (0-2) /LPF Radiology Impression Discussion of test interpretation with radiology: I have reviewed the radiologist's reading. Radiologist Impression: Please see the discussion above External Record Review External record reviewed: Outpatient record, Prior outpatient labs and Prior outpatient radiology Medications Administered Discontinued Medications Generic Name Dose Route Start Last Admin Trade Name Freq PRN Reason Stop Dose Admin Iohexol 85 ml 07/11/23 21:07 07/11/23 21:09 Iohexol 350 Mg/Ml 100 Ml Infus..Btl IV 07/11/23 21:08 85 ml ONCE ONE Administration Discharge Plan Discharge Clinical Impression: Diverticulitis Patient Disposition: Home, Self-Care Instructions: Diverticulitis (ED), Diverticulitis Diet (ED) Additional Instructions: 1. Reanudar todos los medicamentos caseros. 2. [place] antibi?ticos cambiar?n de levofloxacina/metronidazol a un solo medicamento que jose luis? dos veces al d?a arnaldo 10 d?as. 3. Junior un seguimiento con ma m?dico de atenci?n primaria en los pr?ximos 1 o 2 d?as. Regrese a la gayla de emergencias si los s?ntomas empeoran. 1. Resume all home medications. 2. Your antibiotics will be changing from levofloxacin/metronidazole to a single medication which she will take for twice a day for 10 days. 3. Please follow-up with your primary care doctor in the next 1-2 days. Return to the ER for any worsening symptoms. Prescriptions: New cefdinir 300 mg capsule 300 mg PO BID 10 Days Qty: 20 0RF Discontinued levofloxacin 500 mg tablet 500 mg PO DAILY Qty: 10 0RF metronidazole 500 mg tablet 500 mg PO TID 10 Days Qty: 30 0RF No Action ferrous sulfate [Iron (ferrous sulfate)] 325 mg (65 mg iron) tablet 325 mg PO DAILY Qty: 30 1RF ascorbic acid (vitamin C) [Vitamin C] 500 mg capsule, extended release 500 mg PO DAILY Qty: 30 0RF fluticasone propionate 50 mcg/actuation spray,suspension 1 spray intranasal DAILY Rx Instructions: administer into each nostril atorvastatin 40 mg tablet 40 mg PO BEDTIME acetaminophen [Tylenol Extra Strength] 500 mg tablet 500 mg PO Q6H PRN (Reason: Pain) quetiapine 25 mg tablet 12.5 mg PO BEDTIME docusate sodium [DOK] 100 mg capsule 100 mg PO BID Qty: 60 6RF calcium carbonate [Brian-Gest Antacid] 200 mg calcium (500 mg) tablet,chewable 200 mg PO BID Creon 24,000-76,000 -120,000 unit capsule,delayed release(DR/EC) 1 cap PO QID Qty: 120 6RF senna 8.6 mg capsule 17.2 mg PO BEDTIME 30 Days Qty: 60 6RF omeprazole 40 mg capsule,delayed release(DR/EC) 40 mg PO DAILY@0630 Qty: 30 6RF Referrals: Aster Valle NP [Primary Care Provider] - Chayo Yo ANP-C [Nurse Practitioner] - Print Language: Norwegian
[2023-07-11 13:51] LABS: Basophils Absolute Auto 0.1 X10*3/uL (0.0-0.2); Basophils Percent Auto 0.5 % (0-2); Eosinophils Absolute Auto 0.1 X10*3/uL (0.0-0.4); Eosinophils Percent Auto 1.4 % (0-4); Hematocrit 44.9 % (37.0-47.0); Hemoglobin 15.2 g/dl (12.0-16.0); Imm Gran Abs Auto 0.03 X10*3/uL (0.00-0.03); Imm Gran Pct Auto 0.3 % (0.0-0.4); Lymphocytes Absolute Auto 1.7 X10*3/uL (1.2-4.9); Lymphocytes Percent Auto 17.2 % (20-40); MANUAL DIFF FLAG NO; Mean Corpuscular HGB Conc 33.9 g/dl (31.0-35.0); Mean Corpuscular Volume 85.5 fL (80.0-98.0); Mean Platelet Volume 10.9 fL (9.4-12.3); Monocytes Absolute Auto 1.1 X10*3/uL (0.1-1.2); Monocytes Percent Auto 11.6 % (2-11); Neutrophils Absolute Auto 6.8 x10*3/uL (2.0-8.3); Platelet Count 248 X10*3/uL (160-400); Red Blood Count 5.25 X10*6/uL (4.20-5.50); Red Cell Distribution Width 13.5 % (11.0-16.0); White Blood Count 9.8 X10*3/uL (4.8-10.8)
[2023-07-11 14:12] LABS: Anion Gap 13 (12-20); Blood Urea Nitrogen 8 mg/dL (9-16); Carbon Dioxide 25 mmol/L (22-29); Chloride 106 mmol/L (96-108); Creatinine Clr Calc Pharmacy 42.1; Estimated Glomerular Filt Rate > 60; Glucose Random 100 mg/dL (60-115); Potassium 4.3 mmol/L (3.3-5.1); Sodium 140 mmol/L (135-145)
[2023-07-11 14:13] LABS: Alanine Aminotransferase 16 U/L (0-31); Albumin Level 4.6 g/dL (3.5-5.0); Alkaline Phosphatase 110 U/L (39-117); Aspartate Amino Transferase 20 U/L (5-31); Bilirubin Direct 0.3 mg/dL (0.0-0.5); Bilirubin Total 0.6 mg/dL (0.0-1.0); Calcium 10.5 mg/dL (8.4-10.2); Lipase 12 U/L (8-78)
[2023-07-11 21:05] LABS: Appearance Urine Clear; Color Urine Dark Yellow; Glucose Urine UA Negative (Negative); Leukocyte Esterase Urine Moderate (2+) (Negative); Nitrite Urine Negative (Negative); Specific Gravity - Urine 1.025 (1.005-1.025); UMIC TRIGGER UACC YES; Urine Blood Negative (Negative); Urine Ketones 15 mg/dL (Negative); Urine Protein Trace mg/dL (Neg-Trace)
[2023-07-11] MEDS: iohexoL 350 MG/ML 100 ML INFUS..BTL 85 ML IV (21:09)
[2023-07-11 21:18] VITALS: BP 164/70; PULSE 98; RESP 18; TEMP 36.7; O2SAT 94
[2023-07-11 21:22] LABS: Bacteria Urine None Seen (None Seen); Calcium Oxalate Crystals Urine Present; Hyaline Casts Urine 0-2 /LPF (0-2); WBC Urine 0-5 /HPF (0-5)
[2023-07-11 23:08] VITALS: BP 157/78; PULSE 72; RESP 16; TEMP 36.9; O2SAT 99
[2023-07-11] MEDS: cefTRIAXone sodium 1 GM in 0.9 % Sodium Chloride 50 ML IV (23:24)
[2023-07-11] MEDS: Ibuprofen 400 MG TABLET PO (23:30)
[2023-07-11] MEDS: Acetaminophen 325 MG TABLET 975 MG PO (23:30)
[2023-07-11] MEDS: Ondansetron ODT 4 MG TAB.RAPDIS TRANSLINGU (23:34)
== END 2023-07-12 00:18 | disposition home or self-care (01) ==
PROVIDERS: Physician Assistant Medical; Emergency Provider Student in an Organized Health Care Education/Training Program; PCP Nurse Practitioner Primary Care
DX: K57.32 Diverticulitis of large intestine without perforation or abscess without bleeding (principal); R10.32 Left lower quadrant pain
CPT/HCPCS: 36415; 74177; 80048; 80076; 81001; 83690; 85025; 96365; 99284; J0696; Q9967

== ENCOUNTER 2023-08-07 09:13 | Outpatient (AMB) | payer OTHER, SELFPAY ==
--- NOTE | 2023-08-07 09:17 | A.OFFVIS_ITS ---
Intake Vital Signs 08/07/23 09:19 Height 4 ft 11 in Weight 108 lb BMI 21.8 Intake Visit Reasons: hospital follow up Intake Note: Patient presents to in office visit today in follow up of diverticulitis. CC: Patient was seen in the emergency room on 07/11 with diverticulitis. Ecmo Specialist Required: Yes Ecmo Specialist Name: son Accompanied by: Son Allergies Penicillins [PENICILLINS] Allergy (Severe, Verified 08/07/23 09:22) THROAT CLOSES/HIVES Medication List - Last Reconciled 08/07/23 by LUZ Stahl acetaminophen (Tylenol Extra Strength) 500 mg PO Q6H PRN ascorbic acid (vitamin C) ER (Vitamin C) 500 mg PO DAILY atorvastatin 40 mg PO BEDTIME calcium carbonate (Brian-Gest Antacid) 200 mg PO BID docusate sodium (DOK) 100 mg PO BID ferrous sulfate (Iron (ferrous sulfate)) 325 mg PO DAILY fluticasone propionate 50 mcg/actuation 1 spray intranasal DAILY inulin (Fiber Gummies) grams PO [id number]-[id number]-agesocc 24,000-76,000 -120,000 unit (Creon) 1 cap PO QID omeprazole 40 mg PO DAILY@0630 quetiapine 12.5 mg PO BEDTIME sennosides (senna) 25.8 mg (3 x 8.6 mg) PO BEDTIME 30 days HPI hospital follow up HPI Details Assessment & Plan (1) Constipation: Code(s): K59.00 - Constipation, unspecified Plan: Israeli #son translates per pt request They just received the paper for hearing evaluations and they need to call to get an appt (insurance determined). She continues to do well on her GI regimen. She continues on Creon, omeprazole, colace, and senna ROV 6 mos. (2) IBS (irritable bowel syndrome): Comment: Well controlled on Creon Code(s): K58.9 - Irritable bowel syndrome without diarrhea (3) Diverticulitis: Code(s): K57.92 - Diverticulitis of intestine, part unspecified, without perforation or abscess without bleeding REVIEW OF ER RECORDS 07/11/2023 edical Decision Making MDM Narrative: 73-year-old female with history and clin ical presentation, DDX: Diverticulitis, renal colic, UTI. I reviewed all investigations and hematologic indices are negative for leukocytosis rule of shift, there is no anemia or thrombocytopenia. Chemistry indices are negative for CHRISTOS/electrolyte abnormalities/liver enzyme derangement s. Urinalysis demonstrates moderate leukocyte esterase but in the presence RBCs unlikely to be infection. CT scan does not demonstrate any other acute findings other than uncomplicated diverticulitis. Suspect that there is a possibility that the levofloxacin and Flagyl that have been prescribed are not getting rid of the infection, patient has a penicillin allergy so cannot use Augmentin, will discharge after giving 1 g of Rocephin on cefdinir for 10 days. My interpretation is that patient has known diverticulitis may not be resolving with levofloxacin/Flagyl and I will switch her medications. . Resume all home medications. 2. Your antibiotics will be changing fro m levofloxacin/metronidazole to a single medication which she will take for twice a day for 10 days. 3. Please follow-up with your primary ca re doctor in the next 1-2 days. Return to the ER for any worsening symptoms. Prescriptions: New cefdinir 300 mg capsule 300 mg PO BID 10 Days Qty: [address] ABDOMEN PELVIS 07/11/23 FINDINGS: LUNG BASES: The visualized lung bases are unremarkable. LIVER, GALLBLADDER, AND BILIARY TREE: The liver is normal in size, shape, and attenuation. No focal hepatic lesion or biliary ductal dilatation is present. Chronic fundal gallbladder wall thickening with associated calcifications. No significant inflammatory changes to suspect acute cholecystitis. PANCREAS: Unremarkable. SPLEEN: Unremarkable. ADRENAL GLANDS: Unremarkable. KIDNEYS AND URETERS: The kidneys are normal in size, shape, and attenuation. A few too small to characterize cortical hypodensities are statistically favored to represent simple cysts for which no imaging follow-up is recommended. No hydronephrosis, hydroureter, or calculi seen. No perinephric stranding. BLADDER: Decompressed limiting evaluation. No significant perivesical fat stranding or free fluid. GASTROINTESTINAL TRACT: The stomach and the small bowel are nondilated. Equivocal wall thickening of the gastric rugae. Normal appendix. Colonic diverticulosis with wall thickening and mild pericolonic fatty haziness in the sigmoid (images 46 through 50, series 3). No bowel obstruction. No pneumatosis or free air. No organized extraluminal collection. ABDOMINAL WALL: No significant hernia is appreciated. LYMPH NODES: No lymphadenopathy. VASCULAR: Severe atherosclerotic disease. Abdominal aorta is normal in caliber. PELVIC VISCERA: Redemonstration of coarse calcification in the fundus of the uterus most likely related with a degenerative fibroid. OSSEOUS STRUCTURES: No acute or aggressive appearing osseous findings. Degenerative changes of the spine. CT/CT abdomen pelvis w IV con IMPRESSION: 1. Findings most consistent with acute uncomplicated diverticulitis of the sigmoid. If not recently obtained, correlation with outpatient colonoscopy is recommended after resolution of the acute flare to evaluate for underlying lesions. 2. Equivocal wall thickening of the gas tric rugae which could be seen in the setting of gastritis. 3. Additional chronic findings as above . CORRESPONDENCE On 07/09/23 @ 15:43 Jaqueline Duffy Wrote To SanazNovember Jaqueline Duffy removed from item. On 07/09/23 @ 15:10 Jaqueline Duffy Wrote To Sanaz (2) spoke with [facility] - reviewed antibiotics, and when to go to ED. She has no further questions and appreciated the call back. On 07/09/23 @ 15:06 SanazChayo Wrote To SanazNovember (2) Medication Orders levofloxacin 500 mg PO DAILY 10 tabs 0RF New metronidazole 500 mg PO TID 30 t abs 0RF 10 days New On 07/09/23 @ 15:00 Jaqueline Duffy Wrote To Sanaz patients son Wilton called -[phone]. He reports his mom is c/o abdomen pain, greater on the left. patient with hx of diverticulitis. he is asking for antibiotic , so it gets better. denies fever, taking some po. Informed him if she is having severe pain, she should go to ED. He verbalizes understanding. The TODAY'S VISIT Israeli #SON TRANSLATES PER PT REQUEST She is feeling well now, but she did not tolerate the flagyl well. She continued on the Levaquin but they added a cephalosporin, cefepime ER, to her regimen which she did tolerate well despite her penicillin allergy. She is having trouble complying with her oral iron therapy r/t CIC. She is taking the senna and the colace but she will have very small BM's and incomplete evacuation. With further review, however, she is only taking 1 senna qhs so I will have her increase it to 2 at bedtime and she can even go up to 3 if she needs it. I tell her that I really want her to stay on her iron therapy if possible so I think it is better for us to control the constipation from our end. I also educate her and her son that constipation frequently will make him more prone to diverticular infections so it is important that we control this. She will be seeing the provider who prescribes the iron in the next couple of days and she will also tell them or working on. She continues on her omeprazole with good control of her GERD however her appetite has been reduced recently it is hard to say if this is secondary constipation or to the diverticulitis. She also continues on her Creon. ROV 3 weeks PFSH Medical History IBS (irritable bowel syndrome) Tubular adenoma of colon Diverticulitis Hyperlipidemia Adenomyomatosis of gallbladder Constipation GERD (gastroesophageal reflux disease) Surgical History Hx of laminectomy Hx of colonoscopy Hx of foot surgery History of esophagogastroduodenoscopy (EGD) Hx of tubal ligation Family History Family/Other No problems noted. Social History Household Members: None Housing: Apartment Do you presently have visiting nurse or other home services: Yes Alcohol intake: never Comment: 1 Patient Tobacco Use Status: Never used Tobacco service: No Current occupational status: retired Review of Systems Const Denies fatigue, Denies fever(s), Denies night sweats, Denies poor appetite and Denies weight loss ENT Reports Normal hearing present, Denies dental pain, Denies dysphagia, Denies hearing loss, Denies mouth pain, Denies odynophagia, Denies throat swelling, D enies tongue swelling and Reports other (Dentition adequate) Card Reports no additional complaints Resp Reports no additional complaints GI Denies abdominal pain, Denies melena, Denies bloating, Denies hematochezia, Reports constipation, Denies GI cramping, Denies dysphagia, Denies excessive flatus, Denies early satiety, Reports heartburn, Denies diarrhea, Denies nausea, Denies odynophagia, Denies vomiting and Denies hematemesis Skin/Breast Denies pruritus, Denies lesions, Denies rash and Denies jaundice Neuro Reports Normal hearing present and Denies Abnormal speech present Endo Denies fatigue Aller/Immun Denies throat swelling and Denies tongue swelling Physical Exam Vital Signs: BMI result Body Mass Index 21.8 Const General: cooperative, no acute distress, well developed and well groomed Nutritional Appearance: average body habitus and well nourished Orientation/consciousness: oriented to person, oriented to place and oriented to time Limitations: language barrier HEENT Head: Yes normocephalic and Yes atraumatic Eyes General: appearance normal, both eyes and all related structures Pupils: Equal, round and reactive pupils present Neck Neck: Yes normal visual inspection and Yes no lymphadenopathy Thyroid: Thyroid normal Resp Effort & Inspection: normal respiratory effort and able to speak in complete sentences Auscultation: clear to auscultation bilaterally Cardio Rate: regular rate Rhythm: regular rhythm Heart sounds: Normal, physiologic split S2 sound present Peripheral pulses: radial pulses present and posterior tibial pulses present GI Inspection: No distended and No Abdominal panniculus present Palpation (GI): Soft to palpation, nontender, no guarding, not rigid and No hepatosplenomegaly present Percussion: Yes normal to percussion Auscultation: normal bowel sounds Rectal Exam - Female: deferred Skin General skin exam: no rashes or lesions noted, turgor normal, skin not dry, no jaundice, No spider nevi and no striae Rashes: no rashes Nails: normal Neuro General: oriented to person, oriented to place and oriented to time Cranial nerves: Yes Equal, round and reactive pupils present and Yes Normal hearing present Speech: No Abnormal speech present Extrem General: Yes normal to inspection, No clubbing, No cyanosis and No edema Psych Appearance: grossly normal and well kempt Mental Status: mental status grossly normal Speech and movement: Normal speech and movement present Affect: normal affect Attitude: cooperative Thought process: Normal thought process present and not confabulating Thought content: Normal thought content present Insight: Limited insight present (Psych) Judgement: Limited judgement present (Psych) Assessment & Plan Assessment & Plan (1) Diverticulitis: Code(s): K57.92 - Diverticulitis of intestine, part unspecified, without perforation or abscess without bleeding (2) GERD (gastroesophageal reflux disease): Code(s): K21.9 - Gastro-esophageal reflux disease without esophagitis (3) IBS (irritable bowel syndrome): Comment: Well controlled on Creon Code(s): K58.9 - Irritable bowel syndrome without diarrhea (4) Constipation: Code(s): K59.00 - Constipation, unspecified Plan Israeli #SON TRANSLATES PER PT REQUEST She is feeling well now, but she did not tolerate the flagyl well. She continued on the Levaquin but they added a cephalosporin, cefepime ER, to her regimen which she did tolerate well despite her penicillin allergy. She is having trouble complying with her oral iron therapy r/t CIC. She is taking the senna and the colace but she will have very small BM's and incomplete evacuation. With further review, however, she is only taking 1 senna qhs so I will have her increase it to 2 at bedtime and she can even go up to 3 if she needs it. I tell her that I really want her to stay on her iron therapy if possible so I think it is better for us to control the constipation from our end. I also educate her and her son that constipation frequently will make him more prone to diverticular infections so it is important that we control this. She will be seeing the provider who prescribes the iron in the next couple of days and she will also tell them or working on. She continues on her omeprazole with good control of her GERD however her appetite has been reduced recently it is hard to say if this is secondary constipation or to the diverticulitis. She also continues on her Creon. ROV 3 weeks Medications: Changed From sennosides 17.2 mg (2 x 8.6 mg) PO BEDTIME 30 days 60 caps 6RF constipation K59.00 - Constipation, unspecified To sennosides (senna) 25.8 mg (3 x 8.6 mg) PO BEDTIME 90 caps 6RF constipation 30 days K59.00 - Constipation, unspecified Refilled omeprazole 40 mg PO DAILY@0630 30 caps 6RF docusate sodium (DOK) 100 mg PO BID 60 caps 6RF Coding Level of Care Code Est Pt Level 3 (94222) Diagnoses Diverticulitis K57.92 GERD (gastroesophageal reflux disease) K21.9 IBS (irritable bowel syndrome) K58.9 Constipation K59.00
[2023-08-07 09:19] VITALS: BMI 21.8
== END 2023-08-07 09:51 | disposition home or self-care (01) ==
PROVIDERS: PCP Nurse Practitioner Primary Care; Visit Provider Nurse Practitioner
DX: K57.92 Diverticulitis of intestine, part unspecified, without perforation or abscess without bleeding (principal); K21.9 Gastro-esophageal reflux disease without esophagitis; K58.9 Irritable bowel syndrome, unspecified; K59.00 Constipation, unspecified
CPT/HCPCS: 99213

== ENCOUNTER → 2023-08-07 09:13 | Outpatient (BNVA) | payer OTHER, SELFPAY | PROVIDERS: PCP Nurse Practitioner Primary Care; Visit Provider Nurse Practitioner | DX: K57.92 Diverticulitis of intestine, part unspecified, without perforation or abscess without bleeding (principal); K21.9 Gastro-esophageal reflux disease without esophagitis; K58.9 Irritable bowel syndrome, unspecified; K59.00 Constipation, unspecified | CPT/HCPCS: 99212 ==

== ENCOUNTER 2023-08-28 09:28 | Outpatient (AMB) | payer OTHER, SELFPAY ==
--- NOTE | 2023-08-28 09:35 | MHC.OFFVIS ---
Intake Vital Signs 08/28/23 09:36 Height 4 ft 11 in Weight 106 lb 11.26 oz BMI 21.5 BP 128/67 Blood Pressure Location Rt brachial Position Sitting Pulse 80 Intake Visit Reasons: 3 week follow up Intake Note: Patient presents to in office visit today in follow up of diverticulitis. CC: Patient reports doing well and denies having any new GI symptoms. [employer] English Teacher Required: Yes High [employer] English Teacher Name: son Accompanied by: Son Allergies Penicillins [PENICILLINS] Allergy (Severe, Verified 08/28/23 09:39) THROAT CLOSES/HIVES PFSH Medical History IBS (irritable bowel syndrome) Tubular adenoma of colon Diverticulitis Hyperlipidemia Adenomyomatosis of gallbladder Constipation GERD (gastroesophageal reflux disease) Surgical History Hx of laminectomy Hx of colonoscopy Hx of foot surgery History of esophagogastroduodenoscopy (EGD) Hx of tubal ligation Family History Family/Other No problems noted. 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
[2023-08-28 09:36] VITALS: BP 128/67; PULSE 80; BMI 21.5
--- NOTE | 2023-08-28 09:36 | A.OFFVIS_ITS ---
Intake Vital Signs 08/28/23 09:36 Height 4 ft 11 in Weight 106 lb 11.26 oz BMI 21.5 BP 128/67 Blood Pressure Location Rt brachial Position Sitting Pulse 80 Intake Visit Reasons: 3 week follow up Allergies Penicillins [PENICILLINS] Allergy (Severe, Verified 08/28/23 09:39) THROAT CLOSES/HIVES HPI 3 week follow up HPI Details Assessment & Plan (1) Diverticulitis: Code(s): K57.92 - Diverticulitis of intestine, part unspecified, without perforation or abscess without bleeding (2) GERD (gastroesophageal reflux diseas e): Code(s): K21.9 - Gastro-esophageal reflux disease without esophagitis (3) IBS (irritable bowel syndrome): Comment: Well controlled on Creon Code(s): K58.9 - Irritable bowel syndrome without diarrhea (4) Constipation: Code(s): K59.00 - Constipation, unspecified Plan Albanian #SON TRANSLATES PER PT REQUEST She is feeling well now, but she did not tolerate the flagyl well. She continued on the Levaquin but they added a cephalosporin, cefepime ER, to her regimen which she did tolerate well despite her penicillin allergy. She is having trouble complying with her oral iron therapy r/t CIC. She is taking the senna and the colace but she will have very small BM's and incomplete evacuation. With further review, however, she is only taking 1 senna qhs so I will have her increase it to 2 at bedtime and she can even go up to 3 if she needs it. I tell her that I really want her to stay on her iron therapy if possible so I think it is better for us to control the constipation from our end. I also educate her and her son that constipation frequently will make him more prone to diverticular infections so it is important that we control this. She will be seeing the provider who prescribes the iron in the next couple of days and she will also tell them or working on. She continues on her omeprazole with good control of her GERD however her appetite has been reduced recently it is hard to say if this is secondary constipation or to the diverticulitis. She also continues on her Creon. ROV 3 weeks Medications: Changed From sennosides 17.2 mg (2 x 8.6 m g) PO BEDTIME 30 d ays 60 caps 6RF co nstipation K59.00 - Constipat ion, unspecified To sennosides (senna) 25.8 mg (3 x 8.6 m g) PO BEDTIME 90 c aps 6RF constipati on 30 days K59.00 - Constipat ion, unspecified Refilled omeprazole 40 mg PO DAILY@063 0 30 caps 6RF docusate sodium (D OK) 100 mg PO BID 60 c aps 6RF TODAYS VISIT [place] #Kaylynn Live She is here with her son who is supportive She has been taking fiber gummies and is moving her bowels well w/o increasing the senna. She asks if she can eat oatmeal and Kielbasa and I tell her this is absolutely fine. We again review the foods that sometimes will set off diverticulitis. She feels much better knowing she can return to eating some of her favorite foods and I think this will improve her appetite. If she has the same pain I advised him to call my office before going to the ER because I can send an antibiotic can try to save them the trip. However if the pain is a different location this occurs on the weekend I still encouraged them to utilize emergency services. It review her GI regimen consists Colace twice a day fiber gummies Creon omeprazole once a day and as needed. Her iron therapy also contributes to her constipation but we want to keep her on it to keep her health at best. She already has an appointment scheduled with me in November so will keep that. FOR[facility]LY [facility], [facility] Medical History IBS (irritable bowel syndrome) Tubular adenoma of colon Diverticulitis Hyperlipidemia Adenomyomatosis of gallbladder Constipation GERD (gastroesophageal reflux disease) Surgical History Hx of laminectomy Hx of colonoscopy Hx of foot surgery History of esophagogastroduodenoscopy (EGD) Hx of tubal ligation Family History Family/Other No problems noted. Social History Household Members: None Housing: Apartment Do you presently have visiting nurse or other home services: Yes Alcohol intake: never Comment: 1 Patient Tobacco Use Status: Never used Tobacco service: No Current occupational status: retired Review of Systems Const Denies fatigue, Denies fever(s), Denies night sweats, Reports poor appetite and Denies weight loss ENT Reports Normal hearing present, Denies dental pain, Denies dysphagia, Denies hearing loss, Denies mouth pain, Denies odynophagia, Denies throat swelling, Denies tongue swelling and Reports other (Dentition adequate) Card Reports no additional complaints Resp Reports no additional complaints GI Denies abdominal pain, Denies melena, Denies bloating, Denies hematochezia, Reports constipation, Denies GI cramping, Denies dysphagia, Denies excessive flatus, Denies early satiety, Reports heartburn, Denies diarrhea, Denies nausea, Denies odynophagia, Denies vomiting and Denies hematemesis Skin/Breast Denies pruritus, Denies lesions, Denies rash and Denies jaundice Neuro Reports Normal hearing present, Denies Abnormal speech present and Reports memory loss Psych Reports memory loss Endo Denies fatigue Aller/Immun Denies throat swelling and Denies tongue swelling Physical Exam Vital Signs: Last Vital Signs Pulse 80 08/28/23 09:36 BP 128/67 08/28/23 09:36 BMI result Body Mass Index 21.5 Const General: cooperative, no acute distress, well developed and well groomed Nutritional Appearance: average body habitus and well nourished Orientation/consciousness: oriented to person, oriented to place and oriented to time Limitations: language barrier HEENT Head: Yes normocephalic and Yes atraumatic Eyes General: appearance normal, both eyes and all related structures Pupils: Equal, round and reactive pupils present Neck Neck: Yes normal visual inspection and Yes no lymphadenopathy Thyroid: Thyroid normal Resp Effort & Inspection: normal respiratory effort and able to speak in complete sentences Auscultation: clear to auscultation bilaterally Cardio Rate: regular rate Rhythm: regular rhythm Heart sounds: Normal, physiologic split S2 sound present Peripheral pulses: radial pulses present and posterior tibial pulses present GI Inspection: No distended and No Abdominal panniculus present Palpation (GI): Soft to palpation, nontender, no guarding, not rigid and No hepatosplenomegaly present Percussion: Yes normal to percussion Auscultation: normal bowel sounds Rectal Exam - Female: deferred Skin General skin exam: no rashes or lesions noted, turgor normal, skin not dry, no jaundice, No spider nevi and no striae Rashes: no rashes Nails: normal Neuro General: oriented to person, oriented to place and oriented to time Cranial nerves: Yes Equal, round and reactive pupils present and Yes Normal hearing present Speech: No Abnormal speech present Extrem General: Yes normal to inspection, No clubbing, No cyanosis and No edema Psych Appearance: grossly normal and well kempt Mental Status: mental status grossly normal Speech and movement: Normal speech and movement present Affect: normal affect Attitude: cooperative Thought process: Normal thought process present and not confabulating Thought content: Normal thought content present Insight: Limited insight present (Psych) Judgement: Limited judgement present (Psych) Assessment & Plan Assessment & Plan (1) GERD (gastroesophageal reflux disease): Code(s): K21.9 - Gastro-esophageal reflux disease without esophagitis (2) IBS (irritable bowel syndrome): Comment: Well controlled on Creon Code(s): K58.9 - Irritable bowel syndrome without diarrhea (3) Diverticulitis: Code(s): K57.92 - Diverticulitis of intestine, part unspecified, without perforation or abscess without bleeding (4) Constipation: Code(s): K59.00 - Constipation, unspecified Plan [place] #Kaylynn Live She is here with her son who is supportive She has been taking fiber gummies and is moving her bowels well w/o increasing the senna. She asks if she can eat oatmeal and Kielbasa and I tell her this is absolutely fine. We again review the foods that sometimes will set off diverticulitis. She feels much better knowing she can return to eating some of her favorite foods and I think this will improve her appetite. If she has the same pain I advised him to call my office before going to the ER because I can send an antibiotic can try to save them the trip. However if the pain is a different location this occurs on the weekend I still encouraged them to utilize emergency services. It review her GI regimen consists Colace twice a day fiber gummies Creon omepr azole once a day and as needed. Her iron therapy also contributes to her constipation but we want to keep her on it to keep her health at best. She already has an appointment scheduled with me in November so will keep that. Coding Level of Care Code Est Pt Level 3 (09060) Diagnoses GERD (gastroesophageal reflux disease) K21.9 IBS (irritable bowel syndrome) K58.9 Diverticulitis K57.92 Constipation K59.00
== END 2023-08-28 11:35 | disposition home or self-care (01) ==
PROVIDERS: PCP Nurse Practitioner Primary Care; Visit Provider Nurse Practitioner
DX: K21.9 Gastro-esophageal reflux disease without esophagitis (principal); K58.9 Irritable bowel syndrome, unspecified; K57.92 Diverticulitis of intestine, part unspecified, without perforation or abscess without bleeding; K59.00 Constipation, unspecified
CPT/HCPCS: 99213

== ENCOUNTER → 2023-08-28 09:28 | Outpatient (BNVA) | payer OTHER, SELFPAY | PROVIDERS: PCP Nurse Practitioner Primary Care; Visit Provider Nurse Practitioner | DX: K21.9 Gastro-esophageal reflux disease without esophagitis (principal); K58.9 Irritable bowel syndrome, unspecified; K57.92 Diverticulitis of intestine, part unspecified, without perforation or abscess without bleeding; K59.00 Constipation, unspecified | CPT/HCPCS: 99212 ==

== ENCOUNTER 2023-11-13 08:47 | Outpatient (REF) | payer OTHER, SELFPAY ==
[2023-11-13 12:29] LABS: Cholesterol 124 mg/dL (<200); HDL Cholesterol 51 mg/dL (>40); Iron 114 mcg/dL (30-160); LDL Cholesterol Calculated 53 mg/dL (<100); Percent Iron Saturation 49 % (15-50); Total Iron Binding Capacity 233 mcg/dL (228-428); Triglycerides 100 mg/dL (<150); Unsaturated Iron Binding 119 ug/dL
[2023-11-13 12:32] LABS: Ferritin 85 ng/mL (10-250)
[2023-11-14 13:33] LABS: Calcium, Ionized 5.2 mg/dL (4.7-5.5)
== END 2023-11-13 08:48 | disposition home or self-care (01) ==
LOC: HO.HHCL 08:47
PROVIDERS: Visit Provider Nurse Practitioner Primary Care
DX: E83.52 Hypercalcemia (principal); D50.9 Iron deficiency anemia, unspecified; E78.5 Hyperlipidemia, unspecified
CPT/HCPCS: 36415; 80061; 82330; 82728; 83540

== ENCOUNTER 2023-11-27 08:14 | Outpatient (REF) | payer OTHER, SELFPAY ==
--- NOTE | ~2023-11-27 | MM_ITS ---
EXAMINATION: BONE DENSITOMETRY CLINICAL INDICATION: Osteopenia. COMPARISON: Previous BD dated 07/25/2021 and baseline BD dated 08/07/2005. TECHNIQUE: Using a [employer] DXA System (software version: 13.1) manufactured by [employer], dual-energy x-ray absorptiometry was performed of the lumbar spine and left hip. The images are of good technical quality. Summary results are attached. FINDINGS: AP SPINE L1-L4: Current: BMD 0.950 g/cm2, Z-score 0.4, T-score -1.9, osteopenia, 5.9% decrease from previous, 13.6% decrease from baseline (<5% change is not significant). Prior: BMD 1.010 g/cm2. Baseline: BMD 1.099 g/cm2. LEFT FEMUR, NECK: Current: BMD 0.932 g/cm2, Z-score 1.4, T-score -0.8, normal. Prior: BMD 0.878 g/cm2. Baseline: BMD 0.961 g/cm2. LEFT FEMUR, TOTAL: Current: BMD 0.887 g/cm2, Z-score 1.0, T-score -1.0, normal, 2.0% decrease from previous, 7.7% decrease from baseline (<5% change is not significant). Prior: BMD 0.905 g/cm2. Baseline: BMD 0.961 g/cm2. IDENTIFIED RISK FACTORS: Parental hip fracture. Menopause. HISTORY OF FRACTURE: None listed. MEDICATIONS: Calcium supplement and/or multivitamin. Vitamin D. MM/XR DEXA axial skeleton IMPRESSION: 1. DIAGNOSIS: Osteopenia based on the lowest T-score value of -1.9 in the lumbar spine applying World Health Organization criteria. 2. 10-YEAR FRACTURE RISK PREDICTION, FRAX: Major osteoporotic fracture (clinical spine, forearm, hip or shoulder) 6.9%. Hip fracture 1.3%. 3. Treatment Recommendations: NOF guidelines recommend consideration for treatment in postmenopausal women and men age 50 and older presenting with the following: -A hip or vertebral (clinical or morphometric) fracture. -T-score less than or equal to -2.5 at the femoral neck or spine after appropriate evaluation to exclude secondary causes. -Low bone mass at the hip or spine and a 10-year fracture probability by FRAX of greater than or equal to 3% for hip fracture or greater than or equal to 20% for major osteoporotic fracture based on the [place] adapted WHO algorithm. 4. Other Recommendations: All treatment decisions require clinical judgment and consideration of individual patient factors, including patient preferences, comorbidities, previous drug use, risk factors not captured in the FRAX model (e.g. frailty, falls, vitamin D deficiency, increased bone turnover, interval significant decline in bone density) and possible under or overestimation of fracture risk by FRAX. Additional medical evaluation for secondary cause of low bone mineral density may be appropriate. FUTURE SCAN RECOMMENDATION: People with diagnosed cases of osteoporosis or at high risk for fracture should have regular bone mineral density tests. For patients eligible for Medicare, routine testing is allowed once every 2 years. The testing frequency can be increased to one year for patients who have rapidly progressing disease, those who are receiving or discontinuing medical therapy to restore bone mass, or have additional risk factors.
== END 2023-11-27 08:15 | disposition home or self-care (01) ==
LOC: HO.MAMMO 08:14
PROVIDERS: PCP Nurse Practitioner Primary Care; Visit Provider Nurse Practitioner Primary Care
DX: Z13.820 Encounter for screening for osteoporosis (principal); Z78.0 Asymptomatic menopausal state; M85.80 Other specified disorders of bone density and structure, unspecified site
CPT/HCPCS: 77080

== ENCOUNTER 2023-12-11 08:57 | Outpatient (AMB) | payer OTHER, SELFPAY ==
[2023-12-11 09:04] VITALS: BP 140/73; PULSE 77; BMI 21.3
--- NOTE | 2023-12-11 09:04 | A.OFFVIS_ITS ---
Vital Signs 12/11/23 09:04 Height 4 ft 11 in Weight 105 lb 6.095 oz BMI 21.3 BP 140/73 H Blood Pressure Location Lt brachial Position Sitting Pulse 77 Intake Visit Reasons: 6 months f/u Intake Note: Samia presents in office today in 6 months follow up of GERD. CC: c/O RUQ discomfort and pain sometime, denies other GI symptoms. Phthalic Acid Purifier Required: Yes Accompanied by: Friend Allergies Penicillins [PENICILLINS] Allergy (Severe, Verified 12/11/23 09:07) THROAT CLOSES/HIVES HPI HPI 6 months f/u: Details: Assessment & Plan (1) GERD (gastroesophageal reflux disease): Code(s): K21.9 - Gastro-esophageal reflux disease without esophagitis (2) IBS (irritable bowel syndrome): Comment: Well controlled on Creon Code(s): K58.9 - Irritable bowel syndrome without diarrhea (3) Diverticulitis: Code(s): K57.92 - Diverticulitis of intestine, part unspecified, without perforation or abscess without bleeding (4) Constipation: Code(s): K59.00 - Constipation, unspecified Plan MAURITIAN #Kaylynn Live She is here with her son who is supportive She has been taking fiber gummies and is moving her bowels well w/o increasing the senna. She asks if she can eat oatmeal and Kielbasa and I tell her this is absolutely fine. We again review the foods that sometimes will set off diverticulitis. She feels much better knowing she can return to eating some of her favorite foods and I think this will improve her appetite. If she has the same pain I advised him to call my office before going to the ER because I can send an antibiotic can try to save them the trip. However if the pain is a different location this occurs on the weekend I still encouraged them to utilize emergency services. It review her GI regimen consists Colace twice a day fiber gummies Creon omeprazole once a day and as needed. Her iron therapy also contributes to her constipation but we want to keep her on it to keep her health at best. She already has an appointment scheduled with me in November so will keep that. TODAY'S VISIT [place] #Kaylynn LIve She is doing generally well, she has some intermittent mild discomfort in the left abd but it is fleeting and not daily. She has a back up antibiotic prescription in case of recurrence of tics but it has not felt like that. She continues on her fiber gummies, Creon, and omeprazole as needed. She is also on iron therapy that at times contributes to her constipation. ROV 6 mos. PFSH Medical History IBS (irritable bowel syndrome) Tubular adenoma of colon Diverticulitis Hyperlipidemia Adenomyomatosis of gallbladder Constipation GERD (gastroesophageal reflux disease) Surgical History Hx of laminectomy Hx of colonoscopy Hx of foot surgery History of esophagogastroduodenoscopy (EGD) Hx of tubal ligation Family History Family/Other No problems noted. Social History Household Members: None Housing: Apartment Do you presently have visiting nurse or other home services: Yes Alcohol intake: never Comment: 1 Patient Tobacco Use Status: Never used Tobacco service: No Current occupational status: retired Review of Systems Const Denies fatigue, Denies fever(s), Denies night sweats, Denies poor appetite and Denies weight loss ENT Reports Normal hearing present, Denies dental pain, Denies dysphagia, Denies hearing loss, Denies mouth pain, Denies odynophagia, Denies throat swelling, Denies tongue swelling and Reports other (Dentition adequate) Card Reports no additional complaints Resp Reports no additional complaints GI Details: Denies abdominal pain, Denies melena, Reports bloating, Denies hematochezia, Reports constipation, Denies GI cramping, Denies dysphagia, Denies excessive flatus, Denies early satiety, Reports heartburn, Denies diarrhea, Denies nausea, Denies odynophagia, Denies vomiting and Denies hematemesis Skin/Breast Denies pruritus, Denies lesions, Denies rash and Denies jaundice Neuro Reports Normal hearing present and Denies Abnormal speech present Endo Denies fatigue Aller/Immun Denies throat swelling and Denies tongue swelling Physical Exam Vital Signs: Last Vital Signs Pulse 77 12/11/23 09:04 BP 140/73 H 12/11/23 09:04 BMI result Body Mass Index 21.3 Const General: cooperative, no acute distress, well developed and well groomed Nutritional Appearance: average body habitus and well nourished Orientation/consciousness: oriented to person, oriented to place and oriented to time Limitations: language barrier and other limitations HEENT Head: Yes normocephalic and Yes atraumatic Eyes General: appearance normal, both eyes and all related structures Pupils: Equal, round and reactive pupils present Neck Neck: Yes normal visual inspection and Yes no lymphadenopathy Thyroid: Thyroid normal Resp Effort & Inspection: normal respiratory effort and able to speak in complete sentences Auscultation: clear to auscultation bilaterally Cardio Rate: regular rate Rhythm: regular rhythm Heart sounds: Normal, physiologic split S2 sound present Peripheral pulses: radial pulses present and posterior tibial pulses present GI Inspection: No distended and No Abdominal panniculus present Palpation (GI): Soft to palpation, nontender, no guarding, not rigid and No hepatosplenomegaly present Percussion: Yes normal to percussion Auscultation: normal bowel sounds Rectal Exam - Female: deferred Skin General skin exam: no rashes or lesions noted, turgor normal, skin not dry, no jaundice, No spider nevi and no striae Rashes: no rashes Nails: normal Neuro General: oriented to person, oriented to place and oriented to time Cranial nerves: Yes Equal, round and reactive pupils present and Yes Normal hearing present Speech: No Abnormal speech present Extrem General: Yes normal to inspection, No clubbing, No cyanosis and No edema Psych Appearance: grossly normal and well kempt Mental Status: mental status grossly normal Speech and movement: Normal speech and movement present Affect: normal affect Attitude: cooperative Thought process: Normal thought process present and not confabulating Thought content: Normal thought content present Insight: Limited insight present (Psych) Judgement: Limited judgement present (Psych) Assessment & Plan Assessment & Plan (1) GERD (gastroesophageal reflux disease): Code(s): K21.9 - Gastro-esophageal reflux disease without esophagitis Category: Medical (2) IBS (irritable bowel syndrome): Comment: Well controlled on Creon Code(s): K58.9 - Irritable bowel syndrome without diarrhea Category: Medical (3) Diverticulitis: Code(s): K57.92 - Diverticulitis of intestine, part unspecified, without perforation or abscess without bleeding Category: Medical Plan [place] #Kaylynn LIve She is doing generally well, she has some intermittent mild discomfort in the left abd but it is fleeting and not daily. She has a back up antibiotic prescription in case of recurrence of tics but it has not felt like that. She continues on her fiber gummies, Creon, and omeprazole as needed. She is also on iron therapy that at times contributes to her constipation. ROV 6 mos. Medications: Changed From [id number] 24,000-76,000 -120,000 unit (Creon) 1 cap PO QID 120 caps 6RF K58.9 - Irritable bowel syndrome without diarrhea To [id number] 24,000-76,000 -120,000 unit (Creon) 2 caps PO BID 120 caps 6RF K58.9 - Irritable bowel syndrome without diarrhea From docusate sodium (DOK) 100 mg PO BID 60 caps 6RF To docusate sodium 100 mg PO BID 60 caps 6RF Refilled sennosides (senna) 25.8 mg (3 x 8.6 mg) PO BEDTIME 90 caps 6RF constipation 30 days K59.00 - Constipation, unspecified omeprazole 40 mg PO DAILY@0630 30 caps 6RF Coding Level of Care Code Est Pt Level 3 (77649) Diagnoses GERD (gastroesophageal reflux disease) K21.9 IBS (irritable bowel syndrome) K58.9 Diverticulitis K57.92
== END 2023-12-11 09:39 | disposition home or self-care (01) ==
PROVIDERS: PCP Nurse Practitioner Primary Care; Visit Provider Nurse Practitioner
DX: K21.9 Gastro-esophageal reflux disease without esophagitis (principal); K58.9 Irritable bowel syndrome, unspecified; K57.92 Diverticulitis of intestine, part unspecified, without perforation or abscess without bleeding
CPT/HCPCS: 99213

== ENCOUNTER → 2023-12-11 08:57 | Outpatient (BNVA) | payer OTHER, SELFPAY | PROVIDERS: PCP Nurse Practitioner Primary Care; Visit Provider Nurse Practitioner | DX: K21.9 Gastro-esophageal reflux disease without esophagitis (principal); K58.9 Irritable bowel syndrome, unspecified; K57.92 Diverticulitis of intestine, part unspecified, without perforation or abscess without bleeding | CPT/HCPCS: 99212 ==

== ENCOUNTER 2024-02-27 08:48 | Outpatient (REF) | payer OTHER, SELFPAY | END 2024-02-27 08:49 | disposition home or self-care (01) | LOC: HO.MAMMO 08:48 | PROVIDERS: PCP Nurse Practitioner Primary Care; Visit Provider Nurse Practitioner Primary Care | DX: Z12.31 Encounter for screening mammogram for malignant neoplasm of breast (principal) | CPT/HCPCS: 77063; 77067 ==

== ENCOUNTER → 2024-02-27 09:30 | Outpatient (BNV) | payer OTHER, SELFPAY | PROVIDERS: PCP Nurse Practitioner Primary Care; Visit Provider Radiology Diagnostic Radiology | DX: Z12.31 Encounter for screening mammogram for malignant neoplasm of breast (principal) | CPT/HCPCS: 77063; 77067 ==

== ENCOUNTER 2024-06-12 09:26 | Outpatient (AMB) | payer OTHER, SELFPAY ==
--- NOTE | 2024-06-12 09:30 | A.OFFVIS_ITS ---
Vital Signs 06/12/24 09:35 Height 4 ft 11 in Weight 105 lb 13.15 oz BMI 21.4 BP 131/67 Blood Pressure Location Lt brachial Position Sitting Pulse 67 Intake Visit Reasons: 6 month follow up CIC, Gerd Intake Note: Patient presents in 6 months follow up of CIC and GERD CC: Patient reports doing well and denies having any GI symptoms today. 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: Yes Accompanied by: Son Allergies Penicillins [PENICILLINS] Allergy (Severe, Verified 06/23/24 09:01) THROAT CLOSES/HIVES HPI HPI 6 month follow up CIC, Gerd: Details: Assessment & Plan (1) GERD (gastroesophageal reflux disease): Code(s): K21.9 - Gastro-esophageal reflux disease without esophagitis Category: Medical (2) IBS (irritable bowel syndrome): Comment: Well controlled on Creon Code(s): K58.9 - Irritable bowel syndrome without diarrhea Category: Medical (3) Diverticulitis: Code(s): K57.92 - Diverticulitis of intestine, part unspecified, without perforation or abscess without bleeding Category: Medical Plan [place] #Lennyira LIve She is doing generally well, she has some intermittent mild discomfort in the left abd but it is fleeting and not daily. She has a back up antibiotic prescription in case of recurrence of tics but it has not felt like that. She continues on her fiber gummies, Creon, and omeprazole as needed. She is also on iron therapy that at times contributes to her constipation. ROV 6 mos. Medications: Changed From [id number] 24,000-76,000 -120,000 unit (Creon) 1 cap PO QID 120 caps 6RF K58.9 - Irritable bowel syndrome without diarrhea To [id number]-ltsrcspt-[id number] 24,000-76,000 -120,000 unit (Creon) 2 caps PO BID 120 caps 6RF K58.9 - Irritable bowel syndrome without diarrhea From docusate sodium (DOK) 100 mg PO BID 60 caps 6RF To docusate sodium 100 mg PO BID 60 caps 6RF Refilled sennosides (senna) 25.8 mg (3 x 8.6 mg) PO BEDTIME 90 caps 6RF constipation 30 days K59.00 - Constipation, unspecified omeprazole 40 mg PO DAILY@0630 30 caps 6RF TODAY'S VISIT [place] #son translates per pt request She is now doing very well with bid creon dosing and increase of colace. ROV 6 mos. [facility] Medical History IBS (irritable bowel syndrome) Tubular adenoma of colon Diverticulitis Hyperlipidemia Adenomyomatosis of gallbladder Constipation GERD (gastroesophageal reflux disease) Surgical History Hx of laminectomy Hx of colonoscopy Hx of foot surgery History of esophagogastroduodenoscopy (EGD) Hx of tubal ligation Family History Family/Other No problems noted. Social History Household Members: None Housing: Apartment Do you presently have visiting nurse or other home services: Yes Alcohol intake: never Comment: 1 Patient Tobacco Use Status: Never used Tobacco service: No Current occupational status: retired Review of Systems Const Denies fatigue, Denies fever(s), Denies night sweats, Denies poor appetite and Denies weight loss ENT Reports Normal hearing present, Denies dental pain, Denies dysphagia, Denies hearing loss, Denies mouth pain, Denies odynophagia, Denies throat swelling, Denies tongue swelling and Reports other (Dentition adequate) Card Reports no additional complaints Resp Reports no additional complaints GI Details: Denies abdominal pain, Denies melena, Reports bloating, Denies hematochezia, Reports constipation, Denies GI cramping, Denies dysphagia, Denies excessive flatus, Denies early satiety, Reports heartburn, Denies diarrhea, Denies nausea, Denies odynophagia, Denies vomiting and Denies hematemesis Skin/Breast Denies pruritus, Denies lesions, Denies rash and Denies jaundice Neuro Reports Normal hearing present and Denies Abnormal speech present Endo Denies fatigue Aller/Immun Denies throat swelling and Denies tongue swelling Physical Exam Vital Signs: Last Vital Signs Pulse 67 06/12/24 09:35 BP 131/67 06/12/24 09:35 BMI result Body Mass Index 21.4 Const General: cooperative, no acute distress, well developed and well groomed Nutritional Appearance: average body habitus and well nourished Orientation/consciousness: oriented to person, oriented to place and oriented to time Limitations: language barrier HEENT Head: Yes normocephalic and Yes atraumatic Eyes General: appearance normal, both eyes and all related structures Pupils: Equal, round and reactive pupils present Neck Neck: Yes normal visual inspection and Yes no lymphadenopathy Thyroid: Thyroid normal Resp Effort & Inspection: normal respiratory effort and able to speak in complete sentences Auscultation: clear to auscultation bilaterally Cardio Rate: regular rate Rhythm: regular rhythm Heart sounds: Normal, physiologic split S2 sound present Peripheral pulses: radial pulses present and posterior tibial pulses present GI Inspection: No distended and No Abdominal panniculus present Palpation (GI): Soft to palpation, nontender, no guarding, not rigid and No hepatosplenomegaly present Percussion: Yes normal to percussion Auscultation: normal bowel sounds Rectal Exam - Female: deferred Skin General skin exam: no rashes or lesions noted, turgor normal, skin not dry, no jaundice, No spider nevi and no striae Rashes: no rashes Nails: normal Neuro General: oriented to person, oriented to place and oriented to time Cranial nerves: Yes Equal, round and reactive pupils present and Yes Normal hearing present Speech: No Abnormal speech present Extrem General: Yes normal to inspection, No clubbing, No cyanosis and No edema Psych Appearance: grossly normal and well kempt Mental Status: mental status grossly normal Speech and movement: Normal speech and movement present Affect: normal affect Attitude: cooperative Thought process: Normal thought process present and not confabulating Thought content: Normal thought content present Insight: Limited insight present (Psych) Judgement: Limited judgement present (Psych) Assessment & Plan Assessment & Plan (1) IBS (irritable bowel syndrome): Comment: Well controlled on Creon Code(s): K58.9 - Irritable bowel syndrome, unspecified Category: Medical (2) GERD (gastroesophageal reflux disease): Code(s): K21.9 - Gastro-esophageal reflux disease without esophagitis Category: Medical Plan [place] #son translates per pt request She is now doing very well with bid creon dosing and increase of colace. She continues on her omeprazole 40 mg with good control of her GERD. ROV 6 mos. Coding Level of Care Code Est Pt Level 3 (92956) Diagnoses IBS (irritable bowel syndrome) K58.9 GERD (gastroesophageal reflux disease) K21.9
[2024-06-12 09:35] VITALS: BP 131/67; PULSE 67; BMI 21.4
== END 2024-06-12 10:25 | disposition home or self-care (01) ==
PROVIDERS: PCP Nurse Practitioner Primary Care; Visit Provider Nurse Practitioner
DX: K58.9 Irritable bowel syndrome, unspecified (principal); K21.9 Gastro-esophageal reflux disease without esophagitis
CPT/HCPCS: 99213

== ENCOUNTER → 2024-06-12 09:26 | Outpatient (BNVA) | payer OTHER, SELFPAY | PROVIDERS: PCP Nurse Practitioner Primary Care; Visit Provider Nurse Practitioner | DX: K59.04 Chronic idiopathic constipation (principal); K21.9 Gastro-esophageal reflux disease without esophagitis; K58.1 Irritable bowel syndrome with constipation; K57.92 Diverticulitis of intestine, part unspecified, without perforation or abscess without bleeding; Z79.899 Other long term (current) drug therapy | CPT/HCPCS: 99212 ==

== ENCOUNTER 2024-06-23 08:48 | Outpatient (AMB) | payer OTHER, SELFPAY ==
--- NOTE | 2024-06-23 08:56 | A.OFFVIS_ITS ---
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 Pt states Left LE worse than Right LE numbness. Pt states she gets cramping when non-ambulatory. Pt states she gets pain on the top of her right foot. Started over 6 moths ago. 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 She states this has been going on for over 6m now, and is not getting any better. She states it sometimes her leg is numb and then becomes crampy. She states she enjoys walking but he has been having a difficult time due to the pain. She denies any recent falls and denies any weakness in that leg. She denies any injuries. She has no history of DVT or PE. She is not a diabetic. She is a former smoker, smoked approximally 1 pack a day for 30 years, quitting approximately 24 years ago. She does elevate whenever possible, but states it does not help with the pain. [facility] Medical History IBS (irritable bowel syndrome) Tubular adenoma of colon Diverticulitis Hyperlipidemia Adenomyomatosis of gallbladder Constipation GERD (gastroesophageal reflux disease) Surgical History Hx of laminectomy Hx of colonoscopy Hx of foot surgery History of esophagogastroduodenoscopy (EGD) Hx of tubal ligation Family History Family/Other No problems noted. Social History Household Members: None Housing: Apartment Do you presently have visiting nurse or other home services: Yes Alcohol intake: never Comment: 1 Patient Tobacco Use Status: Never used Tobacco service: No Current occupational status: retired Review of Systems Const Reports as per HPI and Denies weakness ENT Reports Normal hearing present and Denies dizziness Card Reports as per HPI, Denies chest pain, Denies chest pain at rest, Denies chest pain with activity, Denies dyspnea and Denies dyspnea on exertion Resp Reports as per HPI, Denies cough, Denies dyspnea and Denies dyspnea on exertion GI Reports as per HPI, Denies abdominal pain, Denies nausea and Denies vomiting Musc Denies numbness Skin/Breast Reports as per HPI, Denies erythema and Denies wounds Neuro Reports Normal hearing present, Denies dizziness, Denies numbness, Denies Sensory deficit (Neuro) and Denies weakness Psych Reports no additional complaints Endo Reports no additional complaints Physical Exam Vital Signs: BMI result Body Mass Index 21.2 Const General: healthy appearing and no acute distress Orientation/consciousness: patient oriented x3 HEENT Head: Yes normal to inspection Ears: hearing grossly normal bilaterally Mouth: Normal oral and palatal mucosa present Resp Effort & Inspection: normal respiratory effort and able to speak in complete sentences Auscultation: clear to auscultation bilaterally Cardio Jugular venous distension: no JVD Rate: regular rate Rhythm: regular rhythm Heart sounds: S1 normal heart sound present and S2 normal heart sound present Bruits: no abdominal aortic bruits, no carotid bruits, no femoral bruits and no renal bruits Peripheral pulses: Peripheral pulses 2+ throughout GI Inspection: Yes normal to inspection Palpation (GI): No Abdominal aortic bruit present Skin General skin exam: no rashes or lesions noted Wounds: no wounds Hair: normal Neuro General: patient oriented x3 Cranial nerves: Yes Normal hearing present Cognition (Neuro): normal cognition Gait exam (Neuro): Normal gait present Motor exam (neuro): 5/5 motor strength present throughout Sensory Exam: No Sensory deficit (Neuro) Extrem Other: Left lower extremity: Palpable DP and PT pulses. No discoloration, wounds, or lacerations noted. Very small spider veins noted around the knee. Right lower extremity: Palpable DP and PT pulses. No discoloration, wounds, or lacerations noted. General: Yes normal to inspection, Yes full ROM, Yes capillary refill normal and Yes normal gait Assessment & Plan Assessment & Plan (1) Peripheral vascular disease: Code(s): I73.9 - Peripheral vascular disease, unspecified Category: Medical Plan: Samia is presenting today as a referral from her PCP office for ongoing cramping and left lower extremity pain, getting worse over the last 6 months. She states the pain occurs when she is walking and gets better when she is resting. This is likely a claudication issue; we will be ordering arterial duplex ultrasound. We will have her schedule the appointment and then follow up with us back in the office. I have discussed the pathophysiology of peripheral vascular disease with the patient. I have also discussed risk factor modification. We discussed health maintenance with a well-balanced diet and physical activity/walking as tolerated. If there are any questions or concerns, please do not hesitate to reach out to our office. Orders: Orders US arterial duplex LE BI 1 Week I73.9 - Peripheral vascular disease, unspecified Coding Level of Care Code New Pt Level 4 (76387) Diagnoses Peripheral vascular disease I73.9
[2024-06-23 08:57] VITALS: BMI 21.2
== END 2024-06-23 09:24 | disposition home or self-care (01) ==
PROVIDERS: PCP Nurse Practitioner Primary Care; Visit Provider Physician Assistant Surgical
DX: I73.9 Peripheral vascular disease, unspecified (principal)
CPT/HCPCS: 99204

== ENCOUNTER → 2024-06-23 08:48 | Outpatient (BNVA) | payer OTHER, SELFPAY | PROVIDERS: PCP Nurse Practitioner Primary Care; Visit Provider Physician Assistant Surgical | DX: I73.9 Peripheral vascular disease, unspecified (principal) | CPT/HCPCS: 99202 ==

== ENCOUNTER 2024-07-13 08:04 | Outpatient (REF) | payer OTHER, SELFPAY ==
--- NOTE | ~2024-07-13 | US_ITS ---
EXAMINATION: Noninvasive assessment of the bilateral lower extremities with ARTERIAL DUPLEX, ANKLE BRACHIAL INDICES (ABIs), and PULSE VOLUME RECORDINGS (PVRs). CLINICAL INFORMATION: Peripheral vascular disease TECHNIQUE: Duplex Doppler techniques with waveform analysis and measurement of velocities in the bilateral common femoral, profunda femoris, superficial femoral, popliteal and tibial arteries were performed. Additionally, ankle pulse volume recordings, ankle pressure measurements and ankle brachial indices were obtained of the lower extremity arterial system bilaterally. The study was performed only at rest. COMPARISON: None FINDINGS: DIRECT DUPLEX DOPPLER FINDINGS: RIGHT LEG: Common femoral artery: 134 cm/s, phasicity: Triphasic Profunda femoris artery: 80 cm/s, phasicity: Triphasic Superficial femoral artery (proximal): 113 cm/s, phasicity: Triphasic Superficial femoral artery (mid): 141 cm/s, phasicity: Biphasic Superficial femoral artery (distal): 108 cm/s, phasicity: Triphasic Popliteal artery: 79 cm/s, phasicity: Biphasic Posterior tibial artery: 64 cm/s, phasicity: Biphasic Peroneal artery: 55 cm/s approximately and 45 cm/s distally, phasicity: Biphasic; the mid segment of the right peroneal artery is not visualized and may be occluded Anterior tibial artery: 64 cm/s, phasicity: Biphasic Dorsalis pedis artery: 54 cm/s, phasicity:Biphasic LEFT LEG: Common femoral artery: 181 cm/s, phasicity: Biphasic Profunda femoris artery: 75 cm/s, phasicity: Biphasic Superficial femoral artery (proximal): 107 cm/s, phasicity: Biphasic Superficial femoral artery (mid): 97 cm/s, phasicity: Biphasic Superficial femoral artery (distal): 126 cm/s, phasicity: Biphasic Popliteal artery: 80 cm/s, phasicity: Biphasic Posterior tibial artery: 70 cm/s, phasicity: Biphasic Peroneal artery: 38 cm/s, phasicity: Monophasic Anterior tibial artery: 60 cm/s, phasicity: Biphasic Dorsalis pedis artery: 44 cm/s, phasicity: Biphasic BRACHIAL PRESSURES: Right: 121 Left: 113 ANKLE PRESSURES: Right: PT 130, DP 148 Left: PT 142, DP 145 ANKLE-BRACHIAL INDEX: Right: 1.22 Left: 1.20 ANKLE PVR WAVEFORMS: Right: Abnormal Left: Abnormal US/US arterial duplex LE BI IMPRESSION: Right Le. No evidence of hemodynamically significant stenosis in the right lower extremity by velocity criteria. 2. The mid segment of the right peroneal artery is not visualized and may be occluded, with distal reconstitution. 3. Normal ankle-brachial index. Left Le. No evidence of hemodynamically significant stenosis in the left lower extremity by velocity criteria. 2. Diffuse biphasic waveforms in the left lower extremity may suggest aortoiliac inflow disease. 3. Dampened velocity and monophasic waveform of the left peroneal artery. 4. Normal ankle-brachial index. [place] Reference: - >1.4 = calcified vessels - 0.9 - 1.4 = normal - no significant arterial disease - 0.7 - 0.89 = mild peripheral arterial disease - 0.51 - 0.69 = moderate peripheral arterial disease - d 0.50 = severe peripheral arterial disease - < .30 = critical arterial disease Electronically signed by: Apple Donahue MD 08/04/2024 12:24 AM DAVID
== END 2024-07-13 08:05 | disposition home or self-care (01) ==
LOC: HO.US 08:04
PROVIDERS: PCP Nurse Practitioner Primary Care; Visit Provider Physician Assistant Surgical
DX: I73.9 Peripheral vascular disease, unspecified (principal)
CPT/HCPCS: 93923; 93925

== ENCOUNTER 2024-08-19 08:19 | Outpatient (REF) | payer OTHER, SELFPAY ==
--- NOTE | ~2024-08-19 | XR_ITS ---
EXAMINATION: XR ANKLE 1-2 VIEWS LEFT HISTORY: atraumatic ankle pain L ankle COMPARISON: Comparison is made with the prior examination dated 09/12/2017. FINDINGS: Three views of the left ankle are submitted. Osseous mineralization is normal. There is no fracture or dislocation. The joint spaces are preserved. There is a small plantar calcaneal spur. The soft tissues are unremarkable. XR/XR ankle LT 2V IMPRESSION: Small plantar calcaneal spur. Otherwise unremarkable examination of the left ankle. Electronically signed by: Steve Matthew MD 08/20/2024 12:26 PM EST
[2024-08-19 11:08] LABS: MANUAL DIFF FLAG NO
[2024-08-19 11:14] LABS: Basophils Absolute Auto 0.1 X10*3/uL (0.0-0.2); Basophils Percent Auto 1.1 % (0-2); Eosinophils Absolute Auto 0.5 X10*3/uL (0.0-0.4); Hematocrit 40.1 % (37.0-47.0); Hemoglobin 13.7 g/dl (12.0-16.0); Imm Gran Abs Auto 0.01 X10*3/uL (0.00-0.03); Imm Gran Pct Auto 0.2 % (0.0-0.4); Lymphocytes Absolute Auto 1.7 X10*3/uL (1.2-4.9); Lymphocytes Percent Auto 27.5 % (20-40); Mean Corpuscular HGB Conc 34.2 g/dl (31.0-35.0); Mean Corpuscular Hemoglobin 29.5 pg (27.0-33.0); Mean Corpuscular Volume 86.2 fL (80.0-98.0); Monocytes Absolute Auto 0.8 X10*3/uL (0.1-1.2); Monocytes Percent Auto 13.1 % (2-11); Neutrophils Absolute Auto 3.1 x10*3/uL (2.0-8.3); Neutrophils Percent Auto 50.1 % (45-73); Platelet Count 219 X10*3/uL (160-400); Red Blood Count 4.65 X10*6/uL (4.20-5.50); Red Cell Distribution Width 13.2 % (11.0-16.0); White Blood Count 6.3 X10*3/uL (4.8-10.8)
== END 2024-08-19 08:20 | disposition home or self-care (01) ==
LOC: HO.HHCL 08:19
PROVIDERS: Visit Provider Nurse Practitioner Primary Care
DX: D50.9 Iron deficiency anemia, unspecified (principal); M25.572 Pain in left ankle and joints of left foot
CPT/HCPCS: 36415; 73600; 85025

== ENCOUNTER → 2024-08-19 08:38 | Outpatient (BNV) | payer OTHER, SELFPAY | PROVIDERS: Visit Provider Radiology Diagnostic Radiology | DX: M25.572 Pain in left ankle and joints of left foot (principal) | CPT/HCPCS: 73600 ==

== ENCOUNTER 2024-12-10 09:38 | Outpatient (AMB) | payer OTHER, SELFPAY ==
--- NOTE | 2024-12-10 10:00 | MHC.OFFVIS ---
Vital Signs 12/10/24 10:12 Height 4 ft 11 in Weight 109 lb 8 oz BMI 22.1 BP 128/68 Blood Pressure Location Lt brachial Position Sitting Pulse 62 Pulse Source Pulse Oximeter Pulse Oximetry (%) 98 Oxygen Delivery Method Room Air Intake Visit Reasons: 6 mo f/u IBS , GERD Intake Note: ESTABLISHED PATIENT for mgmt of GERD, IBS, and hx of diverticulitis. CC; Pt reports that their sx are well controlled. No concerns currently. Supervisor Metal Cans Required: Yes Supervisor Metal Cans Services: Supervisor Metal Cans Offered & Declined Accompanied by: Family/Other Allergies Penicillins [PENICILLINS] Allergy (Severe, Verified 12/10/24 10:11) THROAT CLOSES/HIVES HPI HPI 6 mo f/u IBS , GERD: Details: Assessment & Plan (1) IBS (irritable bowel syndrome): Comment: Well controlled on Creon Code(s): K58.9 - Irritable bowel syndrome, unspecified Category: Medical (2) GERD (gastroesophageal reflux disease): Code(s): K21.9 - Gastro-esophageal reflux disease without esophagitis Category: Medical Plan Albanian #son translates per pt request She is now doing very well with bid creon dosing and increase of colace. She continues on her omeprazole 40 mg with good control of her GERD. ROV 6 mos. TODAY'S VISIT Albanian #son translates per pt request She continues on her creon, colace, senna and omeprazole with good results. She remains satisfied with her GI regimen. Return office visit in 6 months. [facility] Medical History IBS (irritable bowel syndrome) Tubular adenoma of colon Diverticulitis Hyperlipidemia Adenomyomatosis of gallbladder Constipation GERD (gastroesophageal reflux disease) Surgical History Hx of laminectomy Hx of colonoscopy Hx of foot surgery History of esophagogastroduodenoscopy (EGD) Hx of tubal ligation Family History Family/Other No problems noted. Social History Household Members: None Housing: Apartment Do you presently have visiting nurse or other home services: Yes Alcohol intake: never Comment: 1 Patient Tobacco Use Status: Never used Tobacco service: No Current occupational status: retired Review of Systems Const Denies fatigue, Denies fever(s), Denies night sweats, Denies poor appetite and Denies weight loss ENT Reports Normal hearing present, Denies dental pain, Denies dysphagia, Denies hearing loss, Denies mouth pain, Denies odynophagia, Denies throat swelling, Denies tongue swelling and Reports other (Dentition adequate) Card Reports no additional complaints Resp Reports no additional complaints GI Details: Denies abdominal pain, Denies melena, Denies bloating, Denies hematochezia, Reports constipation, Denies GI cramping, Denies dysphagia, Denies excessive flatus, Denies early satiety, Reports heartburn, Denies diarrhea, Denies nausea, Denies odynophagia, Denies vomiting and Denies hematemesis Skin/Breast Denies pruritus, Denies lesions, Denies rash and Denies jaundice Neuro Reports Normal hearing present and Denies Abnormal speech present Endo Denies fatigue Aller/Immun Denies throat swelling and Denies tongue swelling Physical Exam Vital Signs: Last Vital Signs Pulse 62 12/10/24 10:12 BP 128/68 12/10/24 10:12 Pulse Ox 98 12/10/24 10:12 Oxygen Delivery Method Room Air 12/10/24 10:12 BMI result Body Mass Index 22.1 Const General: cooperative, no acute distress, well developed and well groomed Nutritional Appearance: average body habitus and well nourished Orientation/consciousness: oriented to person, oriented to place and oriented to time Limitations: language barrier HEENT Head: Yes normocephalic and Yes atraumatic Eyes General: appearance normal, both eyes and all related structures Pupils: Equal, round and reactive pupils present Neck Neck: Yes normal visual inspection and Yes no lymphadenopathy Thyroid: Thyroid normal Resp Effort & Inspection: normal respiratory effort and able to speak in complete sentences Auscultation: clear to auscultation bilaterally Cardio Rate: regular rate Rhythm: regular rhythm Heart sounds: Normal, physiologic split S2 sound present Peripheral pulses: radial pulses present and posterior tibial pulses present GI Inspection: No distended and No Abdominal panniculus present Palpation (GI): Soft to palpation, nontender, no guarding, not rigid and No hepatosplenomegaly present Percussion: Yes normal to percussion Auscultation: normal bowel sounds Rectal Exam - Female: deferred Skin General skin exam: no rashes or lesions noted, turgor normal, skin not dry, no jaundice, No spider nevi and no striae Rashes: no rashes Nails: normal Neuro General: oriented to person, oriented to place and oriented to time Cranial nerves: Yes Equal, round and reactive pupils present and Yes Normal hearing present Speech: No Abnormal speech present Extrem General: Yes normal to inspection, No clubbing, No cyanosis and No edema Psych Appearance: grossly normal and well kempt Mental Status: mental status grossly normal Speech and movement: Normal speech and movement present Affect: normal affect Attitude: cooperative Thought process: Normal thought process present and not confabulating Thought content: Normal thought content present Insight: Limited insight present (Psych) Judgement: Limited judgement present (Psych) Assessment & Plan Assessment & Plan (1) Constipation: Code(s): K59.00 - Constipation, unspecified Category: Medical (2) GERD (gastroesophageal reflux disease): Code(s): K21.9 - Gastro-esophageal reflux disease without esophagitis Category: Medical Plan Albanian #son translates per pt request She continues on her creon, colace, senna and omeprazole with good results. She remains satisfied with her GI regimen. Return office visit in 6 months. Medications: Refilled docusate sodium 100 mg PO BID 60 caps 6RF omeprazole 40 mg PO DAILY 90 caps 2RF jsoyzs-kyyreyke-pxqxswp 24,000-76,000 -120,000 unit (Creon) 2 caps PO BID 120 caps 6RF K58.9 - Irritable bowel syndrome, unspecified sennosides (senna) 17.2 mg (2 x 8.6 mg) PO BEDTIME PRN 60 tabs 6RF for constipation K59.00 - Constipation, unspecified swdrja-doseggst-gsnitxh 24,000-76,000 -120,000 unit (Creon) 2 caps PO BID 120 caps 6RF K58.9 - Irritable bowel syndrome, unspecified Coding Level of Care Code Est Pt Level 3 (40152) Diagnoses Constipation K59.00 GERD (gastroesophageal reflux disease) K21.9
[2024-12-10 10:12] VITALS: BP 128/68; PULSE 62; O2SAT 98; BMI 22.1
--- OUTSIDE RECORDS SUMMARY | 2024-12-10 10:23 | XMS_ITS | Encounter Summary ---
Author Organization [employer] Address [address] [place] [address] Care Team Providers Care Strip Catcher Name Role Phone Aster Valle Primary Care Provider [phone] Reason for Visit * Reason Comments Med Refill Encounter Details Date Type Department Care Team ([facility] st Contact Info) Description 12/02/2024 Refill [facility] MEDICINE [address] [place], [place] [phone] Aster Valle ANP [address] [place], [place] [phone] Non-seasonal allergic rhinitis due to other allergic trigger Social History Tobacco Use Types Packs/Day Years Used Date Smoking Tobacco: Former Cigarettes 0 08/1965 - 08/1999 Passive Smoke Exposure: Never Smokeless Tobacco: Never Alcohol Use Standard Drinks/Week Comments Never 0 (1 standard drink = 0.6 oz pur e alcohol) Depression Answer Date Recorded Patient Health Questionnaire-9 Score 3 08/18/2024 Patient Health Questionnaire-9 Score 3 08/18/2024 Last PHQ-9: Questionnaire Data Not on file 0 08/18/2024 Housing Stability Answer Date Recorded What is your housing situation today? I have braulio pete 05/27/[address] you li ve. Do you have problems with any of the following? None of the above 05/27/2023 Food Insecurity Answer Date Recorded Within the past 12 months, y ou worried that your food would run out before you got money to buy more: Never True 05/27/2023 Within the past 12 months,th e food you bought just didn't last and you didn't have enough money to get more: Never True Transportation Answer Date Recorded In the past 12 months, has l ack of transportation kept you from medical appts, meetings, work or from getting things needed for daily living? No 05/27/2023 Utilities Answer Date Recorded In the past 12 months, has t he electric, gas, oil or water company threatened to shut off services in your home? No 05/27/2023 Depression Answer Date Recorded Patient Health Questionnaire-2 Score 3 08/18/2024 Comments Unknown Sex and Gender Information Value Date Recorded Sex Assigned at Female 06/04/2022 10:14 AM EDT Legal Sex Female 10:14 AM EDT Gender Identity Female 06/04/2022 10:14 AM EDT Sexual Orientation Straight 06/04/2022 10 :14 AM EDT documented as of this encounter Plan of Treatment Upcoming Encounters Date Type Department Care Team (Late st Contact Info) Description 02/25/2025 11:00 AM EDT Office Visit [facility] MEDICINE [address] [place] [phone] Aster Valle ANP [address] [place] [address] documented as of this encounter Visit Diagnoses Diagnosis Non-seasonal allergic rhinitis due to other allergic trigger documented in this encounter Additional Health Concerns Assessment Noted Time PHQ-9 Depression Total Score: 3 08/18/19 25 10:42 AM EST documented as of this encounter Care Teams Strip Catcher Relationship Specialty Start Date End Date Aster Valle ANP [address] [place] [id number] PCP - General Family Medicine 06/09/20 documented as of this encounter
--- OUTSIDE RECORDS SUMMARY | 2024-12-10 10:23 | XMS_ITS | Encounter Summary ---
Author Organization [employer] Address [address] [place] [address] Care Team Providers Care Mailroom Supervisor Name Role Phone Aster Valle Primary Care Provider [phone] Reason for Visit * Reason Onset Date Comments FYI 10/14/2023 Encounter Details Date Type Department Care Team ([facility] st Contact Info) Description 10/14/2023 Telephone [facility] MEDICINE [address] [place], [place] [phone] Aster Valle ANP [address] [place] [address] Social History Tobacco Use Types Packs/Day Years Used Date Smoking Tobacco: Former Cigarettes 0 08/1965 - 08/1999 Passive Smoke Exposure: Never Smokeless Tobacco: Never Alcohol Use Standard Drinks/Week Comments Never 0 (1 standard drink = 0.6 oz pur e alcohol) Depression Answer Date Recorded Patient Health Questionnaire-9 Score 0 03/01/2023 Housing Stability Answer Date Recorded What is [...] Answer Date Recorded Patient Health Questionnaire-2 Score 0 03/01/2023 Comments Unknown Sex and Gender Information Value Date Recorded Sex Assigned at Female 06/04/2022 10:14 AM EDT Legal Sex Female 10:14 AM EDT Gender Identity Female 06/04/2022 10:14 AM EDT Sexual Orientation Straight 06/04/2022 10 :14 AM EDT documented as of this encounter Miscellaneous Notes * Telephone Encounter - Diaz Macdonald - 10/14/2023 10:12 AM EDT Tc From [facility]ney at [facility] calling to inform the PCP after the QuantaFlo test the resultswas a Mild PVD in the left foot any questions please call Brittney at [phone] documented in this encounter Plan of Treatment Upcoming Encounters Date Type Department Care Team (Late st Contact Info) Description 02/25/2025 11:00 AM EDT Office Visit [facility] MEDICINE [address] [place] [address] Aster Valle ANP [address] [place] [address] documented as of this encounter Visit Diagnoses Not on filedocumented in this encounter Additional Health Concerns Assessment Noted Time PHQ-9 Depression Total Score: 0 03/01/20 23 10:08 AM EDT documented as of this encounter Care Teams Mailroom Supervisor Relationship Specialty Start Date End Date Aster Valle ANP [address] [place] [address] PCP - General Family Medicine 06/09/20 documented as of this encounter
--- OUTSIDE RECORDS SUMMARY | 2024-12-10 10:23 | XMS_ITS | Encounter Summary ---
Author Organization [employer] Address [address] [facility] [address] [place] [address] Care Team Providers Care Epidemiology Investigator Name Role Phone Aster Valle Primary Care Provider [phone] Reason for Visit * Reason Comments Med Refill Encounter Details Date Type Department Care Team ([facility] st Contact Info) Description 01/29/2024 Refill [facility] MEDICINE [address] [place], [place] [phone] Aster Valle ANP [address] [place], [place] [phone] Iron deficiency anemia, unspecified iron deficiency anemia type Social History Tobacco Use Types Packs/Day Years [...] Description 02/25/2025 11:00 AM EDT Office Visit [facility] MEDICINE [address] [place] [address] Aster Valle ANP [address] [place] [address] documented as of this encounter Visit Diagnoses Diagnosis Iron deficiency anemia, unspecified iron deficiency anemia type documented in this encounter Additional Health Concerns Assessment Noted Time PHQ-9 Depression Total Score: 0 03/01/20 23 10:08 AM EDT documented as of this encounter Care Teams Epidemiology Investigator Relationship Specialty Start Date End Date Aster Valle ANP [address] [place] [id number] PCP - General Family Medicine 06/09/20 documented as of this encounter
--- OUTSIDE RECORDS SUMMARY | 2024-12-10 10:23 | XMS_ITS | Clinical Summary ---
Author Organization [employer] Address [address] [facility] 7[address] [place] [address] Care Team Providers Care Cfd Engineer Name Role Phone Ary Rubio CAROLE Primary Care Provider [phone] Allergies Active Allergy Reactions Criticality Noted Date Comments Penicillins Anaphylaxis High 08/07/2022 Medications docusate sodium (Colace) 100 MG capsule Take 1 capsule by mouth in the morning. 8 Active pancrelipase, Jpc-Daey-Ngiv, (Creon) 68833-38775 units capsule Take 1 capsule by mouth 4 times daily. Active QUEtiapine (SEROquel) 25 MG tablet Take 1 tablet by mouth every 12 (twelve) hours. Active sennosides (Senokot) 8.6 MG tablet Take 1 tablet by mouth at bed time. Active omeprazole (PriLOSEC) [address] capsule TOME MILAGROS Ashley PSULA TODOS LOS D EN LA CAROLINE KAY 2 Active lidocaine (Lidoderm) 5 % patch Place 1 patch on the skin in the morning. 2 Active cholecalciferol (Vitamin D-3) 50 MCG (2000 UT) capsule Take 2,000 Units by mouth 1 (one) time each day. Active ascorbid acid ER (Vitamin C) 500 MG ER capsule TAKE 1 CAPSULE BY MOUTH EVERY MORNING 90 capsule 3 4 Active atorvastatin (Lipitor) 40 MG tablet TAKE 1 TABLET BY MOUTH AT BEDTIME 90 tablet 3 4 Active Diclofenac Sodium 1 % gelIndications:A cute left ankle pain APPLY UP TO 4 TIMES A DAY TO AFFECTED JOINT(S) FOR PAIN/SWELLING 100 g 4 Active fluticasone (Flonase) 50 MCG/ACT nasal sprayIndications :Non-seasonal allergic rhinitis due to other allergic trigger SPRAY 1 SPRAY EACH NOSTRIL ONCE DAILY IF NEEDED FOR ALLERGIES. SHAKE GENTLY. BEFORE FIRST USE, PRIME PUMP. AFTER USE, CLEAN TIP AND REPLACE CAP. 48 mL 5 Active ferrous sulfate 325 (65 Fe) MG tabletIndication s:Iron deficiency anemia, unspecified iron deficiency anemia type TOME MILAGROS TABLETA CADA DOS MCKEON CON VIT C OR ORANGE JUICE 45 tablet 3 5 Active Brian-Gest Antacid 500 MG chewable tablet CHEW 1 TABLET (500 MG) 2 TIMES DAILY. 180 tablet 1 5 Active Active Problems Problem Noted Date Diagnosed Date Diverticulitis 03/01/2023 Assessment & Plan (03/01/2023 10:58 AM EDT): To take meds as rx'd by ED. Evaluated yesterday. WBC 11.5, H/H 14.0/ 41.4, CrCl 57.7; Lumbar XR w/o fx or acute abnormality. CT abd/pelvis showed: IMPRESSION: 1. Colonic diverticulosis with bowel wall thickening and trace pericolonic inflammatory changes involving the sigmoid colon suggesting diverticulitis. 2. Slightly decreased hepatic attenuation suggesting hepatic steatosis. 3. Redemonstration of gallbladder wall thickening with calcifications suggesting elements of adenomyomatosis, stable. 4. Bilateral renal hypodense foci demonstrating fluid attenuation statistically representing cysts. 5. Redemonstration of calcified uterine fibroid involving the fundus. Acute left-sided low back pain without sciatica 03/01/2023 Assessment & Plan (03/01/2023 10:49 AM EDT): Acute on chronic. No weakness, numbness, bowel or bladder dysfunction. Recommend: heat, stretching. May take OTC acetaminophen and/or ibuprofen as needed for pain. RTC or call if persistent or worsening sx, or if numbness, tingling, weakness should occur. Iron deficiency anemia 03/01/2023 Assessment & Plan (03/01/2023 11:01 AM EDT): Hgb improved to 14 after 2 units PRBCs. Sx of SOB, fatigue, KNIGHT, resolved. Reviewed that should these recur to please let us know right away. EGD and Colonoscopy on 10/29/[address] Underwood revealed: EGD showed gastritis and a hiatal hernia. Colon showed diverticulosis Right carotid bruit 10/25/2022 Overview (10/25/2022): Carotid US 09/21/22: IMPRESSION: 1. RIGHT: Minimal, non-hemodynamically significant stenosis of the proximal right internal carotid artery corresponding to a 0-49% stenosis by velocity criteria. 2. LEFT: Normal left internal carotid artery without atherosclerotic plaque or hemodynamically significant stenosis. Dyslipidemia 10/25/2022 Osteopenia 08/16/2022 Mixed conductive and sensorineural hearing loss 11/01/2021 Neck pain 04/03/2012 Depressive disorder 03/05/2012 Gastroesophageal reflux disease 03/05/2012 Chronic low back pain 01/03/2012 Urinary incontinence 01/03/2012 Tubular adenoma 10/11/2008 Irritable bowel syndrome 08/05/1959 Migraine 08/05/1959 Seizure disorder 08/05/1959 Resolved Problems Problem Noted Date Diagnosed Date Resolved Date Bilateral hearing loss 03/01/202303/01 Overview (03/01/2023): Had exam w/ Dr. Paul who advised that hearing aids were medically necessary. Info given for ENT and [facility] to call for hearing aid appt. Smoker 04/03/2012 08/16/2022 Encounters Date Type Department Care Team Description 12/02/2024 Refill [facility] [address] [place] [address] Ary Rubio ANP Non-seasonal allergic rhinitis due to other allergic trigger 11/12/2024 Telephone [facility] [address] [place] [address] Ary Rubio ANP Ana Cristina recall 10/09/2024 Refill [facility] [address] [place] [address] Ary Rubio ANP Iron deficiency anemia, unspecified iron deficiency anemia type 10/04/2024 Refill [facility] [address] [place] [address] Ary Rubio ANP Non-seasonal allergic rhinitis due to other allergic trigger 09/17/2024 Telephone [facility] [address] [place] [address] Rea Rose [place] Immunizations (Called pt to update that she is due for pneum shot ,tetanus .spoke to pt is aware also knows the vaccine clinic location.) from Last 3 Months Immunizations Name Administration Dates Next Due Influenza High-dose Quadriva lent Preservative Free 05/22/2023,04/13/2022 Influenza Injectable Quadriv alant Preservative Free IIV4 MDCK 03/14/2017 Influenza Quadrivalent Adjuvanted 05/23/2021, Influenza injectable quadriv alent preservative free 05/25/2016,07/07/2015,08/18/2013 Influenza, High Dose Seasona l, Preservative Free 04/16/2024,04/29/2019 Influenza, IIV3, injectable 05/12/2014 Influenza, Split (incl. carie fied surface antigen) 04/03/2012 Influenza, trivalent, adjuvanted 05/06/2018 Moderna Covid-19 Vaccine 12+ 12/05/2020,11/08/19 21 Pneumococcal Conjugate PCV 13 10/01/2014 Pneumococcal Polysaccharide PPSV23 08/18/2013 Tdap 01/30/2013 Zoster, Recombinant 05/05/2024,08/25/2022 Zoster, live 10/05/2014 Social History Tobacco Use Types Packs/Day Years Used Date Smoking Tobacco: Former Cigarettes 0 08/1965 - 08/1999 Passive Smoke Exposure: Never Smokeless Tobacco: Never Tobacco Cessation:Counseling Given: Not Answered Alcohol Use Standard Drinks/Week Comments Never 0 [...] Orientation Straight 06/04/2022 10 :14 AM EDT Last Filed Vital Signs Vital Sign Reading Time Taken Comments Blood Pressure 138/78 08/18/2024 10:25 AM EST Pulse 80 08/18/2024 10:01 AM EST Temperature 36.4 ??C (97.5 ??F) 08/18/2024 10:[address] Respiratory Rate 14 08/18/2024 10:01 AM EST Oxygen Saturation 99% 02/13/2024 10:26 AM EDT Inhaled Oxygen Concentration - - Weight 48.5 kg (107 lb) 08/18/2024 10:01 AM EST Height 147.3 cm (4' 10 ) 02/13/2024 10:26 AM EDT Body Mass Index 22.36 02/13/2024 10:26 AM EDT Plan of Treatment Upcoming Encounters Date Type Department Care Team (Late st Contact Info) Description 02/25/2025 11:00 AM EDT Office Visit [facility] [address] [place] [address] Ary Rubio, ANP [address] [place] [address] Health Maintenance Due Date Last Done Comments CT Colonography 1952 FIT DNA/Cologuard 1950 FIT 1950 FOBT 1950 Sigmoidoscopy 1950 Alcohol/Substance Use Screening 1964 Hepatitis C Screening 02/08/1970 Pneumococcal Vaccine: 50+ Years (3 of 3 - PCV20 or PCV21) 10/01/2019 10/01/2014, 08/18/2013 DTaP/Tdap/Td Vaccines (2 - Td or Tdap) 01/30/2023 01/30/2013 COVID-19 Vaccine (3 - season) 2024 12/05/2020, 11/07/2020 SDOH Screening 10/31/2024 11/01/2023 Colonoscopy 05/03/2025 05/03/2015 Colorectal Cancer Screening 05/03/2025 Depression Screening 08/18/2025 08/18/2024, 08/18/19 Tobacco Screening 08/18/2025 08/18/2024 Mammogram 02/26/2026 02/27/2024, 02/03, 07/25/2021, Additional history exists RSV Patients and Patients Aged 60 years or older (1 - 1-dose 75+ series) 02/08/2027 Influenza Vaccine Completed 04/16/2024, , 04/13/2022, Additional history exists Zoster Vaccines Completed 05/05/2024, 08/06, 10/05/2014 HIB Vaccines Aged Out No longer eligi ble based on patient's age to complete this topic HPV Vaccines Aged Out No longer eligi ble based on patient's age to complete this topic Hepatitis A Vaccines Aged Out No long er eligible based on patient's age to complete this topic Hepatitis B Vaccines Aged Out No long er eligible based on patient's age to complete this topic IPV Vaccines Aged Out No longer eligi ble based on patient's age to complete this topic Meningococcal Vaccine Aged Out No nasra kev eligible based on patient's age to complete this topic RSV under 20 months Aged Out No longe r eligible based on patient's age to complete this topic Rotavirus Vaccines Aged Out No longer eligible based on patient's age to complete this topic Procedures Procedure Name Priority Date/Time Associated Diagnosis Comments BI MAMMOGRAM SCREENING TOMOSYNTHESIS BILATERAL Routine 02/27/2024 9:35 AM EDT HM COLONOSCOPY Routine 05/03/2015 from Last 3 Months or Most Recently Relevant to Health Maintenance Results * BI Mammogram Screening Tomosynthesis Bilateral (02/27/2024 9:35 AM EDT) Anatomical Region Laterality Modality Breast Bilateral Mammography 02/27/2024 9:35 AM EDT Narrative 03/18/2024 8:59 PM EDT ? [facility] ? [address] ?[place] [address] ? Mammography Report ? Signed ? Patient: Castillo,Samia ?MR#: [id number] ?? 43 ? : 1950 ?Acct:[id number] ? Age/Sex: 74 / F ?ADM Date: 02/26/ ? Loc: HO.MAMMO ? Attending Dr: Ary Rubio HEAVY MACHINERY OPERATOR ? Ordering Physician: RAMIRO,ARY SHAIKH ?Results: 1Negative ? Date of Service: 02/26/ ?Follow Up: 1 Year From Orig ?? inal Mammogram ? Procedure(s): MM tomosynthesis screening BI ?? Accession Number(s): [id number] ? cc: RAMIRO,ARY HEAVY MACHINERY OPERATOR ? EXAMINATION: ?? MM SCREENING DIGITAL BREAST TOMOSYNTHESIS, BILATERAL ? CLINICAL INFORMATION: ? Screening. Asymptomatic. ? COMPARISON: ?? Mammography: This study is compared with prior exams dating back to ?? 2018. ? TECHNIQUE: ?? Digital breast tomosynthesis is performed in both the craniocaudal and ?? mediolateral oblique views along with computer-aided detection (CAD). ?? Synthesized 2D images are generated from the tomosynthesis. ? FINDINGS: ?? There are scattered areas of fibroglandular density (ACR BI-RADS breast ?? composition Category b). ? There are no significant masses, abnormal calcifications, or other ?? abnormalities. ? MM/MM tomosynthesis screening BI ?? IMPRESSION: ?? No mammographic evidence of malignancy. ? ASSESSMENT: ? BI-RADS BI-RADS 1 - Negative ? RECOMMENDATION: ?? Routine annual mammography screening. ? 1 year F/U ? This examination should not preclude the clinical evaluation of a ?? suspicious palpable abnormality. ? This patient's information was entered into a reminder system with a ?? target due date for their next mammogram. ? Dictated By: ?Ayala Stinson MD ? Signed By: ?<Electronically signed by Ayala Stinson MD in OV> ? 03/18/242054 ? DD/ 0935 ? TD/TT: ? Insole Rounder: ? Procedure Note Donbaldo, Image - 03/18/2024 [place] [facility] [address] [place] [address] Mammography Report Signed Patient: Jesse Castillo#: [id number] 43 : 2Acct:[id number] Age/Sex: 74 / FADM Date: 02/27/24 Loc: ANJELICA Attending Dr: Ary Rubio HEAVY MACHINERY OPERATOR Ordering Physician: ARY RUBIO NPResults: 1Negative Date of Service: 02/27/24Follow Up: 1 Year From Orig inal Mammogram Procedure(s): MM tomosynthesis screening BI Accession Number(s): [id number] cc: ARY RUBIO NP EXAMINATION: MM SCREENING DIGITAL BREAST TOMOSYNTHESIS, BILATERAL CLINICAL INFORMATION: Screening. Asymptomatic. COMPARISON: Mammography: This study is compared with prior exams dating back to 2018. TECHNIQUE: Digital breast tomosynthesis is performed in both the craniocaudal and mediolateral oblique views along with computer-aided detection (CAD). Synthesized 2D images are generated from the tomosynthesis. FINDINGS: There are scattered areas of fibroglandular density (ACR BI-RADS breast composition Category b). There are no significant masses, abnormal calcifications, or other abnormalities. MM/MM tomosynthesis screening BI IMPRESSION: No mammographic evidence of malignancy. ASSESSMENT: BI-RADS BI-RADS 1 - Negative RECOMMENDATION: Routine annual mammography screening. 1 year F/U This examination should not preclude the clinical evaluation of a suspicious palpable abnormality. This patient's information was entered into a reminder system with a target due date for their next mammogram. Dictated By: Ayala Stinson MD Signed By: <Electronically signed by Ayala Stinson MD in OV> 03/18/242054 DD/ 4 TD/TT: Insole Rounder: Ary Ramiro LAM IMG BI PROCEDURES Final Result * Colonoscopy (05/03/2015) Colonoscopy Normal Normal Historical Provider HEALTH MAINTENANCE Final Result from Last 3 Months or Most Recently Relevant to Health Maintenance Insurance [id number] DUAL COMPLETE Care Teams Cfd Engineer Relationship Specialty Start Date End Date Ary Rubio ANP [address] [place] [address] [place] [address] PCP - General Family Medicine 06/09/20
== END 2024-12-10 10:54 | disposition home or self-care (01) ==
LOC: HO.HGI 09:39
PROVIDERS: Visit Provider Nurse Practitioner
DX: K59.00 Constipation, unspecified (principal); K21.9 Gastro-esophageal reflux disease without esophagitis
CPT/HCPCS: 99213

== ENCOUNTER → 2024-12-10 09:38 | Outpatient (BNVA) | payer OTHER, SELFPAY | PROVIDERS: Visit Provider Nurse Practitioner | DX: K58.1 Irritable bowel syndrome with constipation (principal); K21.9 Gastro-esophageal reflux disease without esophagitis; K57.90 Diverticulosis of intestine, part unspecified, without perforation or abscess without bleeding | CPT/HCPCS: 99212 ==

== ENCOUNTER 2025-03-03 09:33 | Outpatient (REF) | payer OTHER, SELFPAY ==
--- NOTE | ~2025-03-03 | MR_ITS ---
EXAM: MRI left ankle without contrast TECHNIQUE: Multiplanar multisequence imaging performed through a lower extremity joint without contrast. INDICATION: Anterior left ankle pain and swelling, no trauma PRIOR: August 19, 2024 x-ray FINDINGS: Achilles tendon / plantar fascia: Achilles tendon and plantar fascia are intact without thickening or abnormal signal. Lateral ankle ligaments: Status right ligaments are intact. Talofibular and calcaneal fibular ligaments are intact. Deltoid ligament complex: Deltoid ligament complex is unremarkable Ankle tendons: Peroneal, medial, and the anterior ankle tendons are intact without abnormal signal or size changes. Talar Dome: There is a 5 x 7 mm region of delaminated articular cartilage involving the medial shoulder of talar dome. There is adjacent reactive marrow signal change. Sinus tarsi: The physiologic architecture of sinus tarsi is preserved. Bone/Marrow: Aside from changes in the medial talar dome, bone marrow signal is physiologic. Small enthesophytes are present on the calcaneus at the Achilles tendon and plantar fascial attachments. Articular cartilage: There are no articular cartilage defects aside from talar dome.. Soft Tissues: There are no soft tissue masses, fluid collections, or other abnormalities. MR/MR ankle LT wo con IMPRESSION: 5 x 7 mm area of delaminated articular cartilage involving medial talar dome with adjacent reactive marrow signal change. Small nonspecific calcaneal spurs. Electronically signed by: Darnell Fuentes MD 03/03/2025 11:52 AM EDT
--- OUTSIDE RECORDS SUMMARY | 2025-03-03 10:06 | XMS_ITS | Clinical Summary ---
Author Organization [employer] Address [address] [facility] [address] [place] [address] Care Team Providers Care Pharmacy Affairs Assistant Name Role Phone Ary Rubio Primary Care Provider [phone] Allergies Active Allergy Reactions Criticality Noted Date Comments Penicillins Anaphylaxis High 08/07/2022 Medications docusate sodium (Colace) 100 MG capsule Take 1 capsule by mouth in the morning. 8 Active pancrelipase, Ugs-Anyg-Pafx, (Creon) 70696-99611 units capsule Take 1 capsule by mouth 4 times daily. Active QUEtiapine (SEROquel) 25 MG tablet Take 1 tablet by mouth every 12 (twelve) hours. Active sennosides (Senokot) 8.6 MG tablet Take 1 tablet by mouth at bed time. Active omeprazole (PriLOSEC) [address] capsule TOME MILAGROS C PSULA TODOS LOS D EN LA CAROLINE RAHUL 2 Active lidocaine (Lidoderm) 5 % patch Place 1 patch on the skin in the morning. 2 Active cholecalciferol (Vitamin D-3) 50 MCG (2000 UT) capsule Take 2,000 Units by mouth 1 (one) time each day. Active atorvastatin (Lipitor) 40 MG tablet TAKE 1 TABLET BY MOUTH AT BEDTIME 90 tablet 3 4 Active Diclofenac Sodium 1 % gelIndications:A cute left ankle pain APPLY UP TO 4 TIMES A DAY TO AFFECTED JOINT(S) FOR PAIN/SWELLING 100 g 4 Active ferrous sulfate 325 (65 Fe) MG tabletIndication s:Iron deficiency anemia, unspecified iron deficiency anemia type TOME MILAGROS TABLETA CADA DOS MCKEON CON VIT C OR ORANGE JUICE 45 tablet 3 5 Active Brian-Gest Antacid 500 MG chewable tablet CHEW 1 TABLET (500 MG) 2 TIMES DAILY. 180 tablet 1 Active fluticasone (Flonase) 50 MCG/ACT nasal sprayIndications :Non-seasonal allergic rhinitis due to other allergic trigger SPRAY 1 SPRAY EACH NOSTRIL ONCE DAILY IF NEEDED FOR ALLERGIES. SHAKE GENTLY. BEFORE FIRST USE, PRIME PUMP. AFTER USE, CLEAN TIP AND REPLACE CAP. 48 mL 5 Active ascorbid acid ER (Vitamin C) 500 MG ER capsule TOME 1 CAPSULA POR VIA ORAL TODOS LOS MCKEON EN LA MANANA 90 capsule 3 5 Active Active Problems Problem Noted Date [...] medically necessary. Info given for ENT and [facility] to call for hearing aid appt. Smoker 04/03/2012 08/16/2022 Encounters Date Type Department Care Team Description 02/25/2025 11:00 AM EDT Office Visit [facility] [address] [place] [id number] Ary Rubio ANP Chronic pain of left ankle (Primary Dx); Elevated blood pressure reading without diagnosis of hypertension 02/25/2025 Travel 02/24/2025 Telephone [facility] [address] [place] [address] Ary Rubio ANP 02/18/2025 Patient Outreach [facility] [address] [place], [place] [phone] Ary Rubio ANP Pre-visit Planning (SDOH negative, Tobacco screening negative. ) 01/27/2025 Telephone [facility] [address] [place], [place] [phone] Ary Rubio ANP Referral 01/27/2025 Telephone [facility] [address] [place] [address] Ary Rubio ANP Nurse Triage 12/24/2024 Refill [facility] [address] [place] [address] Ary Rubio ANP Non-seasonal allergic rhinitis due to other allergic trigger 12/02/2024 Refill [facility] [address] [place] [address] Ary Rubio ANP Non-seasonal allergic rhinitis due to other allergic trigger from Last 3 Months Immunizations Immunization Administration Dates Next Due Influenza High-dose Quadriva [...] housing situation today? I have braulio pete 02/18/[address] you li ve. Do you have problems with any of the following? None of the above 02/18/2025 Food Insecurity Answer Date Recorded Within the past 12 months, y ou worried that your food would run out before you got money to buy more: Never True 02/18/2025 Within the past 12 months,th e food you bought just didn't last and you didn't have enough money to get more: Never True Transportation Answer Date Recorded In the past 12 months, has l ack of transportation kept you from medical appts, meetings, work or from getting things needed for daily living? No 02/18/2025 Utilities Answer Date Recorded In the past 12 months, has t he electric, gas, oil or water company threatened to shut off services in your home? No 02/18/2025 Depression Answer Date Recorded Patient Health Questionnaire-2 Score 3 08/18/2024 Internet Access Answer Date Recorded Internet Access Q1 Yes 02/18/2025 Internet Access Q2 Not on file 02/18/2025 Comments Unknown Sex and Gender Information Value Date Recorded Sex Assigned at Female 06/04/2022 10:14 AM EDT Legal Sex Female 10:14 AM EDT Gender Identity Female 06/04/2022 10:14 AM EDT Sexual Orientation Straight 06/04/2022 10 :14 AM EDT Last Filed Vital Signs Vital Sign Reading Time Taken Comments Blood Pressure 151/77 02/25/2025 11:08 AM EDT Pulse 62 02/25/2025 11:08 AM EDT Temperature 36.4 C (97.5 F) 08/18/2024 10:01 AM EST Respiratory Rate 20 02/25/2025 11:08 AM EDT Oxygen Saturation 99% 02/13/2024 10:26 AM EDT Inhaled Oxygen Concentration - - Weight 50.3 kg (111 lb) 02/25/2025 11:08 AM EDT Height 147.3 cm (4' 10 ) 02/25/2025 11:08 AM EDT Body Mass Index 23.2 02/25/2025 11:08 AM EDT Plan of Treatment Upcoming Encounters Date Type Department Care Team (Late st Contact Info) Description 03/15/2025 10:30 AM EDT Clinical Support [facility] [address] [place] [address] Health Maintenance Due Date Last Done Comments CT Colonography 1950 FIT DNA/Cologuard 1950 FIT 1950 FOBT 1950 Sigmoidoscopy 1950 Hepatitis C Screening 02/08/1970 Pneumococcal Vaccine: 50+ Years (3 of 3 - PCV20 or PCV21) 10/01/2019 10/01/2014, 08/18/2013 DTaP/Tdap/Td Vaccines (2 - Td or Tdap) 01/30/2023 01/30/2013 COVID-19 Vaccine (3 - season) 2024 12/05/2020, 11/07/2020 Influenza Vaccine (#1) 2025 , 05/22/2023, 04/13/2022, Additional history exists Colonoscopy 05/03/2025 05/03/2015 Colorectal Cancer Screening 05/03/2025 Depression Screening 08/18/2025 08/18/2024, 08/18/19 25 SDOH Screening 02/18/2026 02/18/2025 Alcohol/Substance Use Screening 02/25/2026 02/25/2025 Tobacco Screening 02/25/2026 02/25/2025 Mammogram 02/26/2026 02/27/2024, 02/03, 07/25/2021, Additional history exists RSV Patients and Patients Aged 60 years or older (1 - 1-dose 75+ series) 02/08/2027 Zoster Vaccines Completed 05/05/2024, 08/06, 10/05/2014 HIB [...] patient's age to complete this topic Meningococcal B Vaccine Aged Out No l onger eligible based on patient's age to complete [...] Procedure Name Priority Date/Time Associated Diagnosis Comments AMB REFERRAL TO PODIATRY Routine 12/17/2024 Acute left ankle pain Calcaneal spur of foot, left BI MAMMOGRAM SCREENING TOMOSYNTHESIS BILATERAL Routine 02/27/2024 9:35 AM EDT HM COLONOSCOPY Routine 05/03/2015 from Last 3 Months or Most Recently Relevant to Health Maintenance Results * Referral to Podiatry (12/17/2024) Ary Rubio ANP OUTPATIENT REFERRAL ORDERABLES F inal Result * BI Mammogram Screening Tomosynthesis Bilateral (02/27/2024 9:35 AM EDT) Anatomical Region Laterality Modality Breast Bilateral Mammography 02/27/2024 9:35 AM EDT Narrative 03/18/2024 8:59 PM EDT [facility] [place] [address] Mammography Report Signed Patient: Samia Castillo MR#: [id number] 43 : 1950 Acct:[id number] Age/Sex: 74 / F ADM Date: 02/27/24 Loc: HO.MAMMO Attending Dr: Ary Rubio NP Ordering Physician: ARY RUBIO NP Results: 1Negative Date of Service: 02/27/24 Follow Up: 1 Year From Orig inal Mammogram Procedure(s): MM tomosynthesis screening BI Accession Number(s): [id number] cc: ARY RUBIO NP EXAMINATION: MM SCREENING [...] MD in OV> 03/18/242054 DD/ 4 TD/TT: Vp Revenue Cycle: Procedure Note Donotuseinterpreter, Image - 03/18/2024 [facility] [address] [place], [place] [address] Mammography Report Signed Patient: Jesse Castillo#: [id number] 43 : 2Acct:[id number] Age/Sex: 74 / FADM Date: 02/27/24 Loc: DADAO Attending Dr: Ary Rubio NP Ordering Physician: ARY RUBIO NPResults: 1Negative Date of Service: 02/27/24Follow Up: 1 Year From Orig inal Mammogram Procedure(s): MM tomosynthesis screening BI Accession Number(s): [id number] cc: ARY RUBIO NP EXAMINATION: MM SCREENING [...] Ayala Stinson MD in OV> 03/18/242054 DD/ 0935 TD/TT: Vp Revenue Cycle: Ary LAM IMG BI PROCEDURES Final Result * Colonoscopy (05/03/2015) Colonoscopy Normal Normal Historical Provider HEALTH MAINTENANCE Final Result from Last 3 Months or Most Recently Relevant to Health Maintenance Insurance [id number] DUAL COMPLETE Care Teams Pharmacy Affairs Assistant Relationship Specialty Start Date End Date Ary Rubio ANP [address] [place] [phone] PCP - General Family Medicine 06/09/20
== END 2025-03-03 09:34 | disposition home or self-care (01) ==
LOC: HO.MRI 09:33
PROVIDERS: PCP Nurse Practitioner Primary Care; Visit Provider Nurse Practitioner Primary Care
DX: M25.572 Pain in left ankle and joints of left foot (principal); G89.29 Other chronic pain
CPT/HCPCS: 73721

== ENCOUNTER → 2025-03-03 10:14 | Outpatient (BNV) | payer OTHER, SELFPAY | PROVIDERS: PCP Nurse Practitioner Primary Care; Visit Provider Radiology Diagnostic Radiology | DX: M24.172 Other articular cartilage disorders, left ankle (principal) | CPT/HCPCS: 73721 ==

== ENCOUNTER 2025-03-11 09:15 | Outpatient (REF) | payer OTHER, SELFPAY ==
--- OUTSIDE RECORDS SUMMARY | 2025-03-11 09:39 | XMS_ITS | Encounter Summary ---
Author Organization [employer] Address [address] [facility] 7[address] [place] [address] Care Team Providers Care Curator Name Role Phone Aster Valle Primary Care Provider [phone] Reason for Visit * Reason Comments Med Refill Encounter Details Date Type Department Care Team ([facility] st Contact Info) Description 12/02/2024 Refill [facility] [address] [place], [place] [phone] Aster Valle ANP [address], [place] [phone] Non-seasonal allergic rhinitis due to other allergic [...] Description 03/15/2025 10:30 AM EDT Clinical Support [facility] [address] [place] [address] documented as of this encounter Visit Diagnoses Diagnosis Non-seasonal allergic rhinitis due to other allergic trigger documented in this encounter Additional Health Concerns Assessment Noted Time PHQ-9 Depression Total Score: 3 08/18/19 25 10:42 AM EST documented as of this encounter Care Teams Curator Relationship Specialty Start Date End Date Aster Valle ANP [address] [place] [address] PCP - General Family Medicine 06/09/20 documented as of this encounter
== END 2025-03-11 09:16 | disposition home or self-care (01) ==
LOC: HO.MAMMO 09:15
PROVIDERS: PCP Nurse Practitioner Primary Care; Visit Provider Nurse Practitioner Primary Care
DX: Z12.31 Encounter for screening mammogram for malignant neoplasm of breast (principal)
CPT/HCPCS: 77063; 77067

== ENCOUNTER → 2025-03-11 10:30 | Outpatient (BNV) | payer OTHER, SELFPAY | PROVIDERS: PCP Nurse Practitioner Primary Care; Visit Provider Radiology Body Imaging | DX: Z12.31 Encounter for screening mammogram for malignant neoplasm of breast (principal) | CPT/HCPCS: 77063; 77067 ==

== ENCOUNTER 2025-04-05 10:10 | Emergency (ER) | payer OTHER, SELFPAY ==
--- NOTE | ~2025-04-05 | CT_ITS ---
CLINICAL HISTORY: abdominal pain, LLQ CT abdomen and pelvis with contrast Comparison: CT/REG/VT/SR - CT ABDOMEN PELVIS W IV CON - 07/11/23 21:02 EST Findings: The lung bases are clear. Unchanged irregular appearance of the gallbladder. There is a questionable gallstone measuring 0.4 cm. There is questionable wall thickening along the fundus. Right upper quadrant ultrasound is recommended for further evaluation. Increased prominence of the left renal pelvis. Wall thickening of the sigmoid colon which may be due to patient's history of prior diverticulitis however underlying mass is not excluded. No evidence of active inflammation/adjacent fat stranding. Atherosclerotic vascular calcifications. 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 Diffusely thickened urinary bladder wall which may be due to cystitis, chronic bladder outlet obstruction, or underdistention. No acute fracture. IMPRESSION: 1. Diffusely thickened urinary bladder wall which may be due to cystitis, chronic bladder outlet obstruction, or underdistention. 2. Wall thickening of the sigmoid colon which may be due to patient's history of prior diverticulitis however underlying mass is not excluded. No evidence of active inflammation/adjacent fat stranding. 3. Unchanged irregular appearance of the gallbladder. There is a questionable gallstone measuring 0.4 cm. There is questionable wall thickening along the fundus. Right upper quadrant ultrasound is recommended for further evaluation. 4. Increased prominence of the left renal pelvis. This document has been electronically signed by: Kenton Sanchez DO on 04/05/2025 12:26:02
[2025-04-05 10:12] VITALS: BP 165/72; PULSE 81; RESP 18; TEMP 37.2; O2SAT 99
--- NOTE | 2025-04-05 10:19 | ED.GENADULT ---
HPI - General Adult General Chief complaint: Abdominal Pain Stated complaint: abd pain Time Seen by Provider: 04/05/25 10:43 Source: patient and family (Patient's son) Mode of arrival: ambulatory Limitations: no limitations and language barrier (Hospital healthcare interpreter use as well) History of Present Illness ED Provider: HPI narrative: 75-year-old woman with a history of iron-deficiency anemia with history of transfusions, recurrent diverticulitis necessitating antibiotics presenting with abdominal pain left lower quadrant radiating up around her back without hematuria without fevers or chills nausea or vomiting, no hematemesis or hematochezia reported. She reports increased weakness. Related Data Home Medications ?Medication ?Instructions ?Recorded ?Confirmed atorvastatin 40 mg tablet 40 mg PO BEDTIME 10/03/20 08/07/23 fluticasone propionate 50 1 spray intranasal DAILY 10/13/20 08/07/23 mcg/actuation nasal spray,suspension calcium carbonate (Brian-Gest 200 mg PO BID 03/27/23 08/07/23 Antacid) inulin 2 gram chewable tablet g PO 08/07/23 08/07/23 (Fiber Gummies) diclofenac sodium 1 % topical gel g topical pain 06/12/24 quetiapine 25 mg tablet 25 mg PO BEDTIME 12/10/24 Previous Rx's ?Medication ?Instructions ?Recorded ascorbic acid (vitamin C) 500 mg 500 mg PO DAILY #30 caps 10/29/22 capsule,extended release (Vitamin C) ferrous sulfate 325 mg (65 mg 325 mg PO DAILY #30 tabs 10/29/22 iron) tablet (Iron (ferrous sulfate)) docusate sodium 100 mg capsule 100 mg PO BID #60 caps 12/10/24 ochhdb-voqqcnjr-qppnhez 2 cap PO BID #120 caps 12/10/24 24,000-76,000-120,000 unit capsule,delayed rel (Creon) omeprazole 40 mg capsule,delayed 40 mg PO DAILY #90 caps 12/10/24 release sennosides 8.6 mg tablet (senna) 17.2 mg (2 x 8.6 mg) PO BEDTIME 12/10/24 PRN for constipation #60 tabs cefdinir 300 mg capsule 300 mg PO BID 10 days #20 caps 04/05/25 Allergies Allergy/AdvReac Type Severity Reaction Status Date / Time Penicillins (PENICILLINS) Allergy Severe THROAT Verified 04/05/25 10:18 CLOSES/HIVES Review of Systems Constitutional: Constitutional: Reports as per HPI [facility] Past Medical History Medical History IBS (irritable bowel syndrome) Tubular adenoma of colon Diverticulitis Hyperlipidemia Adenomyomatosis of gallbladder Constipation GERD (gastroesophageal reflux disease) Surgical History Hx of laminectomy Hx of colonoscopy Hx of foot surgery History of esophagogastroduodenoscopy (EGD) Hx of tubal ligation Family History Family History Family/Other No problems noted. Social History Social History Household Members: None Housing: Apartment Do you presently have visiting nurse or other home services: Yes Alcohol intake: never Comment: 1 Patient Tobacco Use Status: Never used Tobacco service: No Current occupational status: retired Physical Exam ED Vital Signs: Vital Signs - 24 hr 04/05/25 10:12 04/05/25 10:52 04/05/25 13:02 Temperature 98.9 F 98.3 F 98.3 F Pulse Rate 81 75 75 Respiratory Rate 18 18 18 Blood Pressure 165/72 H 162/74 H 147/54 H Pulse Oximetry 99 99 98 Oxygen Delivery Method Room Air Room Air Room Air BMI result Body Mass Index 20.0 Const Other: Gen: ?Overall well-appearing patient HEENT: PERRLA, EOMI, MMM, no pale conjunctiva Neck: Supple, no LAD CV: RRR, no obvious murmurs appreciated Resp: ?No wheezing rales rhonchi no stridor moving air well Abd: ?Bowel sounds are present, left lower quadrant tenderness no rebound no rigidity MSK: FROM, strength 5/5 all extremities Skin: Warm, dry, intact, Neuro: ?Alert and oriented x3, moving upper and lower extremities symmetrically, no obvious facial asymmetry noted Course Course Course Narrative: RME: 75-year-old female history of diverticulitis presents to ED for left lower quadrant abdominal pain radiating to left flank. Patient has started taking old antibiotics was prescribed from last diverticulitis bowel which was 2 years ago. Patient denies any upper abdominal pain nausea vomiting or blood in stool. Labs CT scan ordered Medications Administered Discontinued Medications Generic Name Dose Route Start Last Admin Trade Name Toña PRN Reason Stop Dose Admin Sodium Chloride 1,000 mls @ 999 mls/hr 04/05/25 11:00 04/05/25 13:17 Ns IV 04/05/25 12:00 Infused .Q1H1M JAMES Infusion Iohexol 100 ml 04/05/25 11:53 04/05/25 11:54 Iohexol 350 Mg/Ml 100 Ml Infus..Btl IV 04/05/25 11:54 85 ml ONCE ONE Administration Ketorolac Tromethamine 15 mg 04/05/25 11:05 04/05/25 11:27 Ketorolac Tromethamine 15 Mg/Ml Vial IVPUSH 04/05/25 11:06 15 mg ONCE ONE Administration Medical Decision Making Medical Decision Making MDM Narrative: Patient is presenting with suprapubic discomfort, left lower quadrant pain, has had history of diverticulitis, less antibiotics about a year ago, no dysuria no hematuria no hematemesis or hematochezia, see my differential as below she did have history of anemia requiring blood transfusion but it was deemed to be iron deficiency anemia and her numbers have since been stable 13:[address] findings with the patient and her son utilizing our healthcare interpreter concentrating in the fact that patient will need antibiotics she took cefdinir with good response,, and GI involved in her care for possible colonoscopy to exclude malignancy Differential Diagnosis Differential Diagnoses: The differential diagnosis associated with the presentation includes (Diverticulitis, anemia, UTI, dehydration, GI bleed) Admission/Observation Consideration of admission/observation: Escalation of care including admission/observation considered 2022 Emergency Medicine Coding Guide from [email or web address] on 04/05/2025 All calculations should be rechecked by clinician prior to use RESULT SUMMARY: 5 Estimated Level of Service Problems: High (5) Risk: High (5) Data: Extensive (5) NARRATIVE MDM: This patient's problem complexity is High as patient: may have an acute or chronic illness/injury posing a threat to life or body function. This patient's risk is High due to: overall presentation requiring evaluation for a potentially High-risk process. This patient's data complexity is Extensive due to: -multiple tests ordered -external notes reviewed -independent interpretation of imaging or EKG INPUTS: Number and Complexity ?> 2 = 5: illness/injury w/life or body threat (b) Risk level ?> 4 = High Tests ordered ?> 3 = >= Tests results reviewed (excluding labs) ?> 1 = 1 Prior external notes reviewed ?> 1 = 1 Assessment requiring and independent historian ?> 0 = No Independent interpretation of tests ?> 1 = Yes Discussed management/test interpretation w/external professional ?> 0 = No Lab Data MDM Lab Attestation statement: I reviewed the patient's lab results. 04/05/25 10:28 04/05/25 10:28 Labs: Lab Results 04/05/25 04/05/25 Range/Units 10:28 11:59 WBC 6.7 (4.8-10.8) X10*3/uL RBC 4.93 (4.20-5.50) X10*6/uL Hgb 14.2 (12.0-16.0) g/dl Hct 41.2 (37.0-47.0) % MCV 83.6 (80.0-98.0) fL MCH 28.8 (27.0-33.0) pg MCHC 34.5 (31.0-35.0) g/dl RDW 13.6 (11.0-16.0) % Plt Count 254 (160-400) X10*3/uL MPV 10.6 (9.4-12.3) fL Immature Gran % (Auto) 0.4 (0.0-0.4) % Neut % (Auto) 65.2 (45-73) % Lymph % (Auto) 20.9 (20-40) % Rogers % (Auto) 11.4 H (2-11) % Eos % (Auto) 1.2 (0-4) % Baso % (Auto) 0.9 (0-2) % Lymph # (Auto) 1.4 (1.2-4.9) X10*3/uL Rogers # (Auto) 0.8 (0.1-1.2) X10*3/uL Eos # (Auto) 0.1 (0.0-0.4) X10*3/uL Baso # (Auto) 0.1 (0.0-0.2) X10*3/uL Abs Immat Gran (auto) 0.03 (0.00-0.03) X10*3/uL Absolute Neuts (auto) 4.4 (2.0-8.3) x10*3/uL Absolute Nucleated RBC 0.000 (0.0-0.012) X10*3/uL Nucleated RBC % (auto) 0.0 (0.0-0.2) /100WBC PT 11.7 (10.9-12.4) SEC INR 1.0 (0.9-1.1) APTT 28.0 (26.7-34.1) SEC Sodium 141 (135-145) mmol/L Potassium 3.9 (3.3-5.1) mmol/L Chloride 108 (96-108) mmol/L Carbon Dioxide 24 (22-29) mmol/L Anion Gap 13 (12-20) BUN 10 (9-16) mg/dL Creatinine 0.76 (0.5-1.4) mg/dL Estim Creat Clear Calc 53.2 Estimated GFR > 60 Random Glucose 112 (60-115) mg/dL Calcium 9.5 D (8.4-10.2) mg/dL Total Bilirubin 0.7 (0.0-1.0) mg/dL AST 33 H (5-31) U/L ALT 33 H (0-31) U/L Alkaline Phosphatase 85 (39-117) U/L Total Protein 8.0 (6.5-8.0) g/dL Albumin 4.6 (3.5-5.0) g/dL Lipase 24 (8-78) U/L Urine Color Yellow Urine Appearance Clear Urine pH 7.5 (5.0-9.0) Ur Specific [place] <= 1.005 (1.005-1.025) Urine Protein Negative (Neg-Trace) mg/dL Urine Glucose (UA) Negative (Negative) mg/dL Urine Ketones Negative (Negative) mg/dL Urine Blood Negative (Negative) Urine Nitrite Negative (Negative) Ur Leukocyte Esterase Negative (Negative) Radiology Impression Discussion of test interpretation with radiology: I have reviewed the radiologist's reading. External Record Review External record reviewed: Inpatient record and Prior outpatient labs Prescription Management I considered prescription management with: Pain Medication and Antibiotic Discharge Plan Discharge Clinical Impression: Diverticulitis large intestine Patient Disposition: Home, Self-Care Additional Instructions: I am recommending you follow up with the PCP for re-evaluation after finishing up antibiotics, you may have diverticulitis, you may need colonoscopy to make sure you do not have underlying call him mass as well, this is why I would like you to follow up with your PCP, your blood work urinalysis otherwise reassuring Any other issues or concerns come back to the ER Prescriptions: New cefdinir 300 mg capsule 300 mg PO BID 10 Days Qty: 20 0RF No Action ferrous sulfate [Iron (ferrous sulfate)] 325 mg (65 mg iron) tablet 325 mg PO DAILY Qty: 30 1RF ascorbic acid (vitamin C) [Vitamin C] 500 mg capsule, extended release 500 mg PO DAILY Qty: 30 0RF fluticasone propionate 50 mcg/actuation spray,suspension 1 spray intranasal DAILY Rx Instructions: administer into each nostril atorvastatin 40 mg tablet 40 mg PO BEDTIME quetiapine 25 mg tablet 25 mg PO BEDTIME calcium carbonate [Brian-Gest Antacid] 200 mg calcium (500 mg) tablet,chewable 200 mg PO BID docusate sodium 100 mg capsule 100 mg PO BID Qty: 60 6RF omeprazole 40 mg capsule,delayed release(DR/EC) 40 mg PO DAILY Qty: 90 2RF sennosides [senna] 8.6 mg tablet 17.2 mg PO BEDTIME PRN (Reason: for constipation) Qty: 60 6RF Creon 24,000-76,000 -120,000 unit capsule,delayed release(DR/EC) 2 cap PO BID Qty: 120 6RF Fiber Gummies 2 gram tablet,chewable PO diclofenac sodium 1 % gel topical Referrals: Aster Valle NP [Primary Care Provider, Internal Medicine] - 2 weeks Referral Note: Recommend referral for GI for colonoscopy to exclude colon mass, see CT findings Interventions: ED Discharge Assessment Last Done: 04/05/25 13:58 Discharge Date/Time: 04/05/25 13:59 Print Language: Arabic
[2025-04-05 10:35] LABS: Hematocrit 41.2 % (37.0-47.0); Hemoglobin 14.2 g/dl (12.0-16.0); Imm Gran Abs Auto 0.03 X10*3/uL (0.00-0.03); Imm Gran Pct Auto 0.4 % (0.0-0.4); Lymphocytes Absolute Auto 1.4 X10*3/uL (1.2-4.9); MANUAL DIFF FLAG NO; Mean Corpuscular HGB Conc 34.5 g/dl (31.0-35.0); Mean Corpuscular Hemoglobin 28.8 pg (27.0-33.0); Mean Corpuscular Volume 83.6 fL (80.0-98.0); NRBC Abs Auto 0.000 X10*3/uL (0.0-0.012); NRBC Pct Auto 0.0 /100WBC (0.0-0.2); Platelet Count 254 X10*3/uL (160-400); Red Blood Count 4.93 X10*6/uL (4.20-5.50); White Blood Count 6.7 X10*3/uL (4.8-10.8)
[2025-04-05 10:43] LABS: INTERNATIONAL NORM RATIO 1.0 (0.9-1.1); Prothrombin Time 11.7 SEC (10.9-12.4)
[2025-04-05 10:46] LABS: Partial Thromboplastin Time 28.0 SEC (26.7-34.1)
[2025-04-05 10:52] VITALS: BP 162/74; PULSE 75; RESP 18; TEMP 36.8; O2SAT 99
[2025-04-05 11:09] LABS: Alanine Aminotransferase 33 U/L (0-31); Albumin Level 4.6 g/dL (3.5-5.0); Alkaline Phosphatase 85 U/L (39-117); Anion Gap 13 (12-20); Aspartate Amino Transferase 33 U/L (5-31); Blood Urea Nitrogen 10 mg/dL (9-16); Calcium 9.5 mg/dL (8.4-10.2); Carbon Dioxide 24 mmol/L (22-29); Chloride 108 mmol/L (96-108); Creatinine Clr Calc Pharmacy 53.2; Estimated Glomerular Filt Rate > 60; Lipase 24 U/L (8-78); Potassium 3.9 mmol/L (3.3-5.1); Sodium 141 mmol/L (135-145); Total Protein 8.0 g/dL (6.5-8.0)
[2025-04-05] MEDS: iohexoL 350 MG/ML 100 ML INFUS..BTL IV (11:54)
[2025-04-05 12:07] LABS: Appearance Urine Clear; Glucose Urine UA Negative (Negative); PH 7.5 (5.0-9.0); Specific Gravity - Urine <= 1.005 (1.005-1.025)
[2025-04-05 13:02] VITALS: BP 147/54; PULSE 75; RESP 18; TEMP 36.8; O2SAT 98
[2025-04-05 13:58] VITALS: BP 147/54; PULSE 75; RESP 18; TEMP 36.8; O2SAT 98
== END 2025-04-05 13:59 | disposition home or self-care (01) ==
PROVIDERS: Physician Assistant; Emergency Provider Emergency Medicine; PCP Nurse Practitioner Primary Care
DX: K57.32 Diverticulitis of large intestine without perforation or abscess without bleeding (principal); R10.32 Left lower quadrant pain; D50.9 Iron deficiency anemia, unspecified; Z79.899 Other long term (current) drug therapy
CPT/HCPCS: 36415; 74177; 80053; 81003; 83690; 85025; 85610; 85730; 96361; 96374; 99284; 99285; J1885; Q9967

== ENCOUNTER → 2025-04-05 10:56 | Outpatient (BNV) | payer OTHER, SELFPAY | PROVIDERS: Emergency Provider Emergency Medicine; PCP Nurse Practitioner Primary Care; Visit Provider Family Medicine | DX: R10.32 Left lower quadrant pain (principal); N32.89 Other specified disorders of bladder; K63.89 Other specified diseases of intestine | CPT/HCPCS: 74177 ==

== ENCOUNTER → 2025-05-19 12:51 | Outpatient (AMB) | payer OTHER, SELFPAY ==
[2025-05-19 13:34] VITALS: BP 143/71; PULSE 69; BMI 20.3
--- NOTE | 2025-05-19 13:34 | A.OFFVIS_ITS ---
Vital Signs 05/19/25 13:34 Height 5 ft 3 in Weight 114 lb 13.773 oz BMI 20.3 BP 143/71 H Blood Pressure Location Rt brachial Position Sitting Pulse 69 Intake Visit Reasons: Follow up diverticulitis (ER 04/05) Intake Note: Patient in office today in follow up of diverticulitis. CC: Patient denies having any new GI symptoms or concerns. Surfacing Machine Operator Required: Yes Surfacing Machine Operator Language: Nigerian Accompanied by: Self / Same As Patient Allergies Penicillins (PENICILLINS) Allergy (Severe, Verified 05/19/25 13:51) THROAT CLOSES/HIVES HPI HPI Follow up diverticulitis (ER 04/05): Details: Assessment & Plan (1) Constipation: Code(s): K59.00 - Constipation, unspecified Category: Medical (2) GERD (gastroesophageal reflux disease): Code(s): K21.9 - Gastro-esophageal reflux disease without esophagitis Category: Medical Plan Nigerian #son translates per pt request She continues on her creon, colace, senna and omeprazole with good results. She remains satisfied with her GI regimen. Return office visit in 6 months. Medications: Refilled docusate sodium 100 mg PO BID 60 caps 6RF omeprazole 40 mg PO DAILY 90 caps 2RF sgqozs-mtdaxxdr-qushacj 24,000-76,000 -120,000 unit (Creon) 2 caps PO BID 120 caps 6RF K58.9 - Irritable bowel syndrome, unspecified sennosides (senna) 17.2 mg (2 x 8.6 mg) PO BEDTIME PRN 60 tabs 6RF for constipation K59.00 - Constipation, unspecified kexplw-fppnmwut-fdhreaw 24,000-76,000 -120,000 unit (Creon) 2 caps PO BID 120 caps 6RF K58.9 - Irritable bowel syndrome, unspecified TODAY'S VISIT OMANI #v LIVE [facility] Medical History IBS (irritable bowel syndrome) Tubular adenoma of colon Diverticulitis Hyperlipidemia Adenomyomatosis of gallbladder Constipation GERD (gastroesophageal reflux disease) Surgical History Hx of laminectomy Hx of colonoscopy Hx of foot surgery History of esophagogastroduodenoscopy (EGD) Hx of tubal ligation Family History Family/Other No problems noted. Social History Household Members: None Housing: Apartment Do you presently have visiting nurse or other home services: Yes Alcohol intake: never Comment: 1 Patient Tobacco Use Status: Never used Tobacco service: No Current occupational status: retired Review of Systems Const Denies fatigue, Denies fever(s), Denies night sweats, Denies poor appetite and Denies weight loss ENT Reports Normal hearing present, Denies dental pain, Denies dysphagia, Denies hearing loss, Denies mouth pain, Denies odynophagia, Denies throat swelling, Denies tongue swelling and Reports other (Dentition adequate) Card Reports no additional complaints Resp Reports no additional complaints GI Details: Denies abdominal pain, Denies melena, Denies bloating, Denies hematochezia, Reports constipation, Denies GI cramping, Denies dysphagia, Denies excessive flatus, Denies early satiety, Reports heartburn, Denies diarrhea, Denies nausea, Denies odynophagia, Denies vomiting and Denies hematemesis Skin/Breast Denies pruritus, Denies lesions, Denies rash and Denies jaundice Neuro Reports Normal hearing present and Denies Abnormal speech present Endo Denies fatigue Aller/Immun Denies throat swelling and Denies tongue swelling Physical Exam Vital Signs: Last Vital Signs Pulse 69 05/19/25 13:34 BP 143/71 H 05/19/25 13:34 BMI result Body Mass Index 20.3 Const General: cooperative, no acute distress, well developed and well groomed Nutritional Appearance: average body habitus, well nourished and obese Orientation/consciousness: oriented to person, oriented to place and oriented to time Limitations: language barrier HEENT Head: Yes normocephalic and Yes atraumatic Eyes General: appearance normal, both eyes and all related structures Pupils: Equal, round and reactive pupils present Neck Neck: Yes normal visual inspection and Yes no lymphadenopathy Thyroid: Thyroid normal Resp Effort & Inspection: normal respiratory effort and able to speak in complete sentences Auscultation: clear to auscultation bilaterally Cardio Rate: regular rate Rhythm: regular rhythm Heart sounds: Normal, physiologic split S2 sound present Peripheral pulses: radial pulses present and posterior tibial pulses present GI Inspection: No distended and No Abdominal panniculus present Palpation (GI): Soft to palpation, nontender, no guarding, not rigid and No hepatosplenomegaly present Percussion: Yes normal to percussion Auscultation: normal bowel sounds Rectal Exam - Female: deferred Skin General skin exam: no rashes or lesions noted, turgor normal, skin not dry, no jaundice, No spider nevi and no striae Rashes: no rashes Nails: normal Neuro General: oriented to person, oriented to place and oriented to time Cranial nerves: Yes Equal, round and reactive pupils present and Yes Normal hearing present Speech: No Abnormal speech present Extrem General: Yes normal to inspection, No clubbing, No cyanosis and No edema Psych Appearance: grossly normal and well kempt Mental Status: mental status grossly normal Speech and movement: Normal speech and movement present Affect: normal affect Attitude: cooperative Thought process: Normal thought process present and not confabulating Thought content: Normal thought content present Insight: Limited insight present (Psych) Judgement: Limited judgement present (Psych) Assessment & Plan Assessment & Plan (1) Constipation: Code(s): K59.00 - Constipation, unspecified Category: Medical (2) GERD (gastroesophageal reflux disease): Code(s): K21.9 - Gastro-esophageal reflux disease without esophagitis Category: Medical Plan Nigerian # V live Her GI regimen consists of omeprazole, Colace, Creon, and senna. She continues to be satisfied with her GI regimen. She has an upcoming ultrasound asked me if I ordered it, but I look in the computer and this appears to have been ordered by her primary care provider Aster Valle. She wants to know the reason for it being ordered but since I am not the ordering provider I can not provide this to her. There was some findings of gallstones without any wall thickening or inflammation on a CAT scan that was performed in April but other than that I can only guess. The patient denies any abdominal pain ass ociated with this finding. Return office visit in 6 months Medications: Refilled cddkjq-ungiwisb-bayumfz (pork) 24,000-76,000 -120,000 unit (Creon) 2 caps PO BID 120 caps 6RF K58.9 - Irritable bowel syndrome, unspecified sennosides (senna) 17.2 mg (2 x 8.6 mg) PO BEDTIME PRN 60 tabs 6RF for constipation K59.00 - Constipation, unspecified docusate sodium 100 mg PO BID 60 caps 6RF omeprazole 40 mg PO DAILY 90 caps 2RF Coding Level of Care Code Est Pt Level 3 (70992) Diagnoses Constipation K59.00 GERD (gastroesophageal reflux disease) K21.9
--- OUTSIDE RECORDS SUMMARY | 2025-05-19 16:12 | XMS_ITS | Encounter Summary ---
Author Organization [employer] Address [address] [facility] [address] [place] [address] Care Team Providers Care Sand Sifter Name Role Phone Aster Valle Primary Care Provider [phone] Reason for Visit * Reason Comments Med Refill Encounter Details Date Type Department Care Team ([facility] st Contact Info) Description 12/02/2024 Refill [facility]INE [address] [place], [place] [phone] Aster Valle ANP [address] [place], [place] [phone] Non-seasonal allergic rhinitis due to other allergic [...] as of this encounter Plan of Treatment Not on file documented as of this encounter Visit Diagnoses Diagnosis Non-seasonal allergic rhinitis due to other allergic trigger documented in this encounter Additional Health Concerns Assessment Noted Time PHQ-9 Depression Total Score: 3 08/18/19 25 10:42 AM EST documented as of this encounter Care Teams Sand Sifter Relationship Specialty Start Date End Date Aster Valle ANP [address] [place] [id number] PCP - General Family Medicine 06/09/20 documented as of this encounter
--- OUTSIDE RECORDS SUMMARY | 2025-05-19 16:12 | XMS_ITS | Encounter Summary ---
Author Organization [employer] Address [address] [facility] 7t [place] [address] Care Team Providers Care Fixed Wing Pilot Name Role Phone Aster Valle Primary Care Provider [phone] Reason for Visit * Reason Onset Date Comments FYI 10/14/2023 Encounter Details Date Type Department Care Team ([facility] st Contact Info) Description 10/14/2023 Telephone [facility]INE [address] [place], [place] [phone] Aster Valle ANP [address] [place] [address] FYI Social History Tobacco Use Types Packs/Day Years [...] 10:12 AM EDT Tc From Brittney at [facility] calling to inform the PCP after the QuantaFlo test the resultswas a Mild PVD in the left foot any questions please call Brittney at [phone] documented in this encounter Plan of Treatment Not on file documented as of this encounter Visit Diagnoses Not on filedocumented in this encounter Additional Health Concerns Assessment Noted Time PHQ-9 Depression Total Score: 0 03/01/20 23 10:08 AM EDT documented as of this encounter Care Teams Fixed Wing Pilot Relationship Specialty Start Date End Date Aster Valle ANP [address] [place] [phone] PCP - General Family Medicine 06/09/20 documented as of this encounter
--- OUTSIDE RECORDS SUMMARY | 2025-05-19 16:13 | XMS_ITS | Encounter Summary ---
Author Organization [employer] Address [address] [facility] 7t [place] [address] Care Team Providers Care Resp Therapist Name Role Phone Aster Valle Primary Care Provider [phone] Reason for Visit * Reason Comments Med Refill Encounter Details Date Type Department Care Team ([facility] st Contact Info) Description 01/29/2024 Refill [facility] MEDICINE [address] [place], [place] [phone] Aster Valle ANP [address] [place], [place] [phone] Iron deficiency anemia, unspecified iron deficiency anemia [...] documented as of this encounter Care Teams Resp Therapist Relationship Specialty Start Date End Date Aster Valle ANP [address] [place] [address] PCP - General Family Medicine 06/09/20 documented as of this encounter
--- OUTSIDE RECORDS SUMMARY | 2025-05-19 16:13 | XMS_ITS | Clinical Summary ---
Author Organization [employer] Address [address] [facility] [address] [place] [address] Care Team Providers Care Superintendent Car Construction Name Role Phone Ary Rubio CAROLE Primary Care Provider [phone] Allergies Active Allergy Reactions Criticality Noted Date Comments Penicillins Anaphylaxis High 08/07/2022 Medications docusate sodium (Colace) 100 MG capsule Take 1 capsule by mouth in the morning. 8 Active pancrelipase, Qvi-Nqdh-Svqw, (Creon) 17611-13044 units capsule Take 1 capsule by mouth 4 times daily. Active QUEtiapine (SEROquel) 25 MG tablet Take 1 tablet by mouth every 12 (twelve) hours. Active sennosides (Senokot) 8.6 MG tablet Take 1 tablet by mouth at bed time. Active omeprazole (PriLOSEC) [address] capsule TOME MILAGROS C PSULA TODOS LOS D EN LA MA RAHUL 2 Active lidocaine (Lidoderm) 5 % patch Place 1 patch on the skin in the morning. 2 Active cholecalciferol (Vitamin D-3) 50 MCG (2000 UT) capsule Take 2,000 Units by mouth 1 (one) time each day. Active Diclofenac Sodium 1 % gelIndications:Ac [place] left ankle pain APPLY UP TO 4 TIMES A DAY TO AFFECTED JOINT(S) FOR PAIN/SWELLING 100 g 4 Active ferrous sulfate 325 (65 Fe) MG tabletIndications :Iron deficiency anemia, unspecified iron deficiency anemia type TOME MILAGROS TABLETA CADA DOS MCKEON CON VIT C OR ORANGE JUICE 45 tablet 3 5 Active ascorbid acid ER (Vitamin C) 500 MG ER capsule TOME 1 CAPSULA POR VIA ORAL TODOS LOS MCKEON EN LA [facility] 90 capsule 3 05/22/202 5 Active Blood Pressure Monitoring kitIndications:El evated blood pressure reading without diagnosis of hypertension Use to check blood pressure daily 1 kit 5 Active fluticasone (Flonase) 50 MCG/ACT nasal sprayIndications: Non-seasonal allergic rhinitis due to other allergic trigger SPRAY 1 SPRAY EACH NOSTRIL ONCE DAILY IF NEEDED FOR ALLERGIES. SHAKE GENTLY. BEFORE FIRST USE, PRIME PUMP. AFTER USE, CLEAN TIP AND REPLACE CAP. 48 mL 5 Active atorvastatin (Lipitor) 40 MG tablet TOME 1 TABLETA POR VIA ORAL TODOS LOS MCKEON AL ACOSTARSE 90 tablet 3 5 Active Brian-Gest Antacid 500 MG chewable tablet CHEW 1 TABLET (500 MG) 2 TIMES DAILY. 180 tablet 1 5 Active Active Problems Problem Noted Date Diagnosed Date Superior mesenteric artery stenosis 04/08/2025 Diverticulitis 03/01/2023 Assessment & Plan (03/01/2023 10:58 [...] bowel syndrome 08/05/1959 Migraine 08/05/1959 Seizure disorder (CMS/HCC) 08/05/1959 Resolved Problems Problem Noted Date Diagnosed Date Resolved Date Bilateral hearing loss 03/01/202303/01 Overview (03/01/2023): Had exam w/ Dr. Paul who advised that hearing aids were medically necessary. Info given for ENT and [facility] to call for hearing aid appt. Smoker 04/03/2012 08/16/2022 Encounters Date Type Department Care Team Description 04/10/2025 Refill [facility] [address] [place] [address] Ary Rubio ANP 04/08/2025 11:30 AM EDT Office Visit [facility] [address] [place] [address] Ary Rubio ANP Diverticulitis (Primary Dx); Superior mesenteric artery stenosis (CMS/HCC); Calculus of gallbladder without cholecystitis without obstruction; Sigmoid thickening 04/08/2025 Telephone [facility] [address] [place] [address] Lissette Abarca, designer and patternmaker Order 04/08/2025 Travel 04/07/2025 Refill [facility] [address] [place] [address] Ary Rubio ANP 04/06/2025 Telephone [facility] [place] [address] Ary Rubio ANP ER Follow-up 04/05/2025 Orders Only GENERIC EXTERNAL DATA DEPARTMENT Provider, Generic External Data 03/25/2025 Results Follow-Up [facility] [place] [address] Ary Rubio ANP MR Ankle w/o Contrast Left 03/22/2025 Refill [facility] [place] [address] Ary Rubio ANP Non-seasonal allergic rhinitis due to other allergic trigger 03/15/2025 10:30 AM EDT Clinical Support [facility] [place] [address] Tamiko Chavez, LORENA Elevated blood pressure reading without diagnosis of hypertension 03/15/2025 Orders Only [facility] [place] [address] Tamiko Chavez RN Elevated blood pressure reading without diagnosis of hypertension (Primary Dx) 03/15/2025 Travel 03/03/2025 Orders Only [facility] [place] [address] Ary Rubio ANP 02/25/2025 11:00 AM EDT [address] [place] [address] Ary Rubio ANP Chronic pain of left ankle (Primary Dx); Elevated blood pressure reading without diagnosis of hypertension 02/25/2025 Travel 02/24/2025 Telephone [facility] [place] [address] Ary Rubio ANP 02/18/2025 Patient Outreach [facility] [address] [facility] [place], [place] [phone] Ary Rubio ANP Pre-visit Planning (SDOH negative, Tobacco screening negative. ) from Last 3 Months Immunizations Immunization Administration [...] Sign Reading Time Taken Comments Blood Pressure 140/70 04/08/2025 12:06 PM EDT Pulse 65 04/08/2025 12:06 PM EDT Temperature 36.2 C (97.1 F) 04/08/2025 12:06 PM EDT Respiratory Rate 14 04/08/2025 12:0 6 PM EDT Oxygen Saturation 98% 04/08/2025 12: 06 PM EDT Inhaled Oxygen Concentration - - Weight 51.6 kg (113 lb 12.8 oz) 025 12:06 PM EDT Height 147.3 cm (4' 10 ) 02/25/2025 11: 08 AM EDT Body Mass Index 23.78 02/25/2025 11:08 AM EDT Plan of Treatment Health Maintenance Due Date Last Done Comments CT Colonography 1950 FIT DNA/Cologuard 1950 FIT 1950 FOBT 1950 Sigmoidoscopy 1950 Hepatitis C Screening 02/08/1970 Pneumococcal Vaccine: 50+ Years (3 of 3 - PCV20 or PCV21) 10/01/2019 10/01/2014, 08/18/2013 COVID-19 Vaccine (3 - season) 2025 12/05/2020, 11/07/2020 Influenza Vaccine (#1) 2025 , 05/22/2023, 04/13/2022, Additional history exists Colonoscopy 05/03/2025 05/03/2015 Colorectal Cancer Screening 05/03/2025 Depression Screening 08/18/2025 08/18/2024, 08/18/19 SDOH Screening 02/18/2026 02/18/2025 Alcohol/Substance Use Screening 02/25/2026 02/25/2025 DTaP/Tdap/Td Vaccines (2 - Td or Tdap) 03/25/2026 01/30/2013 Postponed from 01/30/2023 (Patient Refused) Tobacco Screening 04/08/2026 04/08/2025 RSV Patients and Patients Aged 60 years or older (1 - 1-dose 75+ series) 02/08/2027 Mammogram 03/11/2027 03/11/2025, 02/03, 02/27/2024, Additional history exists Zoster Vaccines Completed 05/05/2024, [...] Procedure Name Priority Date/Time Associated Diagnosis Comments CT ABDOMEN PELVIS W CONTRAST Routine 04/05/2025 12:26 PM EDT URINALYSIS WITH REFLEX MICROSCOPIC Routine 04/05/2025 11:59 AM EDT LIPASE Routine 04/05/2025 10:28 AM EDT COMPREHENSIVE METABOLIC PANEL Routine 04/05/2025 10:28 AM EDT APTT Routine 04/05/2025 10:28 AM EDT PROTHROMBIN TIME-INR Routine 04/05/2025 10:28 AM EDT CBC WITH AUTO DIFFERENTIAL Routine 04/05/2025 10:28 AM EDT BI MAMMOGRAM SCREENING TOMOSYNTHESIS BILATERAL Routine 03/11/2025 9:21 AM EDT MR ANKLE WO CONTRAST LEFT Routine 03/03/2025 10:14 AM EDT HM COLONOSCOPY Routine 05/03/2015 from Last 3 Months or Most Recently Relevant to Health Maintenance Results * CT Abdomen Pelvis w/ Contrast (04/05/2025 12:26 PM EDT) Anatomical Region Laterality Modality Body, Pelvis, Abdomen Computed T omography 04/05/2025 12:2 6 PM EDT Narrative 04/05/2025 12:26 PM EDT [place] [address] CT Scan Report Signed Patient: Samia Castillo MR#: [id number] 43 : 1950 Acct:[id number] Age/Sex: 75 / F ADM Date: 04/05/25 Loc: .ED Attending Dr: Ordering Physician: Mehdi Mills DO Date of Service: 04/05/25 Procedure(s): CT abdomen pelvis w IV con Accession Number(s): [id number] cc: ARY RUBIO MICROBIOLOGICAL ANALYST; Mehdi Mills DO Report Number: [id number]: Total DLP = 467.00 mGy-cm CLINICAL HISTORY: abdominal pain, LLQ CT abdomen and pelvis with contrast Comparison: CT/REG/CO/SR - CT ABDOMEN PELVIS W IV CON - 07/11/23 21:02 EST Findings: The lung bases are clear. Unchanged irregular appearance of the gallbladder. There is a questionable gallstone measuring 0.4 cm. There is questionable wall thickening along the fundus. Right upper quadrant ultrasound is recommended for further evaluation. Increased prominence of the left renal pelvis. Wall thickening of the sigmoid colon which may be due to patient's history of prior diverticulitis however underlying mass is not excluded. No evidence of active inflammation/adjacent fat stranding. Atherosclerotic vascular calcifications. 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 Diffusely thickened urinary bladder wall which may be due to cystitis, chronic bladder outlet obstruction, or underdistention. No acute fracture. IMPRESSION: 1. Diffusely thickened urinary bladder wall which may be due to cystitis, chronic bladder outlet obstruction, or underdistention. 2. Wall thickening of the sigmoid colon which may be due to patient's history of prior diverticulitis however underlying mass is not excluded. No evidence of active inflammation/adjacent fat stranding. 3. Unchanged irregular appearance of the gallbladder. There is a questionable gallstone measuring 0.4 cm. There is questionable wall thickening along the fundus. Right upper quadrant ultrasound is recommended for further evaluation. 4. Increased prominence of the left renal pelvis. This document has been electronically signed by: Kenton Sanchez DO on 04/05/2025 12:26:02 Dictated By: Kenton Sanchez DO Signed By: <Electronically signed by Kenton Sanchez DO in OV> 04/05/25 1226 DD/ 1226 TD/TT: 04/05/25 1226 Ditch Digger: Procedure Note Donotuseinterpreter, Image - 04/05/[address] [place] [address] [address] Scan Report Signed Patient: Jesse Castillo#: [id number] [birth year] : 2Acct:[id number] Age/Sex: 75 / FADM Date: 04/05/25 Loc: HO.ED Attending Dr: Ordering Physician: Mehdi Mills DO Date of Service: 04/05/25 Procedure(s): CT abdomen pelvis w IV con Accession Number(s): [id number] cc: ARY RUBIO NP; Mehdi Mills DO Report Number: [id number]: Total DLP = 467.00 mGy-cm CLINICAL HISTORY: abdominal pain, LLQ CT abdomen and pelvis with contrast Comparison: CT/REG/CO/SR - CT ABDOMEN PELVIS W IV CON - 07/11/23 21:02 EST Findings: The lung bases are clear. Unchanged irregular appearance of the gallbladder. There is a questionable gallstone measuring 0.4 cm. There is questionable wall thickening along the fundus. Right upper quadrant ultrasound is recommended for further evaluation. Increased prominence of the left renal pelvis. Wall thickening of the sigmoid colon which may be due to patient's history of prior diverticulitis however underlying mass is not excluded. No evidence of active inflammation/adjacent fat stranding. Atherosclerotic vascular calcifications. 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 Diffusely thickened urinary bladder wall which may be due to cystitis, chronic bladder outlet obstruction, or underdistention. No acute fracture. IMPRESSION: 1. Diffusely thickened urinary bladder wall which may be due to cystitis, chronic bladder outlet obstruction, or underdistention. 2. Wall thickening of the sigmoid colon which may be due to patient's history of prior diverticulitis however underlying mass is not excluded. No evidence of active inflammation/adjacent fat stranding. 3. Unchanged irregular appearance of the gallbladder. There is a questionable gallstone measuring 0.4 cm. There is questionable wall thickening along the fundus. Right upper quadrant ultrasound is recommended for further evaluation. 4. Increased prominence of the left renal pelvis. This document has been electronically signed by: Kenton Sanchez DO on 04/05/2025 12:26:02 Dictated By: Kenton Sanchez DO Signed By: <Electronically signed by Kenton Sanchez DO in OV> 04/05/25 1226 DD/ 1226 TD/TT: 04/05/25 1226 Ditch Digger: us [facility] External Provider IMG CT PROCEDURES Edited Result - Final * Urinalysis w/reflex microscopic (04/05/2025 11:59 AM EDT) Color Urine Yellow [facility] Appearance Urine Clear [facility] PH 7.5 5.0 - 9.0 [facility] Glucose Urine UA Negative Negative mg/dL [facility] Urine Blood Negative Negative [facility] Specific [place] - Urine <=1.005 1.005 - 1.025 [facility] Urine Protein Negative Neg-Trace mg/dL [facility] Urine Ketones Negative Negative mg/dL [facility] Nitrite Urine Negative Negative [facility] Leukocyte Esterase Urine Negative Negative [facility] 04/05/2025 11:5 9 AM EDT 04/05/2025 12:03 PM EDT Narrative [facility] - 04/05/2025 12:13 PM EDT Urine, Clean Catch us Generic External Data Provider LAB URINE ORDERAB LES Final Result [facility] [address] [place] [phone] [phone] * (ABNORMAL) CBC auto differential (04/05/2025 10:28 AM EDT) White Blood Count 6.7 4.8 - 10.8 X10*3/uL [facility] Red Blood Count 4.93 4.20 - 5.50 X10*6/uL [facility] Hemoglobin 14.2 12.0 - 16.0 g/dl [facility] Hematocrit 41.2 37.0 - 47.0 % [facility] Mean Corpuscular Volume 83.6 80.0 - 98.0 fL [facility] Mean Corpuscular Hemoglobin 28.8 27.0 - 33.0 pg [facility] Mean Corpuscular HGB Conc 34.5 31.0 - 35.0 g/dl [facility] Red Cell Distribution Width 13.6 11.0 - 16.0 % [facility] Platelet Count 254 160 - 400 X10*3/uL [facility] Mean Platelet Volume 10.6 9.4 - 12.3 fL [facility] Neutrophils Percent Auto 65.2 45 - 73 % [facility] Imm Gran Pct Auto 0.4 0.0 - 0.4 % [facility] Lymphocytes Percent Auto 20.9 20 - 40 % [facility] Monocytes Percent Auto 11.4(H) 2 - 11 % [facility] Eosinophils Percent Auto 1.2 0 - 4 % [facility] Basophils Percent Auto 0.9 0 - 2 % [facility] NRBC Pct Auto 0.0 0.0 - 0.2 /100WBC [facility] Neutrophils Absolute Auto 4.4 2.0 - 8.3 x10*3/uL [facility] Imm Gran Abs Auto 0.03 0.00 - 0.03 X10*3/uL [facility] Lymphocytes Absolute Auto 1.4 1.2 - 4.9 X10*3/uL [facility] Monocytes Absolute Auto 0.8 0.1 - 1.2 X10*3/uL [facility] Eosinophils Absolute Auto 0.1 0.0 - 0.4 X10*3/uL [facility] Basophils Absolute Auto 0.1 0.0 - 0.2 X10*3/uL [facility] NRBC Abs Auto 0.000 0.0 - 0.012 X10*3/uL [facility] 04/05/2025 10:2 8 AM EDT 04/05/2025 10:33 AM EDT us Generic External Data Provider LAB BLOOD ORDERAB LES Final Result Performing Organization Address City/[facility]/ZIP Co de Phone Number [facility] [address] [place] [phone] * Partial Thromboplastin Time, Activated (APTT) (04/05/2025 10:28 AM EDT) Partial Thromboplastin Time 28.0 26.7 - 34.1 SEC [facility] 04/05/2025 10:2 8 AM EDT 04/05/2025 10:33 AM EDT us Generic External Data Provider LAB BLOOD ORDERAB LES Final Result Performing Organization Address City/[facility]/ZIP Co de Phone Number [facility] [address] [place] [phone] * Prothrombin Time-INR (04/05/2025 10:28 AM EDT) [facility] Prothrombin Time 11.7 10.9 - 12.4 SEC [facility] INTERNATIONAL NORM RATIO 1.0 0.9 - 1.1 [facility] Comment:INTERNATIONAL NORMAL IZED RATIO (INR) REFERENCE RANGES Reference RangeFor patients not on anticoagulant therapy: 0.9 - 1.1INR ranges for oral anticoagulanttherapy:For prevention and treatment of venous thrombosis and pulmonary embolism: 2.0 - 3.0For acute myocardial infarction with aspirin therapy: 2.0 - 3.0For acute myocardial infarction without aspirin therapy: 3.0 - 4.0For patients with mechanical prosthetic heart valves: 2.5 - 3.5 04/05/2025 10:2 8 AM EDT 04/05/2025 10:33 AM EDT Generic External Data Provider LAB BLOOD ORDERAB LES Final Result Performing Organization Address City/[facility]/ZIP Co de Phone Number [facility] [address] [place] [phone] * Lipase (04/05/2025 10:28 AM EDT) [facility] Lipase 24 8 - 78 U/L [facility] 04/05/2025 10:2 8 AM EDT 04/05/2025 10:33 AM EDT Generic External Data Provider LAB BLOOD ORDERAB LES Final Result Performing Organization Address [facility] Co de Phone Number [facility] [address] [place] [phone] * (ABNORMAL) Comprehensive Metabolic Panel (04/05/2025 10:28 AM EDT) [facility] Sodium 141 135 - 145 mmol/L [facility] Potassium 3.9 3.3 - 5.1 mmol/L [facility] Chloride 108 96 - 108 mmol/L [facility] Carbon Dioxide 24 22 - 29 mmol/L [facility] Anion Gap 13 12 - 20 [facility] Urea Nitrogen (BUN) 10 9 - 16 mg/dL [facility] Creatinine, Serum 0.76 0.5 - 1.4 mg/dL [facility] Creatinine Clr Calc Pharmacy 53.2 [facility] Comment:Provided height and weight: 160.02 cm,51.2 kg.eGFR (calculated from the MDRD study equation) and eCrCl(calculated from the Cockcroft-Gault equation) are based ondifferent parameters and may not yield comparable results.If eCrCl result is absurd, please check patient'sheight/weight. Estimated Glomerular Filt Rate >60 [facility] Comment:Chronic Kidney Disea se: Estimated GFR < 60 mL/min/1.31q8Nohgwp Kidney Disease: Estimated GFR < 15 mL/min/1.73m2 Glucose 112 60 - 115 mg/dL [facility] Calcium 9.5 8.4 - 10.2 mg/dL [facility] Bilirubin, Total 0.7 0.0 - 1.0 mg/dL [facility] Aspartate Amino Transferase 33(H) 5 - 31 U/L [facility] Alanine Aminotransferase 33(H) 0 - 31 U/L [facility] Total Protein 8.0 6.5 - 8.0 g/dL [facility] Albumin Level 4.6 3.5 - 5.0 g/dL [facility] Alkaline Phosphatase 85 39 - 117 U/L [facility] 04/05/2025 10:2 8 AM EDT 04/05/2025 10:33 AM EDT us Generic External Data Provider LAB BLOOD ORDERAB LES Final Result [facility] [address] [place] [phone] * BI Mammogram Screening Tomosynthesis Bilateral (03/11/2025 9:21 AM EDT) Anatomical Region Laterality Modality Breast Bilateral Mammography 03/11/2025 9:21 AM EDT Narrative 03/20/2025 9:55 PM EDT [facility] [address] [place] [address] Mammography Report Signed Patient: Samia Castillo MR#: [id number] 43 : 1950 Acct:[id number] Age/Sex: 75 / F ADM Date: 03/11/25 Loc: HO.MAMMO Attending Dr: Ary Rubio NP Ordering Physician: ARY RUBIO NP Results: 1Negative Date of Service: 03/11/25 Follow Up: 1 Year From Orig inal Mammogram Procedure(s): MM tomosynthesis screening BI Accession Number(s): [id number] cc: ARY RUBIO NP EXAMINATION: MM SCREENING DIGITAL BREAST TOMOSYNTHESIS, BILATERAL CLINICAL INFORMATION: Screening. Asymptomatic. COMPARISON: Comparison made to multiple prior, most recent February 27, 2024, and most remote January 06, 2019. TECHNIQUE: Digital breast tomosynthesis is performed in both the craniocaudal and mediolateral oblique views along with computer-aided detection (CAD). FINDINGS: BREAST COMPOSITION: There are scattered areas of fibroglandular density (ACR BI-RADS breast composition Category b). BILATERAL BREASTS: No significant masses, suspicious calcifications or other abnormalities are seen in either breast. MM/MM tomosynthesis screening BI IMPRESSION: BILATERAL BREASTS: Negative, no mammographic evidence of malignancy. Normal interval follow-up is recommended in 12 months. ASSESSMENT: BI-RADS 1 - Negative RECOMMENDATION: Routine annual mammography screening. FOLLOW-UP: 1 year F/U This examination should not preclude the clinical evaluation of a suspicious palpable abnormality. This patient's information was entered into a reminder system with a target due date for their next mammogram. Electronically signed by: Naif Christine MD 03/20/2025 09:53 PM EDT Dictated By: Naif Christine MD Signed By: <Electronically signed by Naif Christine MD in OV> 03/20/25 2153 DD/ 0 TD/TT: 03/11/25 0933 Ditch Digger: Procedure Note Donotuseinterpreter, Image - 03/20/2025 [facility] [address] [place] [address] Mammography Report Signed Patient: Jesse Castillo#: [id number] 43 : 2Acct:[id number] Age/Sex: 75 / FADM Date: 03/11/25 Loc: HO.MAMMO Attending Dr: Ary Rubio NP Ordering Physician: ARY RUBIO NPResults: 1Negative Date of Service: 03/11/25Follow Up: 1 Year From Orig inal Mammogram Procedure(s): MM tomosynthesis screening BI Accession Number(s): [id number] cc: ARY RUBIO NP EXAMINATION: MM SCREENING DIGITAL BREAST TOMOSYNTHESIS, BILATERAL CLINICAL INFORMATION: Screening. Asymptomatic. COMPARISON: Comparison made to multiple prior, most recent February 27, 2024, and most remote January 06, 2019. TECHNIQUE: Digital breast tomosynthesis is performed in both the craniocaudal and mediolateral oblique views along with computer-aided detection (CAD). FINDINGS: BREAST COMPOSITION: There are scattered areas of fibroglandular density (ACR BI-RADS breast composition Category b). BILATERAL BREASTS: No significant masses, suspicious calcifications or other abnormalities are seen in either breast. MM/MM tomosynthesis screening BI IMPRESSION: BILATERAL BREASTS: Negative, no mammographic evidence of malignancy. Normal interval follow-up is recommended in 12 months. ASSESSMENT: BI-RADS 1 - Negative RECOMMENDATION: Routine annual mammography screening. FOLLOW-UP: 1 year F/U This examination should not preclude the clinical evaluation of a suspicious palpable abnormality. This patient's information was entered into a reminder system with a target due date for their next mammogram. Electronically signed by: Naif Christine MD 03/20/2025 09:53 PM EDT Dictated By: Naif Christine MD Signed By: <Electronically signed by Naif Christine MD in OV> 03/20/25 2153 DD/ 0 TD/TT: 03/11/25 0933 Ditch Digger: Ary Rubio ANP IMG BI PROCEDURES Final Result * MR Ankle w/o Contrast Left (03/03/2025 10:14 AM EDT) Anatomical Region Laterality Modality Lower Extremities, Ankle Left Magneti c Resonance 03/03/2025 10:1 4 AM EDT Narrative 03/03/2025 11:55 AM EDT [place] [address] Magnetic Resonance Report Signed Patient: Samia Castillo MR#: [id number] 43 : 1950 Acct:[id number] Age/Sex: 75 / F ADM Date: 03/03/25 Loc: HO.MRI Attending Dr: Ary Rubio NP Ordering Physician: ARY RUBIO NP Date of Service: 03/03/25 Procedure(s): MR ankle LT wo con Accession Number(s): [id number] cc: ARY RUBIO NP EXAM: MRI left ankle without contrast TECHNIQUE: Multiplanar multisequence imaging performed through a lower extremity joint without contrast. INDICATION: Anterior left ankle pain and swelling, no trauma PRIOR: August 19, 2024 x-ray FINDINGS: Achilles tendon / plantar fascia: Achilles tendon and plantar fascia are intact without thickening or abnormal signal. Lateral ankle ligaments: Status right ligaments are intact. Talofibular and calcaneal fibular ligaments are intact. Deltoid ligament complex: Deltoid ligament complex is unremarkable Ankle tendons: Peroneal, medial, and the anterior ankle tendons are intact without abnormal signal or size changes. Talar Dome: There is a 5 x 7 mm region of delaminated articular cartilage involving the medial shoulder of talar dome. There is adjacent reactive marrow signal change. Sinus tarsi: The physiologic architecture of sinus tarsi is preserved. Bone/Marrow: Aside from changes in the medial talar dome, bone marrow signal is physiologic. Small enthesophytes are present on the calcaneus at the Achilles tendon and plantar fascial attachments. Articular cartilage: There are no articular cartilage defects aside from talar dome.. Soft Tissues: There are no soft tissue masses, fluid collections, or other abnormalities. MR/MR ankle LT wo con IMPRESSION: 5 x 7 mm area of delaminated articular cartilage involving medial talar dome with adjacent reactive marrow signal change. Small nonspecific calcaneal spurs. Electronically signed by: Darnell Fuentes MD 03/03/2025 11:52 AM EDT Dictated By: Darnell Fuentes MD Signed By: <Electronically signed by Darnell Fuentes MD in [place]> 03/03/25 1152 DD/ 1014 TD/TT: 03/03/25 1042 Ditch Digger: Procedure Note Donotuseinterpreter, Image - 03/03/[address] [address] Magnetic Resonance Report Signed Patient: Jesse Castillo#: [id number] 43 : [id number]:[id number] Age/Sex: 75 / FADM Date: 03/03/25 Loc: HO.MRI Attending Dr: Ary Rubio NP Ordering Physician: ARY RUBIO NP Date of Service: 03/03/25 Procedure(s): MR ankle LT wo con Accession Number(s): [id number] cc: ARY RUBIO NP EXAM: MRI left ankle without contrast TECHNIQUE: Multiplanar multisequence imaging performed through a lower extremity joint without contrast. INDICATION: Anterior left ankle pain and swelling, no trauma PRIOR: August 19, 2024 x-ray FINDINGS: Achilles tendon / plantar fascia: Achilles tendon and plantar fascia are intact without thickening or abnormal signal. Lateral ankle ligaments: Status right ligaments are intact. Talofibular and calcaneal fibular ligaments are intact. Deltoid ligament complex: Deltoid ligament complex is unremarkable Ankle tendons: Peroneal, medial, and the anterior ankle tendons are intact without abnormal signal or size changes. Talar Dome: There is a 5 x 7 mm region of delaminated articular cartilage involving the medial shoulder of talar dome. There is adjacent reactive marrow signal change. Sinus tarsi: The physiologic architecture of sinus tarsi is preserved. Bone/Marrow: Aside from changes in the medial talar dome, bone marrow signal is physiologic. Small enthesophytes are present on the calcaneus at the Achilles tendon and plantar fascial attachments. Articular cartilage: There are no articular cartilage defects aside from talar dome.. Soft Tissues: There are no soft tissue masses, fluid collections, or other abnormalities. MR/MR ankle LT wo con IMPRESSION: 5 x 7 mm area of delaminated articular cartilage involving medial talar dome with adjacent reactive marrow signal change. Small nonspecific calcaneal spurs. Electronically signed by: Darnell Fuentes MD 03/03/2025 11:52 AM EDT RP Dictated By: Darnell Fuentes MD Signed By: <Electronically signed by Darnell Fuentes MD in [place]> 03/03/25 1152 DD/ 1014 TD/TT: 03/03/25 1042 Ditch Digger: Ary BELLO MRI PROCEDURES Final Result * Colonoscopy (05/03/2015) Colonoscopy Normal Normal Historical Provider HEALTH MAINTENANCE Final Result from Last 3 Months or Most Recently Relevant to Health Maintenance Insurance [address] [place] [id number] [address] [place] [address] [id number] [place] [id number] 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
== END ==
LOC: HO.HGI 12:52
PROVIDERS: PCP Nurse Practitioner Primary Care; Visit Provider Nurse Practitioner
DX: K59.00 Constipation, unspecified (principal); K21.9 Gastro-esophageal reflux disease without esophagitis
CPT/HCPCS: 99213

== ENCOUNTER → 2025-05-19 12:51 | Outpatient (BNVA) | payer OTHER, SELFPAY | PROVIDERS: PCP Nurse Practitioner Primary Care; Visit Provider Nurse Practitioner | DX: K59.00 Constipation, unspecified (principal); K21.9 Gastro-esophageal reflux disease without esophagitis; Z87.898 Personal history of other specified conditions | CPT/HCPCS: 99212 ==